=== PATIENT | male | born 1950 | race Caucasian/White ===

== ENCOUNTER 2020-04-08 06:32 | Inpatient (IN) | payer MEDICARE, MEDICAID, SELFPAY ==
[2020-04-08] VITALS (12 sets, daily range): BP systolic 147–176; BP diastolic 81–91; PULSE 66–81; RESP 14–68; TEMP 36.5–37.2; O2SAT 95–99; BMI 30.6
--- NOTE | 2020-04-08 06:35 | CT_ITS ---
EXAMINATION: CT HEAD WITHOUT CONTRAST (STROKE PROTOCOL) CLINICAL INFORMATION: Stroke protocol. Left-sided hemiparesis COMPARISON: None TECHNIQUE: Contiguous axial imaging was performed from the skull base to vertex without intravenous administration of contrast. This CT examination was performed using dose optimization techniques as appropriate, variously including the following: *Automated exposure control *Adjustment of mA and/or kV according to patient size (this includes techniques or standardized protocols for targeted exams where dose is matched to indication/reason for exam; i.e. extremities or head) *Use of iterative reconstruction technique DLP: 631 mGy-cm FINDINGS: There is no evidence of acute intracranial hemorrhage or territorial infarction. No abnormal mass-effect or midline shift is seen. [place]ac[place] to white matter differentiation is well preserved. No extra-axial fluid collections are identified. The ventricles are normal in size. There is moderate periventricular white matter hypoattenuation consistent with chronic small vessel ischemic disease. There is a region of chronic appearing infarct in the left occipital lobe. Small region of chronic infarct is suspected in the right frontal lobe. The osseous structures and soft tissues are normal. The mastoid air cells and visualized portions of the paranasal sinuses are well-aerated. CT/CT head for stroke IMPRESSION: No acute intracranial hemorrhage. Chronic appearing regions of infarct in the left occipital lobe and right frontal lobe, on a background of moderate chronic small vessel ischemic disease. This limits detection for superimposed acute infarct, which would be better assessed with MRI. This critical result was discussed with Dr. Velasquez on 04/08/2020 6:52 AM, and it was ascertained that the content and urgency of the report was understood at the time of direct communication.
--- NOTE | 2020-04-08 06:35 | CT_ITS ---
CT ANGIOGRAM NECK WITH CONTRAST CT ANGIOGRAM BRAIN WITH CONTRAST CLINICAL INFORMATION: Left-sided hemiparesis. COMPARISON: Head CT performed earlier the same day appear TECHNIQUE: Test bolus sequences followed by intravenous administration 70 mL of Omnipaque 350. Helical imaging was performed in the axial plane from the thoracic inlet to the skull vertex. Delayed postcontrast imaging of the head was also performed. The data was processed at the radiological technologist workstation for generation of MIP sequences. Angled MIPs and volume rendered reformatted images were also generated at an offline 3D workstation under concurrent supervision. Stenoses are assessed in accordance with NASCET criteria unless otherwise indicated. This CT examination was performed using dose optimization techniques as appropriate, variously including the following: *Automated exposure control *Adjustment of mA and/or kV according to patient size (this includes techniques or standardized protocols for targeted exams where dose is matched to indication/reason for exam; i.e. extremities or head) *Use of iterative reconstruction technique FINDINGS: BRAIN: There is jeff to white matter differentiation loss within the right precentral gyrus just lateral to the right hand knob suggestive of a small acute right MCA territory infarct. MRI would be helpful in more definitive assessment. Advanced chronic microangiopathy and chronic appearing infarcts within the right frontal and left occipital lobes. There is no intracranial hemorrhage, hydrocephalus, extra-axial surface collection, midline shift, or other herniation pattern. The basilar cisterns are preserved. No significant soft tissue abnormality. No acute osseous abnormality. The paranasal sinuses and the mastoid air cells are well aerated.] CERVICAL SOFT TISSUES AND LUNG APICES: Imaged upper lungs are clear. Multilevel cervical spondylosis. No significant soft tissue findings. NECK CTA: [There is a classic 3 vessel configuration of the aortic arch. Proximal arch vessels are non-stenotic. The vertebral arteries are codominant. No significant ostial stenosis is visualized on either side. Both vertebral arteries are widely patent throughout their extracranial cervical course. Atherosclerotic calcification of the carotid bifurcations bilaterally resulting in less than 50% stenoses of the proximal internal carotid arteries bilaterally. BRAIN CTA: [There is normal opacification of major intracranial arteries. No focal flow-limiting stenosis nor discrete proximal large artery occlusion. There is a 2 mm infundibulum versus aneurysm projecting posterior medially from the communicating segment of the left internal carotid artery on image 365 of series 8. Timing of the contrast bolus allows assessment of the major dural venous sinuses, which all opacify normally] CT/CT angio head neck stroke IMPRESSION: - There is jeff to white matter differentiation loss within the right precentral gyrus just lateral to the right hand knob suggestive of a small acute right MCA territory infarct. MRI would be helpful in more definitive assessment. - Advanced chronic microangiopathy and chronic appearing infarcts within the right frontal and left occipital lobes. - No acute arterial occlusions and no significant arterial stenoses within the head or neck. - There is a 2 mm infundibulum versus aneurysm projecting posterior medially from the communicating segment of the left internal carotid artery on image 365 of series 8. Stroke protocol CTA discussed with Dr. Velasquez at 7:23 AM on April 08, 2020.
--- NOTE | 2020-04-08 06:35 | XR_ITS ---
EXAMINATION: XR CHEST CLINICAL INFORMATION: Stroke COMPARISON: None TECHNIQUE: Frontal view of the chest was obtained. FINDINGS: The cardiac and mediastinal contours are normal. The lungs are clear. There is no pleural effusion. There are degenerative changes of the spine. XR/XR chest 1V IMPRESSION: No evidence for acute disease in the chest.
--- NOTE | 2020-04-08 06:35 | ECG_ITS ---
Test Reason : STROKE Blood Pressure : / mmHG Vent. Rate : 077 BPM Atrial Rate : 077 BPM P-R Int : 148 ms QRS Dur : 088 ms QT Int : 386 ms P-R-T Axes : 072 046 053 degrees QTc Int : 436 ms Sinus rhythm with Premature supraventricular complexes Otherwise normal ECG No previous ECGs available Referred By: Janeth Velasquez Electronically Signed By:Maxi Barboza
--- NOTE | 2020-04-08 06:39 | PC.NURSE ---
at bedside. IV established, labs obtained. Pt to CT on hospital bed.
--- NOTE | 2020-04-08 06:40 | ED.NEUROSD ---
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 takes no medications Onset (ago): hour(s) (3 hours noted symptoms but last normal 1030pm) Location: left face, left arm, left leg and ataxia History of same: No Severity: severe Quality: weak and constant Relieving factors: none Exacerbating factors: none Context: sudden onset On Anticoagulants: No Associated symptoms: denies other symptoms Related Data Home Medications Medication Instructions Recorded Confirmed No Known Home Meds 04/08/20 04/08/20 Allergies Allergy/AdvReac Type Severity Reaction Status Date / Time Penicillins Allergy Unknown Unknown Verified 04/08/20 06:48 Review of Systems Review of Systems: Constitutional : No Weight loss, No Fever, No Chills, No Fatigue, No Malaise ENT/Mouth : No sore throat, No Rhinorrhea Eyes: No Eye Pain, No Swelling, No Redness Cardiovascular : No Chest Pain, No SOB, No Dyspnea on Exertion, No Orthopnea, No Edema, No Palpitations Respiratory : No Cough, No Sputum, No Wheezing Gastrointestinal : No Nausea, No Vomiting, No Diarrhea, No Constipation, No abdominal Pain, No Hematochezia, No Melena Genitourinary : No Dysuria, No Urinary Frequency, No Hematuria, Musculoskeletal : No joint pain, No Myalgias, No Joint Swelling Skin : No Skin Lesions, No rash Neuro : pos Weakness, No Numbness, No Dizziness, No Headache Psych : No Anxiety/Panic, No Depression Heme/Lymph: No Bruising, No Bleeding,No Lymphadenopathy Endocrine : No Polyuria, No Polydipsia All other systems reviewed and are negative [facility] Past Medical History Attestation statement: The following information was validated with the patient. Medical History No known health problems Social History Social History (Updated 04/08/20 @ 06:49 by Janeth Velasquez DO) Smoking Status: Current every day smoker Use of substances other than those prescribed or required for medical reasons: No Advance Directives: No Physical Exam Vital Signs: Vital Signs: Last Vital Signs Temp 98.9 F 04/08/20 07:24 Pulse 81 04/08/20 07:24 Resp 17 04/08/20 07:24 BP 154/86 H 04/08/20 07:24 Pulse Ox 97 04/08/20 07:24 Body Mass Index 30.6 Appearance: Alert. Oriented X3. No acute distress. Eyes: Pupils equal, round and reactive to light. ENT: Pharynx normal. Neck: Normal inspection. Neck supple. CVS: Normal heart rate and rhythm. Pulses normal. Respiratory: No respiratory distress. Breath sounds normal. Abdomen: Soft and nontender. Skin: Skin warm and dry. Normal skin color. Normal skin turgor. Extremities: No lower extremity edema. No calf ttp Neuro: Oriented X 3. dense L sided hemiparesis. No sensory deficit. unable to ambulate, L sided facial weakness Course Course Course Narrative: 652 call from [facility] - no acute hemorrhage, chronic small vessel ischemia change, old infarcts in occipital and frontal lobe patient still has facial droop but now able to move L left leg much better is starting to move L arm patient is at 4 hour shayna now I would not be able to get MRI for wake up within 4.5 hours of his onset. call from [facility] 723 am - small stroke precentral gyrus no large vessel occlusion, no clot noted, vessels are open, stroke visible on CTA PO aspirin ordered admit ordered MDM - Neuro Symptoms/Deficit MDM Narrative Medical decision making narrative: 70 yo male with dense L sided hemiparesis onset when he woke at 330am to urinate (which is normal for him to get up) does not have regular care, no AC therapy, + smoker, he was last normal at 1030pm - given onset he is not a candidate for tPa as last known well was 1030, he presented late due to issues caring for , CTA ordered for possible thrombectomy candidate. Lab Data Result diagrams: 04/08/20 06:40 04/08/20 06:40 Labs: Lab Results 01/04/08/20 04/08/20 Range/Units 06:40 06:40 06:40 WBC 6.6 (4.8-10.8) X10*3/uL RBC 5.19 (4.60-5.80) X10*6/uL Hgb 16.1 (14.0-18.0) g/dl Hct 49.4 (42-52) % MCV 95.2 (80-98) fL MCH 31.0 (27.0-33.0) pg MCHC 32.6 (31.0-36.0) g/dl RDW 12.8 (11.0-16.0) % Plt Count 252 (160-400) X10*3/uL MPV 8.9 L (9.4-12.4) fL Immature Gran % (Auto) 0.2 (0.0-0.4) % Neut % (Auto) 66.4 (45-73) % Lymph % (Auto) 19.8 L (20-40) % [place] % (Auto) 11.4 H (2-11) % Eos % (Auto) 1.7 (0-4) % Baso % (Auto) 0.5 (0-2) % Lymph # (Auto) 1.3 (1.2-4.9) X10*3/uL [place] # (Auto) 0.8 (0.1-1.2) X10*3/uL Eos # (Auto) 0.1 (0.0-0.4) X10*3/uL Baso # (Auto) 0.0 (0.0-0.2) X10*3/uL Abs Immat Gran (auto) 0.01 (0.00-0.03) X10*3/uL Absolute Neuts (auto) 4.4 (2.0-8.3) X10*3/uL Absolute Nucleated RBC 0.000 (0.0-0.012) X10*3/uL Nucleated RBC % (auto) 0.0 (0.0-0.2) /100WBC PT 10.5 L (10.8-13.0) SEC INR 0.9 (0.9-1.1) APTT 33.2 (24.1-38.0) SEC Sodium 143 (135-145) mmol/L Potassium 4.7 (3.3-5.1) mmol/l Chloride 109 H (96-108) mmol/L Carbon Dioxide 26 (22-29) mmol/L Anion Gap 13 (12-20) BUN 16 (9-16) mg/dL Creatinine 0.99 (0.5-1.4) mg/dL Estim Creat Clear Calc 62.0 Estimated GFR > 60 Random Glucose 105 (60-115) mg/dL Calcium 9.1 (8.4-10.2) mg/dL Magnesium 2.3 (1.6-2.6) mg/dL Total Bilirubin 0.7 (0.0-1.0) mg/dL Direct Bilirubin 0.2 (0.0-0.5) mg/dL AST 12 (5-37) U/L ALT 8 (0-40) U/L Alkaline Phosphatase 66 (39-117) U/L Troponin I High Sens (<3.5-35.0) ng/L Total Protein 7.0 (6.5-8.0) g/dL Albumin 4.6 (3.5-5.0) g/dL COVID-19 (MARTHA) (Negative) COVID-19 Clin Com 04/08/20 04/08/20 Range/Units 06:40 06:42 WBC (4.8-10.8) X10*3/uL RBC (4.60-5.80) X10*6/uL Hgb (14.0-18.0) g/dl Hct (42-52) % MCV (80-98) fL MCH (27.0-33.0) pg MCHC (31.0-36.0) g/dl RDW (11.0-16.0) % Plt Count (160-400) X10*3/uL MPV (9.4-12.4) fL Immature Gran % (Auto) (0.0-0.4) % Neut % (Auto) (45-73) % Lymph % (Auto) (20-40) % [place] % (Auto) (2-11) % Eos % (Auto) (0-4) % Baso % (Auto) (0-2) % Lymph # (Auto) (1.2-4.9) X10*3/uL [place] # (Auto) (0.1-1.2) X10*3/uL Eos # (Auto) (0.0-0.4) X10*3/uL Baso # (Auto) (0.0-0.2) X10*3/uL Abs Immat Gran (auto) (0.00-0.03) X10*3/uL Absolute Neuts (auto) (2.0-8.3) X10*3/uL Absolute Nucleated RBC (0.0-0.012) X10*3/uL Nucleated RBC % (auto) (0.0-0.2) /100WBC PT (10.8-13.0) SEC INR (0.9-1.1) APTT (24.1-38.0) SEC Sodium (135-145) mmol/L Potassium (3.3-5.1) mmol/l Chloride (96-108) mmol/L Carbon Dioxide (22-29) mmol/L Anion Gap (12-20) BUN (9-16) mg/dL Creatinine (0.5-1.4) mg/dL Estim Creat Clear Calc Estimated GFR Random Glucose (60-115) mg/dL Calcium (8.4-10.2) mg/dL Magnesium (1.6-2.6) mg/dL Total Bilirubin (0.0-1.0) mg/dL Direct Bilirubin (0.0-0.5) mg/dL AST (5-37) U/L ALT (0-40) U/L Alkaline Phosphatase (39-117) U/L Troponin I High Sens < 3.5 (<3.5-35.0) ng/L Total Protein (6.5-8.0) g/dL Albumin (3.5-5.0) g/dL COVID-19 (MARTHA) Negative (Negative) COVID-19 Clin Com See Note ECG Data Attestation: I personally reviewed and interpreted this ECG as follows: ECG interpretation date: 04/08/20 ECG interpretation time: 07:24 Interpretation: Rate: 77 Rhythm: NSR [place]: normal Normal P waves. Normal AUTUMN. Normal QRS complex. ST T wave : normal qTC: normal prior studies: no acute ischemia The study has been interpreted contemporaneously by me. . NIH Stroke Scale Internal: Initial- Upon Arrival Level of Consciousness: Alert Level of Consciousness Questions: Answers both questions correctly Level of Consciousness Commands: Performs both tasks correctly Best Gaze: Normal Visual: No visual loss Facial Palsy: Complete paralysis Motor Arm (Right): No drift Motor Arm (Left): No movement Motor Leg (Right): No drift Motor Leg (Left): No effort against gravity Limb Ataxia: Present in one limb Sensory: Normal Best Language: No aphasia Dysarthia: Normal Extinction and Inattention: No abnormality Score: 11 Discharge Plan Discharge Clinical Impression: Cerebrovascular accident Patient Disposition: Admitted As Inpatient Prescriptions: No Action No Known Home Meds RF: 0
[2020-04-08 06:48] LABS: MANUAL DIFF FLAG NO
--- NOTE | 2020-04-08 06:48 | PC.NURSE ---
Per pt, no known home medications. Pt states he has not seen a doctor in several years.
[2020-04-08 06:54] LABS: Basophils Percent Auto 0.5 % (0-2); Eosinophils Absolute Auto 0.1 X10*3/uL (0.0-0.4); Eosinophils Percent Auto 1.7 % (0-4); Hematocrit 49.4 % (42-52); Hemoglobin 16.1 g/dl (14.0-18.0); Imm Gran Abs Auto 0.01 X10*3/uL (0.00-0.03); Imm Gran Pct Auto 0.2 % (0.0-0.4); Lymphocytes Absolute Auto 1.3 X10*3/uL (1.2-4.9); Lymphocytes Percent Auto 19.8 % (20-40); Mean Corpuscular HGB Conc 32.6 g/dl (31.0-36.0); Mean Corpuscular Volume 95.2 fL (80-98); Mean Platelet Volume 8.9 fL (9.4-12.4); Monocytes Absolute Auto 0.8 X10*3/uL (0.1-1.2); Monocytes Percent Auto 11.4 % (2-11); Neutrophils Absolute Auto 4.4 X10*3/uL (2.0-8.3); Neutrophils Percent Auto 66.4 % (45-73); Platelet Count 252 X10*3/uL (160-400); Red Blood Count 5.19 X10*6/uL (4.60-5.80); Red Cell Distribution Width 12.8 % (11.0-16.0); White Blood Count 6.6 X10*3/uL (4.8-10.8)
[2020-04-08 07:00] LABS: INTERNATIONAL NORM RATIO 0.9 (0.9-1.1); Prothrombin Time 10.5 SEC (10.8-13.0)
[2020-04-08] MEDS: iohexoL 350 MG/ML 100 ML INFUS..BTL IV (07:00)
[2020-04-08 07:03] LABS: Partial Thromboplastin Time 33.2 SEC (24.1-38.0)
[2020-04-08 07:07] LABS: COVID-19 Test Negative (Negative)
[2020-04-08 07:19] LABS: Alanine Aminotransferase 8 U/L (0-40); Albumin Level 4.6 g/dL (3.5-5.0); Alkaline Phosphatase 66 U/L (39-117); Anion Gap 13 (12-20); Aspartate Amino Transferase 12 U/L (5-37); Bilirubin Direct 0.2 mg/dL (0.0-0.5); Bilirubin Total 0.7 mg/dL (0.0-1.0); Blood Urea Nitrogen 16 mg/dL (9-16); Calcium 9.1 mg/dL (8.4-10.2); Carbon Dioxide 26 mmol/L (22-29); Chloride 109 mmol/L (96-108); Estimated Glomerular Filt Rate > 60; Glucose Random 105 mg/dL (60-115); Magnesium 2.3 mg/dL (1.6-2.6); Potassium 4.7 mmol/l (3.3-5.1); Sodium 143 mmol/L (135-145)
[2020-04-08 07:20] LABS: Troponin-I High Sensitivity < 3.5 ng/L (<3.5-35.0)
[2020-04-08] MEDS: Aspirin Enteric Coated 325 MG TABLET.DR PO (07:33)
[2020-04-08] MEDS: 0.9 % Sodium Chloride 500 ML IV (07:34)
--- NOTE | 2020-04-08 08:45 | PC.NURSE ---
pt has impaired mobility in left arm. able to raise left arm slightly, but not able to squeeze fingers. right arm has full range of motion. pt able to lift both legs and push/pull with both feet bilaterally. facial droop noted on left side. alert and oriented x3. speech is clear.
[2020-04-08 09:06] LABS: Glucose, Whole Blood 96 mg/dL (60-115)
--- NOTE | 2020-04-08 09:59 | MR_ITS ---
EXAMINATION: MR BRAIN WITHOUT CONTRAST CLINICAL INFORMATION: Stroke evaluation. COMPARISON: CT from 04/08/2020 TECHNIQUE: Multiplanar, multisequence imaging of the brain was performed without contrast. FINDINGS: There is restricted diffusion in the precentral gyrus of the posterior right frontal lobe along the mid to high convexity and to a lesser degree affecting a portion of the postcentral gyrus of the right parietal lobe as well. No significant mass effect or hemorrhagic conversion visible. There is encephalomalacia and gliosis with chronic hemosiderin staining in the left occipital lobe due to a presumed chronic infarct. Severe chronic white matter microangiopathy evident with generalized parenchymal volume loss. There is no evidence of hydrocephalus. No extra-axial fluid collections are seen. There are small chronic infarcts in the cerebellum. The brainstem is normal. The major intracranial flow voids at the level of the [place] of [place] are preserved. There is a 2.0 cm retention cyst in the left maxillary antrum with mild mucosal thickening. The mastoid air cells are aerated. The craniovertebral junction, marrow signal, and midline structures are normal. The dural venous sinus flow voids are maintained. There is significant disc space narrowing with a disc-osteophyte complex mildly impressing upon the ventral thecal sac at the C4-C5 level. MR/MR head/brain wo con IMPRESSION: 1. Acute infarct involving the precentral gyrus in the posterior right frontal lobe and a smaller portion of the adjacent postcentral gyrus in the right parietal lobe without hemorrhagic conversion or significant mass effect. 2. Chronic infarct in the left occipital lobe. Severe chronic white matter microangiopathy and generalized parenchymal volume loss. Small chronic infarcts in the cerebellum.
--- NOTE | 2020-04-08 10:01 | PM.IMHP ---
History of Present Illness Date of Service: 04/08/20 Chief Complaint: Weakness 70 year old man presenting with weakness. Three hundred thirty in the morning to urinate and fell to the ground. He noted that his left leg and left arm were paralyzed. he did not seek medical attention immediately. He reported that had right eye cloudiness to his peripheral vision and floaters over the last 3 months. He reported that he has not seen a doctor in more than 40 years and has no medical history as far as he is concerned. 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 He also does not take any medications. He denied chest pain, shortness of breath, nausea, vomiting, diarrhea. In the ER, his blood pressure was noted to be elevated. He does smoke a pack to a pack and half of cigarettes a day. Head and neck CTA showed small acute right MCA territory infarction. Chronic appearing infarcts within the right frontal and left occipital lobe. No acute occlusion or stenosis noted. His labs are within acceptable limits, vital signs are stable and blood pressure is improving. He was given aspirin, atorvastatin and year. Will be admitted for further management and treatment of acute stroke. Review of Systems Review of Systems: Denies any recent fever chills or decrease in appetite respiratory denies any shortness of breath coverage production cardiovascular is adjustment of any PND or edema gastrointestinal denies any dysphagia abdominal pain nausea vomiting or diarrhea genitourinary denies any dysuria frequency or hematuria musculoskeletal denies any joint pain or swelling neuropsych See above all other systems reviewed are negative [facility] Medical History No known health problems Family History (Updated 04/08/20 @ 12:13 by Yvonne Sher NP) Other Stroke Social History (Updated 04/08/20 @ 12:14 by Yvonne Sher NP) Smoking Status: Current every day smoker Packs Per Day: 1 Use of substances other than those prescribed or required for medical reasons: No Advance Directives: No Meds Allergies Allergy/AdvReac Type Severity Reaction Status Date / Time Penicillins Allergy Unknown Unknown Verified 04/08/20 06:48 Home Medications Medication Instructions Recorded Confirmed Type No Known Home Meds 04/08/20 04/08/20 History Physical Exam Vital Signs and Narrative: Vital Signs: Last Vital Signs Temp 98.0 F 04/08/20 08:30 Pulse 75 04/08/20 08:30 Resp 20 04/08/20 08:30 BP 176/91 H 04/08/20 08:30 Pulse Ox 97 04/08/20 08:30 Body Mass Index 30.6 Appearing in no acute distress head is normocephalic atraumatic eyes pupils are PERRLA sclera is anicteric mouth throat mucous membranes are intact and moist neck is supple no lymphadenopathy, no JVD noted lung sounds are clear to auscultation heart regular rate rhythm, clear S1, S2 positive bowel sounds, abdomen is soft, nontender neuro patient is alert x3, Dense but improving hemiplegia to right arm. Results Labs CBC and Chem 7: 04/08/20 06:40 04/08/20 06:40 Labs: Laboratory Results - last 24 hr 04/08/20 04/08/20 04/08/20 06:37 06:37 06:40 MCV 95.2 MCH 31.0 MCHC 32.6 RDW 12.8 Plt Count 252 MPV 8.9 L Immature Gran % (Auto) 0.2 Neut % (Auto) 66.4 Lymph % (Auto) 19.8 L [place] % (Auto) 11.4 H Eos % (Auto) 1.7 Baso % (Auto) 0.5 Lymph # (Auto) 1.3 [place] # (Auto) 0.8 Eos # (Auto) 0.1 Baso # (Auto) 0.0 Abs Immat Gran (auto) 0.01 Absolute Neuts (auto) 4.4 Absolute Nucleated RBC 0.000 Nucleated RBC % (auto) 0.0 PT Whole Blood PT 12.0 INR Whole Blood INR 1.0 APTT Anion Gap Estim Creat Clear Calc Estimated GFR POC Glucose 96 Random Glucose Calcium Magnesium Total Bilirubin Direct Bilirubin AST ALT Alkaline Phosphatase Troponin I High Sens Total Protein Albumin COVID-19 (MARTHA) COVID-19 Clin Com 04/08/20 04/08/20 04/08/20 06:40 06:40 06:40 MCV MCH MCHC RDW Plt Count MPV Immature Gran % (Auto) Neut % (Auto) Lymph % (Auto) [place] % (Auto) Eos % (Auto) Baso % (Auto) Lymph # (Auto) [place] # (Auto) Eos # (Auto) Baso # (Auto) Abs Immat Gran (auto) Absolute Neuts (auto) Absolute Nucleated RBC Nucleated RBC % (auto) PT 10.5 L Whole Blood PT INR 0.9 Whole Blood INR APTT 33.2 Anion Gap 13 Estim Creat Clear Calc 62.0 Estimated GFR > 60 POC Glucose Random Glucose 105 Calcium 9.1 Magnesium 2.3 Total Bilirubin 0.7 Direct Bilirubin 0.2 AST 12 ALT 8 Alkaline Phosphatase 66 Troponin I High Sens < 3.5 Total Protein 7.0 Albumin 4.6 COVID-19 (MARTHA) COVID-19 Clin Com 04/08/20 06:42 MCV MCH MCHC RDW Plt Count MPV Immature Gran % (Auto) Neut % (Auto) Lymph % (Auto) [place] % (Auto) Eos % (Auto) Baso % (Auto) Lymph # (Auto) [place] # (Auto) Eos # (Auto) Baso # (Auto) Abs Immat Gran (auto) Absolute Neuts (auto) Absolute Nucleated RBC Nucleated RBC % (auto) PT Whole Blood PT INR Whole Blood INR APTT Anion Gap Estim Creat Clear Calc Estimated GFR POC Glucose Random Glucose Calcium Magnesium Total Bilirubin Direct Bilirubin AST ALT Alkaline Phosphatase Troponin I High Sens Total Protein Albumin COVID-19 (MARTHA) Negative COVID-19 Clin Com See Note Imaging Radiologist's Impressions: Impressions Chest X-Ray 04/08/20 06:35 IMPRESSION: No evidence for acute disease in the chest. Head CT 04/08/20 06:35 IMPRESSION: No acute intracranial hemorrhage. Chronic appearing regions of infarct in the left occipital lobe and right frontal lobe, on a background of moderate chronic small vessel ischemic disease. This limits detection for superimposed acute infarct, which would be better assessed with MRI. This critical result was discussed with Dr. Velasquez on 04/08/2020 6:52 AM, and it was ascertained that the content and urgency of the report was understood at the time of direct communication. Head/Neck CTA 04/08/20 06:35 IMPRESSION: - There is jeff to white matter differentiation loss within the right precentral gyrus just lateral to the right hand knob suggestive of a small acute right MCA territory infarct. MRI would be helpful in more definitive assessment. - Advanced chronic microangiopathy and chronic appearing infarcts within the right frontal and left occipital lobes. - No acute arterial occlusions and no significant arterial stenoses within the head or neck. - There is a 2 mm infundibulum versus aneurysm projecting posterior medially from the communicating segment of the left internal carotid artery on image 365 of series 8. Stroke protocol CTA discussed with Dr. Velasquez at 7:23 AM on April 08, 2020. Assessment and Plan (1) Cerebrovascular accident: Qualifiers: CVA mechanism: unspecified Qualified Code(s): I63.9 - Cerebral infarction, unspecified Status: Acute 70 year old man admitted with stroke. Stroke. MRI, Echo, aspirn, statin, lipid panel, Neurology to follow. PT/OT. Elevated blood pressure reading. No history of hypertension DVT prophylaxis with Lovenox. Discussed with Dr. Thao Full code.
--- NOTE | 2020-04-08 10:17 | MHC.STROKE ---
Addendum entered by Paris Sandoval RN 04/09/20 14:19: The patient is willing to start on lipitor 20mg because is LDL is 93. He will see how he tolerates this. He does not want a high dose at this time. Addendum entered by Paris Sandoval RN 04/09/20 11:29: I MET WITH THE PATIENT TODAY TO DISCUSS HIS MRI, LIPID PANEL, ETC. I REVIEWED A SCREEN SHOT OF THE MRI WITH HIM AND IDENTIFIED THE LOCATION OF THE STROKES. RIGHT MCA AND LEFT OCCIPITAL. WE AGAIN DISCUSSED THE SYMPTOMS ASSOCIATED WITH THESE AREAS OF THE BRAIN. HIS LDL WAS 93 WHICH IS ONLY SLIGHTLY ELEVATED AND MENTIONED THAT THE GOAL IS 70. WE AGAIN TALKED ABOUT SMOKING CESSATION AND POSSIBLE STARTED ON CHANTIX. HE'S BEEN SMOKING SINCE AGE 15. HE STILL IS EXPERIENCING LEFT ARM DROOP AND HE IS USING HIS RIGHT ARM TO LEFT AND MOVE THAT LEFT ARM. HE IS STILL EXPERIENCING SOME PARTIAL RIGHT HEMIANOPSIA. WE DISCUSSED THE RECOMMENDATIONS FOR ACUTE REHAB, HE MENTIONED HIS DID HAVE PT/OT SERVICES AT HOME AND HE DISCUSSED THAT OPTION. HE IS VERY MUCH WORRIED ABOUT HER BECAUSE HE AND HIS SON ARE THE PRIMARY CAREGIVERS. I DID STRESS THE IMPORTANCE OF ACUTE REHAB AND HOW MANY SKILLS HE CAN LEARN AT THE REHAB FACILITY. HE IS STILL TRYING TO MAKE A DECISION. I GAVE HIM ADDITIONAL STROKE EDUCATION MATERIAL [[employer] HANDOUTS]. I WAS ABLE TO ANSWER ALL OF HIS QUESTIONS. I ROUNDED WITH DR PINZON AND DISCUSSED HIS CASE WITH KERVIN LOGAN IN CASE MANAGEMENT. Original Note: ARRIVED AT 0632 FOR SUSPECTED STROKE, STAT CT HEAD DONE AT 0640 FOLLOWED BY CTA H/N. NO BLEED, PRIOR SILENT STROKES NOTED, NO LVO. LAST KNOWN WELL 04/07/20 AT 2230 WHEN HE WENT TO BED. HE WAS SYMPTOM FREE ALL DAY YESTERDAY. HE WOKE AT 0330 WITH LEFT HEMIPARESIS. NIHSS = 11. HE IS OUT OF THE WINDOW FOR TPA AND NO INDICATION FOR THROMBECTOMY. HE IS RIGHT HANDED, HE PASSED SWALLOW SCREEN PRIOR TO ASPIRIN. I DID MEET WITH HIM AND INITIATE STROKE EDUCATION. I REVIEWED THE PLAN OF CARE AND PROVIDED REASSURANCE. HE CARES FOR HIS WHO IS BEDRIDDEN WITH MS (SHE SEES A NEUROLOGIST IN [facility]). HE HIMSELF HAS NOT SEEN A DOCTOR AND DOES NOT TAKE CARE OF HIMSELF. HE DOES SMOKE AND CANNOT TAKE, GUM, LOZENGE OR PATCH (SEVERE RASH/BLISTERS). HE COULD BENEFIT FROM CHANTIX. HIS MAP IS STAYING AROUND 116-120 WHICH IS IDEAL IN THE ACUTE PHASE. HIS SYMPTOMS ARE SLIGHTLY IMPROVING AFTER ASPIRIN. HE ADMITS TO POSSIBLE BLOOD CLOTS IN HIS LOWER EXTREMITIES IN THE PAST. I DID REVIEW THE CASE WITH DR NICHOLE. THE STROKE ORDER SET HAS BEEN USED. MRI IS BEING DONE WITHIN THE HOUR, ECHO ORDERED. LIPID PANEL, PT/OT. I WILL CONTINUE TO FOLLOW.
--- NOTE | 2020-04-08 10:35 | PM.NEUROCN ---
History of Present Illness Data of Consult Service Date: 04/08/20 Primary Care Provider: None Physician 70 years old man who slept with no significant problem at about 22:00 last night and woke up at 03:30 noticing that his left arm was weak. He did not come to emergency room right away and came at about 06:00. He was evaluated for acute stroke and his imaging revealed a stroke-like lesion with no large vessel disease and he was admitted for further evaluation. He was not having dizziness or headache or any leg weakness. There was no history of trauma or any complain of neck pain. Review of Systems Review of Systems: No recent trauma cold or flu-like illness. [facility] Past Medical History Medical History No known health problems Social History Social History (Updated 04/08/20 @ 06:49 by Janeth Velasquez DO) Smoking Status: Current every day smoker Use of substances other than those prescribed or required for medical reasons: No Advance Directives: No Meds Allergies Allergy/AdvReac Type Severity Reaction Status Date / Time Penicillins Allergy Unknown Unknown Verified 04/08/20 06:48 Home Medications Medication Instructions Recorded Confirmed Type No Known Home Meds 04/08/20 04/08/20 History Physical Exam Vital Signs: Vital Signs: Last Vital Signs Temp 97.7 F 04/08/20 10:31 Pulse 74 04/08/20 10:31 Resp 18 04/08/20 10:31 BP 149/91 H 04/08/20 10:31 Pulse Ox 97 04/08/20 10:31 Body Mass Index 30.6 He was alert and awake with normal spontaneity of speech fluency comprehension and affect. Pupils were equal and reactive to light and extraocular muscles were intact. This seems to be dense right hemianopsia. There is mild left central type facial weakness. He was unable to move his hand but able to left arm at shoulder joint against gravity. He was easily able to lift his leg above against gravity. Deep tendon reflexes were trace with flexor plantars. There was no sensory extinction. Results Labs CBC & Chem 7: 04/08/20 06:40 04/08/20 06:40 Labs: Short CBC 04/08/20 Range/Units 06:40 WBC 6.6 (4.8-10.8) X10*3/uL Hgb 16.1 (14.0-18.0) g/dl Hct 49.4 (42-52) % Plt Count 252 (160-400) X10*3/uL BMP 04/08/20 06:40 Sodium 143 Potassium 4.7 Chloride 109 H Carbon Dioxide 26 BUN 16 Creatinine 0.99 Calcium 9.1 Liver Function 04/08/20 Range/Units 06:40 Total Bilirubin 0.7 (0.0-1.0) mg/dL Direct Bilirubin 0.2 (0.0-0.5) mg/dL AST 12 (5-37) U/L ALT 8 (0-40) U/L Alkaline Phosphatase 66 (39-117) U/L Albumin 4.6 (3.5-5.0) g/dL His CT and CT of brain reviewed. Significant microvascular ischemic disease was noted including a chronic right basal ganglia area at larger lacunar-type infarct and left posterior cerebral artery infarct. A tiny aneurysm was also reported. Assessment and Plan (1) Multiple cerebral infarctions: Status: Acute 70 years old man with multiple multivessel cerebral infarctions. His deficit included left face and arm weakness, which was new, and a right hemianopsia, which probably was few weeks old. He came in with acute onset of left arm weakness but significantly delayed to the point that he could not be treated with intravenous tPA. There was no obvious large vessel disease. At this time I would recommend obtaining a noncontrast MRI of brain to define pathology and also investigate is hard to rule out cardiac source of embolism. In the meantime he should be treated with anti-platelet agent and statin. PT OT consultation is recommended. (2) Cerebral aneurysm: Status: Acute This size of his symptomatic aneurysm does not require any intervention at this time.
--- NOTE | 2020-04-08 10:44 | PC.NURSE ---
pt speech is intact. no distress noted. no changes in neuro assessment. seen by flight operation coordinator. awaiting MRI.
[2020-04-08] MEDS: Enoxaparin Sodium 40 MG/0.4 ML SYRINGE SUBCUT (12:41)
--- NOTE | 2020-04-08 15:50 | P.EN_ITS ---
Event Note Date of Service: 04/09/20 Event Note: Patient seen examined case discussed with APC agree with above lambert atment plan 70-year-old gentleman with no known history of diabetes hypertension or hyperlipidemia has not seen a physician in last several years presented to [facility] due to acute onset of left-sided weakness starting at 03:30 when patient woke up to use the bathroom he fell down but did not seek agitation e-mail attention immediately came to the emergency room at 06:30 a.m. as CTA head and neck revealed a small right MCA territory infarction due to delay in presentation patient was deemed not a candidate for tPA a MRI brain showed multiple old infarction involving left occipital lobe and cerebellum and an acute right frontal and adjuscent right parietal lobe infarction. On examination patient awake alert speech clear Neuro awake alert to time place and person, able to move left upper extremity but weakness of left hand. Plan Check echocardiogram, lipid profile, follow blood pressure closely avoid hypotension Obtain PT OT eval Tele monitor to rule out arrhythmia/AFib
[2020-04-08 15:57] LABS: Glucose, Whole Blood 91 mg/dL (60-115)
[2020-04-09 04:00] VITALS: BP 133/87; PULSE 66; RESP 18; TEMP 36.6; O2SAT 94
[2020-04-09 06:26] LABS: MANUAL DIFF FLAG NO
[2020-04-09 06:50] LABS: Basophils Percent Auto 0.6 % (0-2); Eosinophils Absolute Auto 0.2 X10*3/uL (0.0-0.4); Eosinophils Percent Auto 2.4 % (0-4); Hematocrit 47.9 % (42-52); Hemoglobin 15.7 g/dl (14.0-18.0); Imm Gran Abs Auto 0.02 X10*3/uL (0.00-0.03); Imm Gran Pct Auto 0.3 % (0.0-0.4); Lymphocytes Absolute Auto 1.2 X10*3/uL (1.2-4.9); Lymphocytes Percent Auto 19.7 % (20-40); Mean Corpuscular HGB Conc 32.8 g/dl (31.0-36.0); Mean Corpuscular Hemoglobin 30.7 pg (27.0-33.0); Mean Corpuscular Volume 93.7 fL (80-98); Mean Platelet Volume 9.3 fL (9.4-12.4); Monocytes Absolute Auto 0.7 X10*3/uL (0.1-1.2); Monocytes Percent Auto 11.3 % (2-11); Neutrophils Absolute Auto 4.1 X10*3/uL (2.0-8.3); Neutrophils Percent Auto 65.7 % (45-73); Platelet Count 248 X10*3/uL (160-400); Red Blood Count 5.11 X10*6/uL (4.60-5.80); Red Cell Distribution Width 12.6 % (11.0-16.0); White Blood Count 6.2 X10*3/uL (4.8-10.8)
[2020-04-09 07:05] VITALS: BP 137/83; PULSE 69; RESP 20; TEMP 36.7; O2SAT 96
[2020-04-09 07:10] LABS: Anion Gap 13 (12-20); Blood Urea Nitrogen 13 mg/dL (9-16); Calcium 8.8 mg/dL (8.4-10.2); Carbon Dioxide 24 mmol/L (22-29); Chloride 105 mmol/L (96-108); Cholesterol 160 mg/dL; Creatinine Clr Calc Pharmacy 66.7; Estimated Glomerular Filt Rate > 60; Glucose Random 84 mg/dL (60-115); HDL Cholesterol 54 mg/dL; LDL Cholesterol Calculated 93 mg/dl; Potassium 3.9 mmol/l (3.3-5.1); Sodium 138 mmol/L (135-145); Triglycerides 67 mg/dL
[2020-04-09] MEDS: Atorvastatin Calcium 80 MG TABLET PO (08:41)
[2020-04-09] MEDS: Aspirin Enteric Coated 81 MG TABLET.DR PO (08:41)
--- NOTE | 2020-04-09 08:58 | MHC.CM.PN ---
CM met with Patient at bed side. Patient lives in a house, with his who is bedridden , and with his Son, who is now caring for his . Patient has no PCP; he has not seen a Doctor in over 45 years (this will prevent home services from being an insurance paid option). Patient expressed interest in the area acute rehabs ([facility], [facility], and [facility]) and referrals will be made to those facilities. Patient has no HCP and is not sure if he wants to fill one out at this time. IMM addressed with Patient and the original has been given to him and a copy has been placed on the chart. CM has initiated and will follow for dc planning.
[2020-04-09 11:06] VITALS: BP 124/86; PULSE 77; RESP 20; TEMP 36.6; O2SAT 96
[2020-04-09 11:35] VITALS: BMI 30.6
[2020-04-09 12:01] VITALS: BP 124/86; PULSE 77; O2SAT 96
--- NOTE | 2020-04-09 13:00 | CA_ITS ---
Transthoracic Echocardiogram Patient (Last, First, Middle): Jeremy Winter, Gender: Male Date of : 1950 Age: 70 Procedure Date: 04/09/2020 Procedure Type: Transthoracic Echocardiogram [place] [facility] [place] Height: 157.48 cm Weight: 75.75 kg BSA: 1.77 m2 Heart Rate: bpm BP: 137 / 83 mmHg Approver: HELENA Referring MD: Yvonne Sher NP Symptoms: STROKE Conclusions: - Normal left ventricular size, thickness, systolic function, and wall motion. The visually estimated ejection fraction is between 60-65%. Diastolic function is normal for age. - Normal right ventricular cavity size and systolic function. - Both atria are normal in size. There is no evidence of interatrial shunt by color Doppler. Findings Left Ventricle Normal left ventricular size, thickness, systolic function, and wall motion. The visually estimated ejection fraction is between 60-65%. Diastolic function is normal for age. Right Ventricle Normal right ventricular cavity size and systolic function. Atria Both atria are normal in size. There is no evidence of interatrial shunt by color Doppler. Aortic Valve Normal aortic valve structure and function. There is no aortic valve stenosis. There is no aortic valve regurgitation. Mitral Valve Normal mitral valve structure and function. There is no mitral valve regurgitation. There is no mitral valve stenosis. Pulmonic Valve The pulmonic valve is likely normal. Tricuspid Valve Normal tricuspid valve structure and function. There is trace tricuspid valve regurgitation. Normal right atrial pressure. There is no evidence of pulmonary hypertension. Great Vessels All visible segments of the aorta are normal in size. The visualized portions of the pulmonary artery and branches are normal. Venous The inferior vena cava is normal in size and collapses greater than 50% with inspiration. Pericardium/Pleural There is no evidence of pericardial effusion. Prior Study Comparison No prior study available for comparison. Measurements 2D Linear Measurements IVSd: 0.70 0.6-0.9/0.6-1.0 cm LVIDd: 4.57 3.9-5.3/4.2-5.9 cm LVIDd Index: 2.58 2.4-3.2/2.2-3.1 cm/m2 LVIDs: 2.17 2.0-3.6 cm LVPWd: 0.97 0.7-1.1 cm Ao Root: 2.80 2.1-3.5 cm LA Diam: 3.10 2.7-3.8/3.0-4.0 cm LAIDs Index: 1.75 1.5-2.3 cm/m2 LV Mass: 153.18 67-162/88-224 g LV Mass Index: 86.55 43-95/49-115 g/m2 LVOT Diam: 2.00 3.0+(-)1.3 cm 2D Systolic Function EF 4C: 78.70 >55% Mitral Valve MV Pk E: 0.60 MV PK A: 0.57 MV Decel Time: 206.00 E/A: 1.10 E'Lateral: 14.20 E'Medial: 7.64 E/E' Med: 7.90 E/E' Lat: 4.20 PHT: 60.00 MVA PHT: 3.67 Decel [place]: 2.92 Aortic Valve AoV Pk Willie: 1.59 AoV Pk Grad: 10.00 LVOT LVOT Pk Willie: 1.30 LVOT Mn Willie: 0.93 LVOT VTI: 0.26 LVOT Pk Grad: 7.00 LVOT Mn Grad: 4.00 LVOT Diam: 2.00 LVOT Area: 3.14 Diastolic Function MV Pk E: 0.60 MV Pk A: 0.57 E/A: 1.10 E'Medial: 7.64 E/E' Med: 7.90 E' Laterial: 14.20 E/E' Lat: 4.20 Tricuspid Valve TR Pk Willie: 2.83 TR Pk Grad: 32.00 RA Press: 3.00 RVSP: 35.00 Great Vessels Aorta Ao Root-2D: 2.80 2.0-3.7 cm Ao Asc: 2.90 2.1-3.4 cm Updated in Other Vendor System with Status of Final Maxi Barboza MD electronically signed on 04/09/2020 11:11:42 AM with status of Final
[2020-04-09] MEDS: Enoxaparin Sodium 40 MG/0.4 ML SYRINGE SUBCUT (13:55)
--- NOTE | 2020-04-09 14:02 | MHC.CM.PN ---
Patient has been medically cleared for dc to home today with [facility]. A referral has been made to [facility], who is aware of today's dc. Dr. Tello Minor will see Patient for his initial PCP visit tomorrow at 2:30 PM and then give orders to the [facility] for home OT & PT.IMM addressed with Patient this morning. Patient is aware of and pleased to be able to return home today.
--- NOTE | 2020-04-09 15:35 | P.DS_ITS ---
DS: Providers Provider Date of Service: 04/09/20 Date of admission: 04/08/20 09:59 Primary care physician: None Physician Consults: 04/08/20 09:59 Consult to Neurology Routine Consulting Provider: [facility] Reason for consultation: STROKE Has provider been notified: No DS: Diagnosis Discharge Diagnosis (1) Cerebrovascular accident: Status: Acute DS: Medications Discharge Medications Home Medications: Previous Rx's Medication Instructions Recorded aspirin 81 mg PO DAILY #30 tab 04/09/20 atorvastatin [Lipitor] 20 mg PO BEDTIME #30 tab 04/09/20 clopidogrel [Plavix] 75 mg PO DAILY #30 tab 04/09/20 DS: Summary Hospital Course Hospital Course: History of presenting illness Chief Complaint: Weakness 70 year old man presenting with weakness. Three hundred thirty in the morning to urinate and fell to the ground. He noted that his left leg and left arm were paralyzed. he did not seek medical attention immediately. He reported that had right eye cloudiness to his peripheral vision and floaters over the last 3 months. He reported that he has not seen a doctor in more than 40 years and has no medical history as far as he is concerned. 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 He also does not take any medications. He denied chest pain, shortness of breath, nausea, vomiting, diarrhea. In the ER, his blood pressure was noted to be elevated. He does smoke a pack to a pack and half of cigarettes a day. Head and neck CTA showed small acute right MCA territory infarction. Chronic appearing infarcts within the right frontal and left occipital lobe. No acute occlusion or stenosis noted. His labs are within acceptable limits, vital signs are stable and blood pressure is improving. He was given aspirin, atorvastatin and year. Will be admitted for further management and treatment of acute stroke. Past medical history no known health problems Acute CVA/tobacco use disorder 70-year-old gentleman with no known history of diabetes, hypertension or hyperlipidemia presented with acute onset of left-sided weakness but patient did not seek attention immediately was outside window of tPA CTA head and neck revealed a small right MCA territory infarction, MRI brain showed multiple old infarction involving left occipital lobe and cerebellum and acute right frontal and adjacent right parietal lobe infarction, patient echocardiogram revealed normal EF 60-65%, no interatrial shunt was noted, LDL is 93 with a total cholesterol 160 , blood sugars are stable, the only risk factor for stroke is smoking therefore patient has been strongly advised to abstain from smoking patient gets blisters to nicotine patch, get hiccups from nicotine gums therefore recommended Chantix or hypnosis advised to discuss with primary care physician, due to multiple strokes ,it raise concern for atrial fibrillation therefore advice to follow-up with Cardiology for event recorder, PCP appointment has been made for him with Dr. Tello Minor for tomorrow recommended to get cardiology referral through him patient is being discharged with [facility] and OT services Patient seen by Dr. Rachel he recommend aspirin and Plavix for 1 month and after 1 month stop Plavix and continue aspirin patient has been also started on low- dose Lipitor. Time Spent with Patient Time attestation: Total time spent providing and/or coordinating discharge services: Discharge coordination time: Greater than 30 minutes Quality: Stroke Pt Provided Written Stroke Discharge Instructions: Patient given written information Physical Exam Vital Signs: Vital Signs: Last Vital Signs Temp 97.8 F 04/09/20 11:06 Pulse 77 04/09/20 12:01 Resp 20 04/09/20 11:06 BP 124/86 04/09/20 12:01 Pulse Ox 96 04/09/20 12:01 Body Mass Index 30.6 General patient resting comfortably in no acute distress. Neck is supple no JVD. CVS regular rate rhythm, Respiratory lungs clear to auscultation, no respiratory distress, no wheeze, no rhonchi. Gastrointestinal abdomen soft, nontender, bowel sounds audible, no guarding , no rigidity. Extremities no clubbing cyanosis or edema. Neuro patient awake alert x3, speech is clear, patient has left hand weakness, plantars are flexors, no sensory deficit. Skin no rash DS: Data Data Completed and Pending Labs on day of discharge: Laboratory Tests 04/08/20 04/08/20 04/08/20 06:37 06:37 06:40 WBC 6.6 RBC 5.19 Hgb 16.1 Hct 49.4 MCV 95.2 MCH 31.0 MCHC 32.6 RDW 12.8 Plt Count 252 MPV 8.9 L Immature Gran % (Auto) 0.2 Neut % (Auto) 66.4 Lymph % (Auto) 19.8 L Jennings % (Auto) 11.4 H Eos % (Auto) 1.7 Baso % (Auto) 0.5 Lymph # (Auto) 1.3 Jennings # (Auto) 0.8 Eos # (Auto) 0.1 Baso # (Auto) 0.0 Abs Immat Gran (auto) 0.01 Absolute Neuts (auto) 4.4 Absolute Nucleated RBC 0.000 Nucleated RBC % (auto) 0.0 PT Whole Blood PT 12.0 INR Whole Blood INR 1.0 APTT Sodium Potassium Chloride Carbon Dioxide Anion Gap BUN Creatinine Estim Creat Clear Calc Estimated GFR POC Glucose 96 Random Glucose Calcium Magnesium Total Bilirubin Direct Bilirubin AST ALT Alkaline Phosphatase Troponin I High Sens Total Protein Albumin Triglycerides Cholesterol LDL Cholesterol, Calc HDL Cholesterol COVID-19 ([facility]) COVID-19 Clin Com 04/08/20 04/08/20 04/08/20 06:40 06:40 06:40 WBC RBC Hgb Hct MCV MCH MCHC RDW Plt Count MPV Immature Gran % (Auto) Neut % (Auto) Lymph % (Auto) Jennings % (Auto) Eos % (Auto) Baso % (Auto) Lymph # (Auto) Jennings # (Auto) Eos # (Auto) Baso # (Auto) Abs Immat Gran (auto) Absolute Neuts (auto) Absolute Nucleated RBC Nucleated RBC % (auto) PT 10.5 L Whole Blood PT INR 0.9 Whole Blood INR APTT 33.2 Sodium 143 Potassium 4.7 Chloride 109 H Carbon Dioxide 26 Anion Gap 13 BUN 16 Creatinine 0.99 Estim Creat Clear Calc 62.0 Estimated GFR > 60 POC Glucose Random Glucose 105 Calcium 9.1 Magnesium 2.3 Total Bilirubin 0.7 Direct Bilirubin 0.2 AST 12 ALT 8 Alkaline Phosphatase 66 Troponin I High Sens < 3.5 Total Protein 7.0 Albumin 4.6 Triglycerides Cholesterol LDL Cholesterol, Calc HDL Cholesterol COVID-19 ([facility]) COVID-19 Clin Com 04/08/20 04/08/20 04/09/20 06:42 15:52 05:26 WBC 6.2 RBC 5.11 Hgb 15.7 Hct 47.9 MCV 93.7 MCH 30.7 MCHC 32.8 RDW 12.6 Plt Count 248 MPV 9.3 L Immature Gran % (Auto) 0.3 Neut % (Auto) 65.7 Lymph % (Auto) 19.7 L Jennings % (Auto) 11.3 H Eos % (Auto) 2.4 Baso % (Auto) 0.6 Lymph # (Auto) 1.2 Jennings # (Auto) 0.7 Eos # (Auto) 0.2 Baso # (Auto) 0.0 Abs Immat Gran (auto) 0.02 Absolute Neuts (auto) 4.1 Absolute Nucleated RBC 0.000 Nucleated RBC % (auto) 0.0 PT Whole Blood PT INR Whole Blood INR APTT Sodium Potassium Chloride Carbon Dioxide Anion Gap BUN Creatinine Estim Creat Clear Calc Estimated GFR POC Glucose 91 Random Glucose Calcium Magnesium Total Bilirubin Direct Bilirubin AST ALT Alkaline Phosphatase Troponin I High Sens Total Protein Albumin Triglycerides Cholesterol LDL Cholesterol, Calc HDL Cholesterol COVID-19 ([facility]) Negative COVID-19 Clin Com See Note 04/09/20 05:26 WBC RBC Hgb Hct MCV MCH MCHC RDW Plt Count MPV Immature Gran % (Auto) Neut % (Auto) Lymph % (Auto) Jennings % (Auto) Eos % (Auto) Baso % (Auto) Lymph # (Auto) Jennings # (Auto) Eos # (Auto) Baso # (Auto) Abs Immat Gran (auto) Absolute Neuts (auto) Absolute Nucleated RBC Nucleated RBC % (auto) PT Whole Blood PT INR Whole Blood INR APTT Sodium 138 Potassium 3.9 Chloride 105 Carbon Dioxide 24 Anion Gap 13 BUN 13 Creatinine 0.92 Estim Creat Clear Calc 66.7 Estimated GFR > 60 POC Glucose Random Glucose 84 Calcium 8.8 Magnesium Total Bilirubin Direct Bilirubin AST ALT Alkaline Phosphatase Troponin I High Sens Total Protein Albumin Triglycerides 67 Cholesterol 160 LDL Cholesterol, Calc 93 HDL Cholesterol 54 COVID-19 ([facility]) COVID-19 Clin Com Discharge Plan Discharge Patient Disposition: Home Health Service Referrals: [facility] [Outside] Physician,None [Primary Care Provider] - Discharge Medications: New aspirin 81 mg Tablet,Delayed Release (Dr/Ec) 81 mg PO DAILY Qty: 30 RF: 0 atorvastatin [Lipitor] 20 mg tablet 20 mg PO BEDTIME Qty: 30 RF: 0 clopidogrel [Plavix] 75 mg tablet 75 mg PO DAILY Qty: 30 RF: 0 Discharge Orders: Discharge Order (Routine); Ordered 04/09/20 Ordered By: Pauline Thao Diet: low fat, low cholesterol Activity on Discharge: As tolerated Stand Alone Forms: Patient Portal Discharge page Care Plan Goals: Abstain from smoking, close outpatient follow-up with primary care physician, take aspirin and Plavix for 1 month and then stop Plavix and take aspirin every day Health Concerns: Multiple CVA Plan of Treatment: Outpatient follow-up with primary care physician and outpatient cardiology referral for Holter monitor
== END 2020-04-09 15:51 | disposition home health service (06) | DRG 65 ==
LOC: HO.ED 09:00 → HO.EDOVER 10:29 → HO.IMC 14:52
PROVIDERS: Nurse Practitioner Acute Care; Admitting Provider Hospitalist; Emergency Provider Emergency Medicine; Visit Provider Hospitalist
DX: I63.511 Cerebral infarction due to unspecified occlusion or stenosis of right middle cerebral artery (principal); G81.94 Hemiplegia, unspecified affecting left nondominant side; F17.210 Nicotine dependence, cigarettes, uncomplicated; Z71.6 Tobacco abuse counseling; Z20.822 Contact with and (suspected) exposure to COVID-19; R29.711 NIHSS score 11
CPT/HCPCS: 29125; 36415; 70450; 70496; 70498; 70551; 71045; 80048; 80061; 80076; 82947; 83735; 84484; 85025; 85610; 85730; 87635; 93005; 93306; 96360; 97110; 97116; 97162; 97166; 97760; 99285; J1650; Q9967

== ENCOUNTER 2020-04-23 09:53 | Outpatient (REF) | payer MEDICARE, MEDICAID, SELFPAY ==
--- NOTE | ~2020-04-23 | US_ITS ---
EXAMINATION: US EXTRACRANIAL CAROTID DUPLEX, BILATERAL CLINICAL INFORMATION: Cerebral infarction. COMPARISON: None. TECHNIQUE: Real-time ultrasound and Doppler techniques (integrating B-mode 2-D vascular images, Doppler spectral analysis and color-flow Doppler imaging) were utilized to interrogate the extracranial carotid arteries, the vertebral arteries and proximal subclavian arteries bilaterally. The degree of stenosis is determined by criteria similar to NASCET. FINDINGS: Right Side: 1. There is hard atherosclerotic plaque seen in the bifurcation/proximal ICA region. 2. The common carotid artery PSV proximally is 115 cm/s and distally 101 cm/s. 3. The proximal internal carotid artery velocities are 131 cm/s systolic and 29.2 cm/s diastolic. 4. The proximal external carotid artery PSV is an 38 cm/s. 5. The vertebral artery shows antegrade flow. 6. The subclavian artery waveforms are normal. Left Side: 1. There is hard atherosclerotic plaque seen in the bifurcation/proximal ICA region. 2. The common carotid artery PSV proximally is 129 cm/s and distally 87.4 cm/s. 3. The proximal internal carotid artery velocities are 101 cm/s systolic and 24.4 cm/s diastolic. 4. The proximal external carotid artery PSV is 114 cm/s. 5. The vertebral artery shows antegrade flow. 6. The subclavian artery waveforms are normal. US/US carotid duplex BI IMPRESSION: 1. RIGHT: 50-79% range stenosis right internal carotid artery. 2. LEFT: No hemodynamically significant stenosis in the left carotid artery. 3. Normal antegrade flow seen in both vertebral arteries.
== END 2020-04-23 09:54 | disposition home or self-care (01) ==
LOC: HO.US 09:53
PROVIDERS: PCP Internal Medicine; Visit Provider Internal Medicine
DX: I65.21 Occlusion and stenosis of right carotid artery (principal)
CPT/HCPCS: 93880

== ENCOUNTER 2020-05-21 11:29 | Outpatient (REF) | payer MEDICARE, OTHER, SELFPAY ==
[2020-05-21 12:28] LABS: MANUAL DIFF FLAG NO
[2020-05-21 12:37] LABS: Basophils Percent Auto 0.7 % (0-2); Eosinophils Absolute Auto 0.1 X10*3/uL (0.0-0.4); Eosinophils Percent Auto 2.3 % (0-4); Hematocrit 46.4 % (42-52); Hemoglobin 15.4 g/dl (14.0-18.0); Imm Gran Abs Auto 0.01 X10*3/uL (0.00-0.03); Imm Gran Pct Auto 0.2 % (0.0-0.4); Lymphocytes Absolute Auto 1.1 X10*3/uL (1.2-4.9); Lymphocytes Percent Auto 18.7 % (20-40); Mean Corpuscular HGB Conc 33.2 g/dl (31.0-36.0); Mean Corpuscular Hemoglobin 30.8 pg (27.0-33.0); Mean Corpuscular Volume 92.8 fL (80-98); Mean Platelet Volume 9.1 fL (9.4-12.4); Monocytes Absolute Auto 0.6 X10*3/uL (0.1-1.2); Monocytes Percent Auto 10.2 % (2-11); Neutrophils Absolute Auto 3.9 X10*3/uL (2.0-8.3); Neutrophils Percent Auto 67.9 % (45-73); Platelet Count 244 X10*3/uL (160-400); Red Cell Distribution Width 12.6 % (11.0-16.0); White Blood Count 5.7 X10*3/uL (4.8-10.8)
[2020-05-21 13:05] LABS: Alanine Aminotransferase 11 U/L (0-40); Albumin Level 4.4 g/dL (3.5-5.0); Alkaline Phosphatase 66 U/L (39-117); Anion Gap 12 (12-20); Aspartate Amino Transferase 11 U/L (5-37); Bilirubin Total 0.9 mg/dL (0.0-1.0); Blood Urea Nitrogen 15 mg/dL (9-16); Calcium 9.1 mg/dL (8.4-10.2); Carbon Dioxide 28 mmol/L (22-29); Chloride 105 mmol/L (96-108); Cholesterol 117 mg/dL; Estimated Glomerular Filt Rate > 60; Glucose Fasting 92 mg/dL (60-99); HDL Cholesterol 54 mg/dL; LDL Cholesterol Calculated 56 mg/dl; Potassium 4.4 mmol/L (3.3-5.1); Sodium 141 mmol/L (135-145); Total Protein 6.8 g/dL (6.5-8.0); Triglycerides 38 mg/dL
== END 2020-05-21 11:30 | disposition home or self-care (01) ==
LOC: HO.LAB 11:29
PROVIDERS: PCP Internal Medicine; Visit Provider Internal Medicine
DX: Z00.00 Encounter for general adult medical examination without abnormal findings (principal); E11.9 Type 2 diabetes mellitus without complications
CPT/HCPCS: 36415; 80053; 80061; 85025

== ENCOUNTER 2020-10-13 10:27 | Outpatient (REF) | payer MEDICARE, OTHER, SELFPAY ==
[2020-10-13 12:40] LABS: Cholesterol 114 mg/dL; HDL Cholesterol 31 mg/dL; LDL Cholesterol Calculated 64 mg/dl; Triglycerides 98 mg/dL
== END 2020-10-13 10:28 | disposition home or self-care (01) ==
LOC: HO.LAB 10:27
PROVIDERS: PCP Internal Medicine; Visit Provider Internal Medicine
DX: Z20.822 Contact with and (suspected) exposure to COVID-19 (principal); R09.89 Other specified symptoms and signs involving the circulatory and respiratory systems; E11.9 Type 2 diabetes mellitus without complications
CPT/HCPCS: 80061; U0003; U0005

== ENCOUNTER 2021-11-04 11:04 | Outpatient (REF) | payer MEDICARE, OTHER, SELFPAY ==
[2021-11-04 13:28] LABS: Urine Cytology See Pathology rpt
== END 2021-11-04 11:05 | disposition home or self-care (01) ==
LOC: HO.LAB 11:04
PROVIDERS: PCP Internal Medicine; Visit Provider Internal Medicine
DX: R31.0 Gross hematuria (principal)
CPT/HCPCS: 87086; 88112

== ENCOUNTER 2022-12-03 11:24 | Outpatient (AMB) | payer MEDICARE, MEDICAID, SELFPAY ==
--- NOTE | 2022-12-03 11:27 | MHC.PC.OV ---
Vital Signs 12/03/22 11:28 Height 5 ft 10 in Weight 172 lb BMI 24.7 BP 134/80 Blood Pressure Location Lt brachial Position Sitting Pulse 73 Pulse Source Pulse Oximeter Pulse Oximetry (%) 98 Oxygen Delivery Method Room Air Intake Visit Reasons: F/u See bulletin board Allergies Penicillins Allergy (Unknown, Verified 12/03/22 11:28) Unknown Medication List - Last Reconciled 12/03/22 by Tello Minor MD aspirin 81 mg PO DAILY atorvastatin (Lipitor) 20 mg PO BEDTIME clopidogrel (Plavix) 75 mg PO DAILY Tobacco use date assessed: 12/03/22 Fall risk assessment: No Falls in past year Last assessed Fall Risk: 12/03/22 Dental Screening Dental Screen Date: 12/03/22 Did you have a dental visit in the last 12 months?: Yes Did you have a dental problem in the last 6 months where you did not have access to dental care?: No Was dental information given to patient?: Patient has dentist HPI F/u See bulletin board HPI Details hyperlipidemia; stopped rx a year ago PFSH Medical History Hyperlipidemia CVA (cerebral vascular accident) Cerebral aneurysm No known health problems Surgical History No history of previous surgery Family History Mother No problems noted. Other Stroke Social History Household Members: Family Housing: House Do you presently have visiting nurse or other home services: No Alcohol intake: never Patient Tobacco Use Status: Current everyday Tobacco user Tobacco use type: Cigarette Cigarettes Per Day: 8 Years Smoked: 55 e-Cigarette/Vaping Use: Never Used Second Hand Smoke Exposure: Yes service: No Current occupational status: retired Cognitive needs: No Hearing needs: No Vision needs: Yes Questionnaire PHQ-9 Over the last 2 weeks, how often have you been bothered by any of the following problems? 1. Little interest or pleasure in doing things: not at all 2. Feeling down, depressed, or hopeless: not at all 3. Trouble falling or staying asleep, or sleeping too much: not at all 4. Feeling tired or having little energy: not at all 5. Poor appetite or overeating: not at all 6. Feeling bad about yourself - or that you are a failure or have let yourself or your family down: not at all 7. Trouble concentrating on things, such as reading the newspaper or watching television: not at all 8. Moving or speaking so slowly that other people could have noticed. Or the opposite - being so fidgety or restless that you have been moving around a lot more than usual: not at all 9. Thoughts that you would be better off or of hurting yourself in some way: not at all Total score: 0 Depression Screening Interpretation: Negative 09846 - PHQ-9 Billing: Yes Source: Developed by Drs. Alban Avalos, Arleen Solitario, Kenroy Mosher and colleagues, with an educational sudarshan from [employer]. Thrive Questionnaire Date Thrive assessed: 12/03/22 I am a: Patient What is your living situation today?: I have a steady place to live Within the past 12 months, did the food you bought not last and you didn't have the money to get more?: Never true Within the past 12 months, did you worry whether your food would run out before you got money to buy more?: Never true Do you have trouble paying for medicines?: No Do you have trouble getting transportation to medical appointments?: No Do you have trouble paying your heating and electricity bill?: No Do you have trouble taking care of your child, family member or friend?: No Do you have trouble with day-to-day activities such as bathing, preparing meals, shopping, managing finances, etc.?: No Are you currently unemployed and looking for a job?: No Are you interested in more education?: No Please select the resources that you would like help with: None NAGI-7 AMB Questionnaire NAGI-7 Date NAGI - 7 assessed: 12/03/22 Feeling nervous, anxious, or on edge: 0 = Not at all Not being able to stop or control worryin = Not at all Worrying too much about different things: 0 = Not at all Trouble relaxin = Not at all Being so restless that it is hard to sit still: 0 = Not at all Becoming easily annoyed or irritable: 0 = Not at all Feeling afraid as if something awful might happen: 0 = Not at all Total NAGI-7 score (0-4 normal; 5-9 mild; 10-14 moderate; 15-21 severe): 0 Source: Developed by Drs. Alban Avalos, Arleen Solitario, Kenroy Mosher and colleagues, with an educational sudarshan from [employer]. NAGI-7 Assessment Billing NAGI-7 Assessment Tool: NAGI-7 Assessment 57857 Review of Systems Const Denies chills, Denies headache(s) and Denies weight loss ENT Denies headache(s) Card Denies chest pain, Denies syncope, Denies irregular heart rhythm and Denies dyspnea Resp Denies chest congestion, Denies cough and Denies dyspnea GI Denies abdominal pain, Denies change in stool character, Denies nausea and Denies vomiting Musc Denies deformity and Denies joint swelling Neuro Denies syncope and Denies headache(s) Physical exam (Primary Care) Vital Signs: Last Vital Signs Pulse 73 12/03/22 11:28 BP 134/80 12/03/22 11:28 Pulse Ox 98 12/03/22 11:28 Oxygen Delivery Method Room Air 12/03/22 11:28 BMI result Body Mass Index 24.7 Tobacco/Smoking Status: Tobacco use Status Tobacco use date assessed 12/03/22 12/03/22 11:32 Patient Tobacco Use Status Current everyday Tobacco 12/03/22 11:32 Tobacco use type Cigarette 12/03/22 11:32 e-Cigarette/Vaping Use Never Used 12/03/22 11:32 PHQ-9: PHQ-9 Score PHQ-9: Total score 0 12/03/22 11:32 Depression Screening Interpretation: Negative Thrive Assessment: Date of Thrive Assessment Date Thrive assessed 12/03/22 12/03/22 11:32 Const General: cooperative, comfortable, no acute distress and alert Neck Neck: Yes no lymphadenopathy Thyroid: Thyroid normal Resp Effort & Inspection: normal respiratory effort Auscultation: clear to auscultation bilaterally Percussion: percussion normal Cardio Jugular venous distension: no JVD Palpation: normal PMI Rate: regular rate Rhythm: regular rhythm Heart sounds: S1 normal heart sound present and S2 normal heart sound present GI Inspection: Yes normal to inspection Palpation (GI): No hepatosplenomegaly present Skin General skin exam: no rashes or lesions noted Extrem General: Yes no clubbing, cyanosis or edema Assessment and Plan Assessment & Plan (1) Hyperlipidemia: Code(s): E78.5 - Hyperlipidemia, unspecified Plan: labs Orders: Orders Lipid Panel Today E78.5 - Hyperlipidemia, unspecified Complete Blood Count Auto Diff Today D64.9 - Anemia, unspecified Comprehensive [place]. Panel Fast Today N28.9 - Disorder of kidney and ureter, unspecified Referrals Cologuard Test Z12.11 - Encounter for screening for malignant neoplasm of colon, Z12.12 - Encounter for screening for malignant neoplasm of rectum Cologuard Test Z12.11 - Encounter for screening for malignant neoplasm of colon, Z12.12 - Encounter for screening for malignant neoplasm of rectum Coding Level of Care Code Est Pt Level 3 (77551) Diagnoses Hyperlipidemia E78.5 Additional Codes NAGI-7 Assessment Billing - NAGI-7 Assessment Tool: NAGI-7 Assessment [id number] ([id number])
[2022-12-03 11:28] VITALS: BP 134/80; PULSE 73; O2SAT 98; BMI 24.7
== END 2022-12-03 11:42 | disposition home or self-care (01) ==
PROVIDERS: PCP Internal Medicine; Visit Provider Internal Medicine
DX: E78.5 Hyperlipidemia, unspecified (principal)
CPT/HCPCS: 99213

== ENCOUNTER 2022-12-16 11:04 | Outpatient (REF) | payer MEDICARE, OTHER, SELFPAY ==
[2022-12-16 11:14] LABS: MANUAL DIFF FLAG NO
[2022-12-16 11:23] LABS: Basophils Absolute Auto 0.1 X10*3/uL (0.0-0.2); Basophils Percent Auto 0.9 % (0-2); Eosinophils Absolute Auto 0.3 X10*3/uL (0.0-0.4); Eosinophils Percent Auto 5.2 % (0-4); Hemoglobin 15.7 g/dl (14.0-18.0); Imm Gran Abs Auto 0.01 X10*3/uL (0.00-0.03); Imm Gran Pct Auto 0.2 % (0.0-0.4); Lymphocytes Absolute Auto 1.2 X10*3/uL (1.2-4.9); Mean Corpuscular HGB Conc 33.4 g/dl (31.0-36.0); Mean Corpuscular Hemoglobin 30.5 pg (27.0-33.0); Mean Corpuscular Volume 91.4 fL (80.0-98.0); Mean Platelet Volume 9.2 fL (9.4-12.4); Monocytes Absolute Auto 0.8 X10*3/uL (0.1-1.2); Monocytes Percent Auto 13.9 % (2-11); Neutrophils Absolute Auto 3.3 x10*3/uL (2.0-8.3); Neutrophils Percent Auto 58.8 % (45-73); Platelet Count 200 X10*3/uL (160-400); Red Blood Count 5.14 X10*6/uL (4.60-5.80); Red Cell Distribution Width 13.4 % (11.0-16.0); White Blood Count 5.6 X10*3/uL (4.8-10.8)
[2022-12-16 12:28] LABS: Alanine Aminotransferase 6 U/L (0-40); Albumin Level 4.3 g/dL (3.5-5.0); Alkaline Phosphatase 66 U/L (39-117); Anion Gap 15 (12-20); Aspartate Amino Transferase 11 U/L (5-37); Bilirubin Total 1.3 mg/dL (0.0-1.0); Blood Urea Nitrogen 14 mg/dL (9-16); Calcium 9.2 mg/dL (8.4-10.2); Carbon Dioxide 26 mmol/L (22-29); Chloride 104 mmol/L (96-108); Cholesterol 159 mg/dL (<200); Estimated Glomerular Filt Rate > 60; Glucose Fasting 85 mg/dL (60-99); HDL Cholesterol 53 mg/dL (>40); LDL Cholesterol Calculated 96 mg/dL (<100); Potassium 3.8 mmol/L (3.3-5.1); Sodium 141 mmol/L (135-145); Triglycerides 52 mg/dL (<150)
== END 2022-12-16 11:05 | disposition home or self-care (01) ==
LOC: HO.LAB 11:04
PROVIDERS: PCP Internal Medicine; Visit Provider Internal Medicine
DX: E78.5 Hyperlipidemia, unspecified (principal); N28.9 Disorder of kidney and ureter, unspecified; D64.9 Anemia, unspecified
CPT/HCPCS: 36415; 80053; 80061; 85025

== ENCOUNTER 2023-03-16 08:33 | Outpatient (AMB) | payer MEDICARE, MEDICAID, SELFPAY ==
[2023-03-16 08:36] VITALS: BP 132/66; PULSE 82; O2SAT 98; BMI 25.8
--- NOTE | 2023-03-16 08:36 | MHC.PC.OV ---
Vital Signs 03/16/23 08:36 Height 5 ft 10 in Weight 180 lb BMI 25.8 BP 132/66 Blood Pressure Location Lt brachial Position Sitting Pulse 82 Pulse Source Pulse Oximeter Pulse Oximetry (%) 98 Oxygen Delivery Method Room Air Intake Visit Reasons: 3 Months F/U Allergies Penicillins Allergy (Unknown, Verified 03/16/23 08:39) Unknown Medication List - Last Reconciled 03/16/23 by Tello Minor MD aspirin 81 mg PO DAILY atorvastatin (Lipitor) 20 mg PO BEDTIME clopidogrel (Plavix) 75 mg PO DAILY Tobacco use date assessed: 12/03/22 Fall risk assessment: No Falls in past year Last assessed Fall Risk: 03/16/23 Dental Screening Dental Screen Date: 03/16/23 Did you have a dental visit in the last 12 months?: No Did you have a dental problem in the last 6 months where you did not have access to dental care?: No Was dental information given to patient?: Patient has dentist HPI 3 Months F/U HPI Details hyperlipidemia on no rx; chol has increased to 159 PFSH Medical History Hyperlipidemia CVA (cerebral vascular accident) Cerebral aneurysm No known health problems Surgical History No history of previous surgery Family History Mother No problems noted. Other Stroke Social History Household Members: Family Housing: House Do you presently have visiting nurse or other home services: No Alcohol intake: never Patient Tobacco Use Status: Current everyday Tobacco user Tobacco use type: Cigarette Cigarettes Per Day: 8 Years Smoked: 55 e-Cigarette/Vaping Use: Never Used Second Hand Smoke Exposure: Yes service: No Current occupational status: retired Cognitive needs: No Hearing needs: No Vision needs: Yes Questionnaire PHQ-9 Over the last 2 weeks, how often have you been bothered by any of the following problems? 1. Little interest or pleasure in doing things: not at all 2. Feeling down, depressed, or hopeless: not at all 3. Trouble falling or staying asleep, or sleeping too much: not at all 4. Feeling tired or having little energy: not at all 5. Poor appetite or overeating: not at all 6. Feeling bad about yourself - or that you are a failure or have let yourself or your family down: not at all 7. Trouble concentrating on things, such as reading the newspaper or watching television: not at all 8. Moving or speaking so slowly that other people could have noticed. Or the opposite - being so fidgety or restless that you have been moving around a lot more than usual: not at all 9. Thoughts that you would be better off or of hurting yourself in some way: not at all Total score: 0 Depression Screening Interpretation: Negative Depression Screening Done: Yes 25877 - PHQ-9 Billing: Yes Source: Developed by Drs. Alban Avalos, Arleen Solitario, Kenroy Mosher and colleagues, with an educational sudarshan from [employer]. Thrive Questionnaire Date Thrive assessed: 03/16/23 I am a: Patient What is your living situation today?: I have a steady place to live Within the past 12 months, did the food you bought not last and you didn't have the money to get more?: Never true Within the past 12 months, did you worry whether your food would run out before you got money to buy more?: Never true Do you have trouble paying for medicines?: No Do you have trouble getting transportation to medical appointments?: No Do you have trouble paying your heating and electricity bill?: No Do you have trouble taking care of your child, family member or friend?: No Do you have trouble with day-to-day activities such as bathing, preparing meals, shopping, managing finances, etc.?: No Are you currently unemployed and looking for a job?: No Are you interested in more education?: No NAGI-7 AMB Questionnaire NAGI-7 Date NAGI - 7 assessed: 03/16/23 Feeling nervous, anxious, or on edge: 0 = Not at all Not being able to stop or control worryin = Not at all Worrying too much about different things: 0 = Not at all Trouble relaxin = Not at all Being so restless that it is hard to sit still: 0 = Not at all Becoming easily annoyed or irritable: 0 = Not at all Feeling afraid as if something awful might happen: 0 = Not at all Total NAGI-7 score (0-4 normal; 5-9 mild; 10-14 moderate; 15-21 severe): 0 Source: Developed by Drs. Alban Avalos, Arleen Solitario, Kenroy Mosher and colleagues, with an educational sudarshan from [employer]. Review of Systems Const Denies chills, Denies headache(s) and Denies weight loss ENT Denies headache(s) Card Denies chest pain, Denies syncope, Denies irregular heart rhythm and Denies dyspnea Resp Denies chest congestion, Denies cough and Denies dyspnea GI Denies abdominal pain, Denies change in stool character, Denies nausea and Denies vomiting Musc Denies deformity and Denies joint swelling Neuro Denies syncope and Denies headache(s) Physical exam (Primary Care) Vital Signs: Last Vital Signs Pulse 82 03/16/23 08:36 BP 132/66 03/16/23 08:36 Pulse Ox 98 03/16/23 08:36 Oxygen Delivery Method Room Air 03/16/23 08:36 BMI result Body Mass Index 25.8 Tobacco/Smoking Status: Tobacco use Status Tobacco use date assessed 12/03/22 03/16/23 08:42 Patient Tobacco Use Status Current everyday Tobacco 03/16/23 08:42 Tobacco use type Cigarette 03/16/23 08:42 e-Cigarette/Vaping Use Never Used 03/16/23 08:42 PHQ-9: PHQ-9 Score PHQ-9: Total score 0 03/16/23 08:42 Depression Screening Interpretation: Negative Thrive Assessment: Date of Thrive Assessment Date Thrive assessed 03/16/23 03/16/23 08:42 Const General: cooperative, comfortable, no acute distress and alert Neck Neck: Yes no lymphadenopathy Thyroid: Thyroid normal Resp Effort & Inspection: normal respiratory effort Auscultation: clear to auscultation bilaterally Percussion: percussion normal Cardio Jugular venous distension: no JVD Palpation: normal PMI Rate: regular rate Rhythm: regular rhythm Heart sounds: S1 normal heart sound present and S2 normal heart sound present GI Inspection: Yes normal to inspection Palpation (GI): No hepatosplenomegaly present Skin General skin exam: no rashes or lesions noted Extrem General: Yes no clubbing, cyanosis or edema Assessment and Plan Assessment & Plan (1) Hyperlipidemia: Code(s): E78.5 - Hyperlipidemia, unspecified Plan: stable; f/u 3-4 months Orders: Orders Lipid Panel Today E78.5 - Hyperlipidemia, unspecified Coding Level of Care Code Est Pt Level 3 (79452) Diagnoses Hyperlipidemia E78.5
== END 2023-03-16 08:49 | disposition home or self-care (01) ==
PROVIDERS: PCP Internal Medicine; Visit Provider Internal Medicine
DX: E78.5 Hyperlipidemia, unspecified (principal)
CPT/HCPCS: 99213

== ENCOUNTER 2023-05-27 11:08 | Outpatient (REF) | payer MEDICARE, OTHER, SELFPAY ==
[2023-05-27 13:00] LABS: Cholesterol 149 mg/dL (<200); HDL Cholesterol 49 mg/dL (>40); LDL Cholesterol Calculated 89 mg/dL (<100); Triglycerides 55 mg/dL (<150)
== END 2023-05-27 11:09 | disposition home or self-care (01) ==
LOC: HO.LAB 11:08
PROVIDERS: PCP Internal Medicine; Visit Provider Internal Medicine
DX: E78.5 Hyperlipidemia, unspecified (principal)
CPT/HCPCS: 36415; 80061

== ENCOUNTER 2023-06-15 09:39 | Outpatient (AMB) | payer MEDICARE, MEDICAID, SELFPAY ==
--- NOTE | 2023-06-15 09:40 | MHC.PC.OV ---
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 Other Stroke Social History Household Members: Family Housing: House Do you presently have visiting nurse or other home services: No Alcohol intake: never Patient Tobacco Use Status: Current everyday Tobacco user Tobacco use type: Cigarette Cigarettes Per Day: 8 Years Smoked: 55 e-Cigarette/Vaping Use: Never Used Second Hand Smoke Exposure: Yes service: No Current occupational status: retired Cognitive needs: No Hearing needs: No Vision needs: Yes (glasses) Questionnaire Thrive Questionnaire Date Thrive assessed: 03/16/23 AUDIT C Alcohol Use Questionnaire (AUDIT-C) 1. How often do you have a drink containing alcohol?: Never 3. How often do you have six or more drinks on one occasion?: Never Total Score: 0 Score Reviewed/Action Taken: Yes NAGI-7 AMB Questionnaire NAGI-7 Date NAGI - 7 assessed: 03/16/23 Source: Developed by Drs. Alban Avalos, Arleen Solitario, Kenroy Mosher and colleagues, with an educational sudarshan from [employer]. Review of Systems Const Denies chills, Denies headache(s) and Denies weight loss ENT Denies headache(s) Card Denies chest pain, Denies syncope, Denies irregular heart rhythm and Denies dyspnea Resp Denies chest congestion, Denies cough and Denies dyspnea GI Denies abdominal pain, Denies change in stool character, Denies nausea and Denies vomiting Musc Denies deformity and Denies joint swelling Neuro Denies syncope and Denies headache(s) Physical exam (Primary Care) Vital Signs: Last Vital Signs Pulse 70 06/15/23 09:41 BP 134/74 06/15/23 09:41 Pulse Ox 94 06/15/23 09:41 Oxygen Delivery Method Room Air 06/15/23 09:41 BMI result Body Mass Index 25.7 Tobacco/Smoking Status: Tobacco use Status Tobacco use date assessed 06/15/23 06/15/23 09:42 Patient Tobacco Use Status Current everyday Tobacco 06/15/23 09:42 Tobacco use type Cigarette 06/15/23 09:42 e-Cigarette/Vaping Use Never Used 06/15/23 09:42 Thrive Assessment: Date of Thrive Assessment Date Thrive assessed 03/16/23 06/15/23 09:42 Const General: cooperative, comfortable, no acute distress and alert Neck Neck: Yes no lymphadenopathy Thyroid: Thyroid normal Resp Effort & Inspection: normal respiratory effort Auscultation: clear to auscultation bilaterally Percussion: percussion normal Cardio Jugular venous distension: no JVD Palpation: normal PMI Rate: regular rate Rhythm: regular rhythm Heart sounds: S1 normal heart sound present and S2 normal heart sound present GI Inspection: Yes normal to inspection Palpation (GI): No hepatosplenomegaly present Skin General skin exam: no rashes or lesions noted Extrem General: Yes no clubbing, cyanosis or edema Assessment and Plan Assessment & Plan (1) Cerebrovascular accident: Code(s): I63.9 - Cerebral infarction, unspecified Qualifiers: CVA mechanism: unspecified Qualified Code(s): I63.9 - Cerebral infarction, unspecified Plan: stable; to see gi re positive cologard test Coding Level of Care Code Est Pt Level 3 (80953) Diagnoses Cerebrovascular accident I63.9 CVA mechanism: unspecified
[2023-06-15 09:41] VITALS: BP 134/74; PULSE 70; O2SAT 94; BMI 25.7
== END 2023-06-15 10:07 | disposition home or self-care (01) ==
PROVIDERS: PCP Internal Medicine; Visit Provider Internal Medicine
DX: I69.952 Hemiplegia and hemiparesis following unspecified cerebrovascular disease affecting left dominant side (principal)
CPT/HCPCS: 99213

== ENCOUNTER 2023-08-22 11:33 | Day surgery (SDC) | payer MEDICARE, OTHER, SELFPAY ==
--- NOTE | 2023-08-18 13:56 | HO.ANESPROP2 ---
Documented by User: Krupa Hall NP 08/18/23 13:59 HPI - Anesthesia Eval Consult details Narrative: 73yo M for Colonoscopy Hx CVA 2020 with LUE weakness [facility] Active Problems Active Problems: All Active Problems Positive colorectal cancer screening using Cologuard test (Acute) Gross hematuria (Acute) Cellulitis (Acute) Hyperlipidemia (Acute) CVA (cerebral vascular accident) (Acute) Multiple cerebral infarctions (Acute) Cerebrovascular accident (Acute) Past Medical History Medical History Hyperlipidemia CVA (cerebral vascular accident) Cerebral aneurysm Family History Family History Mother No problems noted. Other Stroke Surgical History Surgical History No history of previous surgery Social History Social History Household Members: Family Housing: House Do you presently have visiting nurse or other home services: No Alcohol intake: never Patient Tobacco Use Status: Current everyday Tobacco user Tobacco use type: Cigarette Cigarettes Per Day: 10 Years Smoked: 55 e-Cigarette/Vaping Use: Never Used Second Hand Smoke Exposure: Yes Use of substances other than those prescribed or required for medical reasons: No Are you DNR?: No Advance Directives: No Advance Directives Information Provided: Yes service: No Current occupational status: retired Cognitive needs: No Hearing needs: No Vision needs: Yes (glasses) Meds Allergies Allergy/AdvReac Type Severity Reaction Status Date / Time Penicillins Allergy Unknown Unknown Verified 03/16/23 08:39 Assessment and Plan Assessment Anesthesia Assessment: Chart Reviewed Documented by User: Vignesh Sandoval MD 08/22/23 14:08 PMFSH Past Medical History Medical History Hyperlipidemia CVA (cerebral vascular accident) Cerebral aneurysm Family History Family History Mother No problems noted. Other Stroke Family history of problems with anesthesia: No Surgical History Surgical History No history of previous surgery History of Problems with Anesthesia: No Social History Social History Household Members: Family Housing: House Do you presently have visiting nurse or other home services: No Alcohol intake: never Patient Tobacco Use Status: Current everyday Tobacco user Tobacco use type: Cigarette Cigarettes Per Day: 10 Years Smoked: 55 e-Cigarette/Vaping Use: Never Used Second Hand Smoke Exposure: Yes Use of substances other than those prescribed or required for medical reasons: No Are you DNR?: No Advance Directives: No Advance Directives Information Provided: Yes service: No Current occupational status: retired Cognitive needs: No Hearing needs: No Vision needs: Yes (glasses) Meds Allergies Allergy/AdvReac Type Severity Reaction Status Date / Time Penicillins Allergy Unknown Unknown Verified 03/16/23 08:39 Exam Airway Mallampati Class: II TM Dist: >3cm Neck ROM: Full Partial: Upper Loose/Missing/Broken Teeth: No Heart: rrr Lungs: cta Assessment and Plan Assessment Anesthesia Assessment: Anesthesia Plan Discussed and Smoking Cess. Discussed Final Anesthetic Review Family History of Problems with Anesthesia: No History of Problems with Anesthesia: No NPO: Yes ASA Class: III Final Preanesthetic Review: No Changes in Pt Med Stat, Meds/Allgs Chart Reviewed, Consent Obtained/Reviewed and Anes Risks/Benef Reviewed Patient Risk: Intermediate Procedure Risk: Intermediate Anesthetic Plan Anesthetic Plan: TIVA Disposition: Standard PACU
[2023-08-18 14:53] VITALS: BMI 25.7
--- OUTSIDE RECORDS SUMMARY | 2023-08-22 11:35 | XMS_ITS | Patient Health Record ---
Author Organization [facility] Address [address] [place] [address] Care Team Providers Care Senior Director Insight Name Role Phone Tello Minor MD Primary Care Provider Alban Harper [phone] ALLERGIES Allergen (clinical drug ingredient) Drug/Non Drug Allergy documented on EMR Reaction Allergy Type Onset Date Status Penicillin Unknown Drug Allergy Active REASON FOR REFERRAL No Information IMMUNIZATIONS Vaccine Route Administration Date Status Comme nts Influenza Unknown 08/10/2023 Refused SOCIAL HISTORY Tobacco Use: Social History Observation Description Date Details (start date - stop date) Current Smoker NA - NA Sex Assigned At : Social History Observation Description Sex Assigned At Unknown Tobacco Use/Smoking Question Answer Notes Patient is a current smoker Alcohol Screen Question Answer Notes Did you have a drink containing alcohol in the p ast year? No Points 0 Interpretation Negative PROBLEMS Problem Type ICD Code Onset Dates Problem Status W/U Status Risk SNOMED Code Notes Problem Positive colorectal cancer screening using Cologuard test (R19.5) Active confirmed Abnormal feces (681386081) VITAL SIGNS Temperature 98.6 degrees Fahrenheit 08/10/2023 Blood pressure diastolic 00 mm Hg 08/10/2023 Height 5 ft 10 in in 08/10/2023 Blood pressure systolic 000 mm Hg 08/10/2023 Weight 177 lb 6 oz lbs 08/10/2023 BMI 25.45 kg/m2 08/10/2023 Encounters Encounter Location Date Provider Diagnosis [facility] [address] [place], [place] [phone] 08/22/2023 [facility] [address] [place] [phone] 08/10/2023 Alban Gray Positive colorectal cancer screening using Cologuard test R19.5 [facility] [address] [place] [address] 04/06/2023 Alban Gray [facility] [address] [place] [address] 08/18/2023 Alban Gray ASSESSMENTS Encounter Date Diagnosis Assessment Notes Treatment Notes Treatment Clinical Notes 08/10/2023 Positive colorectal cancer screening using Cologuard test (ICD-10 - R19.5) PLAN OF TREATMENT Future Test Test Name Order Date COLONOSCOPY 08/10/2023 Next Appt Details Provider Name:Alban Gray , 08/22/2023 12:50:00 PM, [address] [place] [address] , [place], [place], [phone], Insurance Providers Payer Name Payer Address Payer Phone Subscriber Number Group Number Insured Name Patient Relationship to Insured Coverage Start Date Coverage End Date MEDICARE OF [place] [address] [place] [address] [phone] [id number] ANDREW JOHNSON Self - patient is the insured MEDICAID OF [facility] [address] [place] [address] [id number] ANDREW JOHNSON Self - patient is the insured MEDICAL (GENERAL) HISTORY Medical History History ICD Code 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
[2023-08-22 11:38] VITALS: BMI 24.4
[2023-08-22 11:59] VITALS: BP 139/104; PULSE 85; RESP 16; TEMP 36.2; O2SAT 96
[2023-08-22] MEDS: Lactated Ringers 1,000 ML 100 ML IVCONT (12:00)
[2023-08-22 15:41] VITALS: BP 167/93; PULSE 73; RESP 18; TEMP 36.2; O2SAT 97
[2023-08-22 15:58] VITALS: BP 167/95; PULSE 70; RESP 18; TEMP 36.2; O2SAT 94
--- NOTE | 2023-08-22 16:06 | PM.OP ---
Brief Operative Note Date of Service: 08/22/23 Pre-op diagnosis: + Cologuard test Post-op diagnosis: other (Colon polyps) Procedure: Colonoscopy to the cecum with cold snare polypectomy of TC polyp, hot snare polypectomies of TC polyp, polyp at 40cm, polyp at 20cm, and polyp at 15cm. 2 resolution clips applied to the TC hot snare polypectomy site and 1 Resolution clip applied to the polypectomy site at 20cm. Surgeon: Alban Gray MD Anesthesia: MAC Was an Supervisor Telephone Answering Service used for this Procedure?: No Estimated blood loss (mL): 2.0 Pathology: other (A. Transverse colon polyps B. Polyp at 40cm C. Polyp at 20cm D. Polyp at 15cm) Condition: stable Disposition: PACU
--- NOTE | 2023-08-23 02:12 | OP_ITS ---
DATE OF SERVICE: 08/22/2023 SURGEON: Alban Gray MD INDICATIONS: The patient presents for evaluation of a positive Cologuard test. Full consent has been obtained from him for this, including risks of bleeding and perforation. PREOPERATIVE DIAGNOSIS: Positive Cologuard test. POSTOPERATIVE DIAGNOSIS: PROCEDURE PERFORMED: Colonoscopy to the cecum with multiple hot snare polypectomies, one cold snare polypectomy, and placement of Resolution clips. ESTIMATED BLOOD LOSS: COMPLICATIONS: ANESTHESIA: Monitored anesthesia care. ASSISTANTS: SPECIMENS: POSTOPERATIVE DIAGNOSES: Positive Cologuard test, colon polyps, diverticulosis, internal and external hemorrhoids. DESCRIPTION OF PROCEDURE: The patient was placed in the left lateral decubitus position. The digital rectal exam revealed some external hemorrhoidal tissue, as well as some irritation of the perianal skin, but no sign of any fistula nor abscess. The Olympus video pediatric colonoscope was entered into the rectum and advanced easily to the cecum. Once in the cecum I did identify a normal-appearing cecal pouch with appendiceal orifice after a lot of irrigation and suctioning. Ultimately, I did obtain a good visualization of the cecum, which appeared normal. There was transillumination of light deep in the right lower quadrant. The scope was then slowly withdrawn, assessing all mucosal surfaces carefully. Preparation became very good throughout the colon after a lot of irrigation and suctioning. In the transverse colon, was an approximately 5 or 6 mm polyp, which was removed by cold snare polypectomy and recovered by suction. The polypectomy site appeared clean, without any sign of residual polyp nor bleeding. Just distal to this, was an approximately 10 to 12 mm polyp on a short stalk, which was removed by hot snare polypectomy and then recovered by suction. There was some oozing at the polypectomy site from residual polyp tissue, which was initially treated with further removal by snare polypectomy and then cauterization with the tip of the snare. Ultimately, there was good hemostasis obtained. I did place 2 Resolution clips onto the polypectomy site with good deployment and good hemostasis. At 40 cm, was an approximately 15 mm polyp on a short stalk, which was removed by hot snare polypectomy and recovered by withdrawing it on the tip of the scope. The scope was advanced back to the polypectomy site which appeared clean, without any sign of residual polyp nor bleeding. At 20 cm, was an approximately 15 mm polyp on a short stalk, which was removed by hot snare polypectomy and recovered by withdrawing it on the tip of the scope. The scope was advanced back to the polypectomy site. There was some oozing at this site, which was again treated with the tip of the snare with good hemostasis obtained. A single Resolution clip was applied to the polypectomy site with good deployment and good hemostasis. At 15 cm, was an approximately 12 mm polyp, which was removed by hot snare polypectomy and recovered by suction. The polypectomy site appeared clean, without any sign of residual polyp nor bleeding. There was a mild amount of sigmoid diverticulosis. In the rectum, the scope was retroflexed visualizing internal hemorrhoids, but no other pathology. The rectal mucosa appeared normal. The scope was straightened and withdrawn from the patient. He tolerated the procedure well and was returned to the recovery area in stable condition. IMPRESSION: 1. Colon polyps. 2. Diverticulosis. 3. Internal hemorrhoids. 4. External hemorrhoids. PLAN: The results of the pathology will be checked. If all these are just tubular adenomas, but without any worrisome changes, then I would recommend a repeat colonoscopy within 2 to 3 years for further followup. He was advised not to use any aspirin and NSAIDs for 2 weeks. If things are stable, he will see me on a p.r.n. basis. This has been discussed with the patient and his son. MD LENIN Thrasher/RICHI / [id number] MTDD
== END 2023-08-22 16:40 | disposition home or self-care (01) ==
PROVIDERS: PCP Internal Medicine; Visit Provider Internal Medicine
PROC: 0DJD8ZZ Inspection of Lower Intestinal Tract, Via Natural or Artificial Opening Endoscopic (ICD-10-PCS; CPT 45378; principal; 2023-08-22 13:30)
DX: R19.5 Other fecal abnormalities (principal); D12.3 Benign neoplasm of transverse colon; D12.6 Benign neoplasm of colon, unspecified; K63.5 Polyp of colon; K57.30 Diverticulosis of large intestine without perforation or abscess without bleeding; K64.8 Other hemorrhoids; K64.4 Residual hemorrhoidal skin tags
CPT/HCPCS: 45385; 88305; J2704

== ENCOUNTER 2023-12-21 09:43 | Outpatient (AMB) | payer MEDICARE, MEDICAID, SELFPAY ==
--- NOTE | 2023-12-21 09:43 | MHC.PC.OV ---
Vital Signs 12/21/23 09:44 Height 5 ft 10 in Weight 180 lb BMI 25.8 BP 138/82 Blood Pressure Location Lt brachial Position Sitting Pulse 74 Pulse Source Pulse Oximeter Pulse Oximetry (%) 96 Oxygen Delivery Method Room Air Intake Visit Reasons: 6mth f/u Assurance Senior Manager Insurance Required: No Accompanied by: Self / Same As Patient Allergies Penicillins Allergy (Unknown, Verified 12/21/23 09:49) Unknown Medication List - Last Reconciled 12/21/23 by Tello Minor MD No Known Home Meds Tobacco use date assessed: 12/21/23 Fall risk assessment: No Falls in past year Last assessed Fall Risk: 12/21/23 Dental Screening Dental Screen Date: 03/16/23 HPI 6mth f/u HPI Details hyperlipidemia diet controlled; due for labs; feels well [facility] Medical History Hyperlipidemia CVA (cerebral vascular accident) Cerebral aneurysm Surgical History No history of previous surgery Family History Mother No problems noted. Other Stroke Social History Household Members: Family Housing: House Do you presently have visiting nurse or other home services: No Alcohol intake: never Patient Tobacco Use Status: Current everyday Tobacco user Tobacco use type: Cigarette Cigarettes Per Day: 10 Years Smoked: 55 e-Cigarette/Vaping Use: Never Used Second Hand Smoke Exposure: Yes service: No Current occupational status: retired Cognitive needs: No Hearing needs: No Vision needs: Yes (glasses) Questionnaire PHQ-9 Over the last 2 weeks, how often have you been bothered by any of the following problems? 1. Little interest or pleasure in doing things: not at all 2. Feeling down, depressed, or hopeless: not at all 3. Trouble falling or staying asleep, or sleeping too much: not at all 4. Feeling tired or having little energy: not at all 5. Poor appetite or overeating: not at all 6. Feeling bad about yourself - or that you are a failure or have let yourself or your family down: not at all 7. Trouble concentrating on things, such as reading the newspaper or watching television: not at all 8. Moving or speaking so slowly that other people could have noticed. Or the opposite - being so fidgety or restless that you have been moving around a lot more than usual: not at all 9. Thoughts that you would be better off or of hurting yourself in some way: not at all Total score: 0 Depression Screening Interpretation: Negative Depression Screening Done: Yes 37318 - PHQ-9 Billing: Yes Source: Developed by Drs. Alban Avalos, Arleen Solitario, Kenroy Mosher and colleagues, with an educational sudarshan from [employer]. Thrive Questionnaire Date Thrive assessed: 03/16/23 Are you currently unemployed and looking for a job?: No AUDIT C Alcohol Use Questionnaire (AUDIT-C) 1. How often do you have a drink containing alcohol?: Never 3. How often do you have six or more drinks on one occasion?: Never Total Score: 0 Score Reviewed/Action Taken: Yes NAGI-7 AMB Questionnaire NAGI-7 Date NAGI - 7 assessed: 03/16/23 Source: Developed by Drs. Alban Avalos, Arleen Solitario, Kenroy Mosher and colleagues, with an educational sudarshan from [employer]. Review of Systems Const Denies chills, Denies headache(s) and Denies weight loss ENT Denies headache(s) Card Denies chest pain, Denies syncope, Denies irregular heart rhythm and Denies dyspnea Resp Denies chest congestion, Denies cough and Denies dyspnea GI Denies abdominal pain, Denies change in stool character, Denies nausea and Denies vomiting Musc Denies deformity and Denies joint swelling Neuro Denies syncope and Denies headache(s) Physical exam (Primary Care) Vital Signs: Last Vital Signs Pulse 74 12/21/23 09:44 BP 138/82 12/21/23 09:44 Pulse Ox 96 12/21/23 09:44 Oxygen Delivery Method Room Air 12/21/23 09:44 BMI result Body Mass Index 25.8 Tobacco/Smoking Status: Tobacco use Status Tobacco use date assessed 12/21/23 12/21/23 09:50 Patient Tobacco Use Status Current everyday Tobacco 12/21/23 09:50 Tobacco use type Cigarette 12/21/23 09:50 e-Cigarette/Vaping Use Never Used 12/21/23 09:50 PHQ-9: PHQ-9 Score PHQ-9: Total score 0 12/21/23 09:50 Depression Screening Interpretation: Negative Thrive Assessment: Date of Thrive Assessment Date Thrive assessed 03/16/23 12/21/23 09:50 Const General: cooperative, comfortable, no acute distress and alert Neck Neck: Yes no lymphadenopathy Thyroid: Thyroid normal Resp Effort & Inspection: normal respiratory effort Auscultation: clear to auscultation bilaterally Percussion: percussion normal Cardio Jugular venous distension: no JVD Palpation: normal PMI Rate: regular rate Rhythm: regular rhythm Heart sounds: S1 normal heart sound present and S2 normal heart sound present GI Inspection: Yes normal to inspection Palpation (GI): No hepatosplenomegaly present Skin General skin exam: no rashes or lesions noted Extrem General: Yes no clubbing, cyanosis or edema Coding Level of Care Code Est Pt Level 3 (51474) Diagnoses Hyperlipidemia E78.5 Assessment & Plan Assessment & Plan (1) Hyperlipidemia: Code(s): E78.5 - Hyperlipidemia, unspecified Category: Medical Plan: stable; same rx Orders: Orders Lipid Panel Today Z13.220 - Encounter for screening for lipoid disorders Thyroid Stimulating Hormone Today Z13.29 - Encounter for screening for other suspected endocrine disorder Complete Blood Count Auto Diff Today Z13.0 - Encounter for screening for diseases of the blood and blood-forming organs and certain disorders involving the immune mechanism Comprehensive [place]. Panel Fast Today Z13.9 - Encounter for screening, unspecified
[2023-12-21 09:44] VITALS: BP 138/82; PULSE 74; O2SAT 96; BMI 25.8
== END 2023-12-21 10:00 | disposition home or self-care (01) ==
PROVIDERS: PCP Internal Medicine; Visit Provider Internal Medicine
DX: E78.5 Hyperlipidemia, unspecified (principal)

== ENCOUNTER → 2023-12-21 09:43 | Outpatient (BNVA) | payer MEDICARE, OTHER, SELFPAY | PROVIDERS: PCP Internal Medicine; Visit Provider Internal Medicine | DX: E78.5 Hyperlipidemia, unspecified (principal) | CPT/HCPCS: 99212 ==

== ENCOUNTER 2024-05-04 10:25 | Outpatient (REF) | payer MEDICARE, MEDICAID, SELFPAY ==
[2024-05-04 10:34] LABS: MANUAL DIFF FLAG NO
--- OUTSIDE RECORDS SUMMARY | 2024-05-04 11:20 | XMS_ITS | Patient Health Record ---
Author Organization [facility] Address [address] [place] [address] Care Team Providers Care Arts And Crafts Instructor Name Role Phone Tello Minor MD Primary Care Provider Alban Harper [phone] ALLERGIES Allergen (clinical drug ingredient) Drug/Non Drug Allergy documented on EMR Reaction Allergy Type Onset Date Status Penicillin Unknown Drug Allergy Active RESULTS Component Value Reference Range Notes Pathology Reviewed date:09/13/2023 08:24:21 AM Interpretation: Performing Lab:[facility], [address] [place] [phone] Notes/Report: REASON FOR REFERRAL No Information IMMUNIZATIONS Vaccine [...] Cologuard test (R19.5) Active confirmed Abnormal feces (291031071) Problem Diverticulosis of large intestine without perforation or abscess without bleeding (K57.30) Active confirmed Diverticul ar disease of colon (827269804) VITAL SIGNS Temperature 98.6 degrees Fahrenheit 08/10/2023 Blood pressure diastolic 00 mm Hg 08/10/2023 Height 5 ft 10 in in 08/10/2023 Blood pressure systolic 000 mm Hg 08/10/2023 Weight 177 lb 6 oz lbs 08/10/2023 BMI 25.45 kg/m2 08/10/2023 Encounters Encounter Location Date Provider Diagnosis [facility] [address] [place], [place] [phone] 08/22/2023 Alban Gray Encounter for screen ing colonoscopy Z12.11 ; Colon polyps K63.5 ; Heme + stool R19.5 ; Diverticulosis of large intestine without perforation or abscess without bleeding K57.30 and Internal hemorrhoids K64.8 [facility] [address] [place] [phone] 08/10/2023 Alban Gray Positive colorectal cancer screening using Cologuard test R19.5 [facility] [address] [place] [phone] 08/18/2023 Alban Gray ASSESSMENTS Encounter Date Diagnosis Assessment Notes Treatment Notes Treatment Clinical Notes 08/22/2023 Encounter for screening colonoscopy (ICD-10 - Z12.11) 08/22/2023 Colon polyps (ICD-10 - K63.5) 08/10/2023 Positive colorectal cancer screening using Cologuard test (ICD-10 - R19.5) 08/22/2023 Heme + stool (ICD-10 - R19.5) 08/22/2023 Diverticulosis of large intestine without perforation or abscess without bleeding (ICD-10 - K57.30) 08/22/2023 Internal hemorrhoids (ICD-10 - K64.8) PLAN OF TREATMENT Future Test Test Name Order Date COLONOSCOPY 08/10/2023 Insurance Providers Payer Name Payer Address Payer Phone Subscriber Number Group Number Insured Name Patient Relationship to Insured Coverage Start Date Coverage End Date MEDICARE OF [place] [address] [place] [address] [id number] ANDREW JOHNSON Self - patient is the insured MEDICAID OF [facility] [address] [place] [address] [phone] [id number] ANDREW JOHNSON Self - patient is the insured MEDICAL (GENERAL) HISTORY Medical History History ICD Code 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
--- OUTSIDE RECORDS SUMMARY | 2024-05-04 11:20 | XMS_ITS ---
Author Organization [facility] Address [address] [place] [phone] Care Team Providers Care Inspector Of Weights And Measures Name Role Phone Tello Minor MD Primary Care Provider Alban Harper Unavailable [phone] ALLERGIES Allergen (clinical drug ingredient) Drug/Non Drug Allergy documented on EMR Reaction Allergy Type Onset Date Status Penicillin Unknown Drug Allergy Active REASON FOR VISIT Patient presents today for a POSITIVE COLOGUARD IMMUNIZATIONS Vaccine Route Administration Date Status Comme [...] Cologuard test (R19.5) Active confirmed Abnormal feces (962801253) VITAL SIGNS BMI 25.45 kg/m2 08/10/2023 Blood pressure systolic 000 mm Hg 08/10/19 24 Blood pressure diastolic 00 mm Hg 024 Height 5 ft 10 in in 08/10/2023 Temperature 98.6 degrees Fahrenheit 08/10/19 24 Weight 177 lb 6 oz lbs 08/10/2023 Encounters Encounter Location Date Provider Diagnosis [facility] [address] [place] [phone] 08/10/2023 Alban Gray Positive colorectal cancer screening using Cologuard test R19.5 ASSESSMENTS Encounter Date Diagnosis Assessment Notes Treatment Notes Treatment Clinical Notes 08/10/2023 Positive colorectal cancer screening using Cologuard test (ICD-10 - R19.5) PLAN OF TREATMENT Future Test Test Name Order Date COLONOSCOPY 08/10/2023 Next Appt Details Follow Up: prn, Reason: Progress Notes * Examination Category Sub-Category Detail Notes General Examination GENERAL APPEARANCE: pleasant , well nourished, well developed, in no acute distress EYES: sclera non-icteric NECK/THYROID: no cervical lymphade nopathy, neck supple HEART: S1, S2 normal LUNGS: clear to auscultatio n bilaterally ABDOMEN: normal bowel sounds, no guarding or rigidity, no guarding or rigidity, no masses palpable, soft, nontender, nondistended Soft, reducible, NT periumbilical hernia NEUROLOGIC: alert and oriented SKIN: nonjaundiced, no spi srinivasa angiomata EXTREMITIES: Pretibial edema ORAL CAVITY: mucosa moist
--- OUTSIDE RECORDS SUMMARY | 2024-05-04 11:20 | XMS_ITS ---
Author Organization [facility] Address [address] [place] [address] Care Team Providers Care Resolution Specialist Name Role Phone Tello Minor MD Primary Care Provider Unavaila Alban Painter Unavailable [phone] REASON FOR VISIT positive colon cancer screening using cologuard, PROBLEMS Problem Type ICD Code Onset Dates Problem Status W/U Status Risk SNOMED Code Notes Problem Diverticulosis of large intestine without perforation or abscess without bleeding (K57.30) Active confirmed Diverticul ar disease of colon (849643424) Encounters Encounter Location Date Provider Diagnosis [facility] Out[place] [address] [place], [place] [phone] 08/22/2023 Alban Gray Encounter for scre ening colonoscopy Z12.11 ; Colon polyps K63.5 ; Heme + stool R19.5 ; Diverticulosis of large intestine without perforation or abscess without bleeding K57.30 and Internal hemorrhoids K64.8 ASSESSMENTS Encounter Date Diagnosis Assessment Notes Treatment Notes Treatment Clinical Notes 08/22/2023 Encounter for screening colonoscopy (ICD-10 - Z12.11) 08/22/2023 Colon polyps (ICD-10 - K63.5) 08/22/2023 Heme + stool (ICD-10 - R19.5) 08/22/2023 Diverticulosis of large intestine without perforation or abscess without bleeding (ICD-10 - K57.30) 08/22/2023 Internal hemorrhoids (ICD-10 - K64.8) PLAN OF TREATMENT No Information
--- OUTSIDE RECORDS SUMMARY | 2024-05-04 11:20 | XMS_ITS ---
Author Organization [facility] Address [address] [place] [phone] Care Team Providers Care Assistant Chief Of Police Name Role Phone Tello Minor MD Primary Care Provider Unavaila Alban Painter Unavailable [phone] REASON FOR VISIT lock h & P Encounters Encounter Location Date Provider Diagnosis [facility] [address] [place] [phone] 08/18/2023 Alban Gray PLAN OF TREATMENT No Information
[2024-05-04 11:40] LABS: Basophils Percent Auto 0.4 % (0-2); Eosinophils Absolute Auto 0.2 X10*3/uL (0.0-0.4); Eosinophils Percent Auto 2.4 % (0-4); Hematocrit 44.6 % (42.0-52.0); Hemoglobin 14.3 g/dl (14.0-18.0); Imm Gran Abs Auto 0.03 X10*3/uL (0.00-0.03); Imm Gran Pct Auto 0.4 % (0.0-0.4); Lymphocytes Absolute Auto 1.2 X10*3/uL (1.2-4.9); Lymphocytes Percent Auto 15.2 % (20-40); Mean Corpuscular HGB Conc 32.1 g/dl (31.0-36.0); Mean Corpuscular Volume 96.7 fL (80.0-98.0); Mean Platelet Volume 10.2 fL (9.4-12.4); Monocytes Absolute Auto 1.1 X10*3/uL (0.1-1.2); Monocytes Percent Auto 14.7 % (2-11); Neutrophils Absolute Auto 5.2 x10*3/uL (2.0-8.3); Neutrophils Percent Auto 66.9 % (45-73); Platelet Count 246 X10*3/uL (160-400); Red Blood Count 4.61 X10*6/uL (4.60-5.80); Red Cell Distribution Width 14.6 % (11.0-16.0); White Blood Count 7.8 X10*3/uL (4.8-10.8)
[2024-05-04 12:32] LABS: Alanine Aminotransferase 11 U/L (0-40); Albumin Level 3.6 g/dL (3.5-5.0); Alkaline Phosphatase 67 U/L (39-117); Anion Gap 13 (12-20); Aspartate Amino Transferase 20 U/L (5-37); Bilirubin Total 0.4 mg/dL (0.0-1.0); Blood Urea Nitrogen 18 mg/dL (9-16); Calcium 9.2 mg/dL (8.4-10.2); Carbon Dioxide 24 mmol/L (22-29); Chloride 108 mmol/L (96-108); Cholesterol 117 mg/dL (<200); Estimated Glomerular Filt Rate > 60; Glucose Fasting 85 mg/dL (60-99); HDL Cholesterol 38 mg/dL (>40); LDL Cholesterol Calculated 64 mg/dL (<100); Potassium 4.8 mmol/L (3.3-5.1); Sodium 140 mmol/L (135-145); Thyroid Stimulating Hormone 0.42 uIU/mL (0.32-4.0); Total Protein 7.3 g/dL (6.5-8.0); Triglycerides 79 mg/dL (<150)
== END 2024-05-04 10:26 | disposition home or self-care (01) ==
LOC: HO.LAB 10:25
PROVIDERS: PCP Internal Medicine; Visit Provider Internal Medicine
DX: Z13.29 Encounter for screening for other suspected endocrine disorder (principal); Z13.220 Encounter for screening for lipoid disorders; Z13.0 Encounter for screening for diseases of the blood and blood-forming organs and certain disorders involving the immune mechanism; Z13.6 Encounter for screening for cardiovascular disorders
CPT/HCPCS: 36415; 80053; 80061; 84443; 85025

== ENCOUNTER 2024-05-18 09:33 | Outpatient (AMB) | payer MEDICARE, SELFPAY ==
--- NOTE | 2024-05-18 09:39 | A.OFFPC_ITS ---
Vital Signs 05/18/24 09:40 Height 5 ft 10 in Weight 180 lb BMI 25.8 BP 110/62 Blood Pressure Location Lt brachial Position Sitting Temp 97.1 F Temp Source Temporal Artery Scan Intake Visit Reasons: 6 month f/u Intake Note: Patient is here to follow up on HLD. 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 Accompanied by: Son Allergies Penicillins Allergy (Unknown, Verified 05/18/24 09:40) Unknown Medication List - Last Reconciled 05/21/24 by Tello Minor MD azithromycin take 500 mg today (day 1), then 250 mg for 4 days (days 2-5) PO furosemide (Lasix) 20 mg PO DAILY permethrin 5% 1 appl topical Q14D 2 doses Tobacco use date assessed: 05/18/24 Fall risk assessment: No Falls in past year Last assessed Fall Risk: 05/18/24 Dental Screening Dental Screen Date: 05/18/24 Did you have a dental visit in the last 12 months?: No Did you have a dental problem in the last 6 months where you did not have access to dental care?: No Was dental information given to patient?: No HPI 6 month f/u HPI Details has cellulitis both lower legs PFSH Medical History (Updated 05/21/24 @ 09:10 by Tello Minor MD) Hyperlipidemia CVA (cerebral vascular accident) Cerebral aneurysm Surgical History No history of previous surgery Family History Mother No problems noted. Other Stroke Social History Household Members: Family Housing: House Do you presently have visiting nurse or other home services: No Alcohol intake: never Patient Tobacco Use Status: Current everyday Tobacco user Tobacco use type: Cigarette Cigarette Packs Per Day: 0.5 Cigarettes Per Day: 10 Years Smoked: 55 e-Cigarette/Vaping Use: Never Used Second Hand Smoke Exposure: Yes service: No Current occupational status: retired Cognitive needs: No Hearing needs: No Vision needs: Yes (glasses) Questionnaire PHQ-9 Over the last 2 weeks, how often have you been bothered by any of the following problems? 1. Little interest or pleasure in doing things: not at all 2. Feeling down, depressed, or hopeless: not at all 3. Trouble falling or staying asleep, or sleeping too much: not at all 4. Feeling tired or having little energy: not at all 5. Poor appetite or overeating: not at all 6. Feeling bad about yourself - or that you are a failure or have let yourself or your family down: not at all 7. Trouble concentrating on things, such as reading the newspaper or watching television: not at all 8. Moving or speaking so slowly that other people could have noticed. Or the opposite - being so fidgety or restless that you have been moving around a lot more than usual: not at all 9. Thoughts that you would be better off or of hurting yourself in some way: not at all Total score: 0 Depression Screening Interpretation: Negative Depression Screening Done: Yes Source: Developed by Drs. Alban Avalos, Arleen Solitario, Kenroy Mosher and colleagues, with an educational sudarshan from [employer]. Thrive Questionnaire Date Thrive assessed: 05/18/24 I am a: Patient What is your living situation today?: I have a steady place to live Within the past 12 months, did the food you bought not last and you didn't have the money to get more?: Never true Within the past 12 months, did you worry whether your food would run out before you got money to buy more?: Never true Do you have trouble paying for medicines?: No Do you have trouble getting transportation to medical appointments?: No Do you have trouble paying your heating and electricity bill?: No Do you have trouble taking care of your child, family member or friend?: No Do you have trouble with day-to-day activities such as bathing, preparing meals, shopping, managing finances, etc.?: No Are you currently unemployed and looking for a job?: No Are you interested in more education?: No Please select the resources that you would like help with: None Currently or been in a relationship where the following occur: No concerns reported THRIVE Score: 0 AUDIT C Alcohol Use Questionnaire (AUDIT-C) 1. How often do you have a drink containing alcohol?: Never 3. How often do you have six or more drinks on one occasion?: Never Total Score: 0 NAGI-7 AMB Questionnaire NAGI-7 Date NAGI - 7 assessed: 05/18/24 Feeling nervous, anxious, or on edge: 0 = Not at all Not being able to stop or control worryin = Not at all Worrying too much about different things: 0 = Not at all Trouble relaxin = Not at all Being so restless that it is hard to sit still: 0 = Not at all Becoming easily annoyed or irritable: 0 = Not at all Feeling afraid as if something awful might happen: 0 = Not at all Total NAGI-7 score (0-4 normal; 5-9 mild; 10-14 moderate; 15-21 severe): 0 Source: Developed by Drs. Alban Avalos, Arleen Solitario, Kenroy Mosher and colleagues, with an educational sudarshan from [employer]. Review of Systems Const Denies chills, Denies headache(s) and Denies weight loss ENT Denies headache(s) Card Denies chest pain, Denies syncope, Denies irregular heart rhythm and Denies dyspnea Resp Denies chest congestion, Denies cough and Denies dyspnea GI Denies abdominal pain, Denies change in stool character, Denies nausea and Denies vomiting Musc Denies deformity and Denies joint swelling Neuro Denies syncope and Denies headache(s) Physical exam (Primary Care) Vital Signs: Last Vital Signs Temp 97.1 F 05/18/24 09:40 BP 110/62 05/18/24 09:40 BMI result Body Mass Index 25.8 Tobacco/Smoking Status: Tobacco use Status Tobacco use date assessed 05/18/24 05/18/24 09:45 Patient Tobacco Use Status Current everyday Tobacco 05/18/24 09:45 Tobacco use type Cigarette 05/18/24 09:45 e-Cigarette/Vaping Use Never Used 05/18/24 09:45 PHQ-9: PHQ-9 Score PHQ-9: Total score 0 05/18/24 09:45 Depression Screening Interpretation: Negative Thrive Assessment: Date of Thrive Assessment Date Thrive assessed 05/18/24 05/18/24 09:45 Currently or been in a relationship where the following occur: No concerns reported Const General: cooperative, comfortable, no acute distress and alert Neck Neck: Yes no lymphadenopathy Thyroid: Thyroid normal Resp Effort & Inspection: normal respiratory effort Auscultation: clear to auscultation bilaterally Percussion: percussion normal Cardio Jugular venous distension: no JVD Palpation: normal PMI Rate: regular rate Rhythm: regular rhythm Heart sounds: S1 normal heart sound present and S2 normal heart sound present GI Inspection: Yes normal to inspection Palpation (GI): No hepatosplenomegaly present Skin Other: cellulitis both lower extremities Extrem General: Yes no clubbing, cyanosis or edema Coding Level of Care Code Est Pt Level 3 (76263) Diagnoses Cellulitis L03.90 Assessment & Plan Assessment & Plan (1) Cellulitis: Code(s): L03.90 - Cellulitis, unspecified Category: Medical Plan: rx sent Medications: New permethrin 5% apply second treatment 14 days after first treatment if live lice remain 1 appl topical Q14D 60 grams 0RF 2 doses azithromycin take 500 mg today (day 1), then 250 mg for 4 days (days 2-5) PO 6 tabs 1RF furosemide (Lasix) 20 mg PO DAILY 20 tabs 0RF
[2024-05-18 09:40] VITALS: BP 110/62; TEMP 36.2; BMI 25.8
--- OUTSIDE RECORDS SUMMARY | 2024-05-18 10:21 | XMS_ITS | Patient Health Record ---
Author Organization [facility] Address [address] [place] [address] Care Team Providers Care Classifying Machine Operator Name Role Phone Iván CAZARES, Tello Primary Care Provider Jonesa Alban Painter Unavailable [phone] Allergies Allergen (clinical drug ingredient) Drug/Non Drug Allergy documented on EMR Reaction Allergy Type Onset Date Status Penicillin Unknown Drug Allergy Active Results Component Value Reference Range Notes Pathology Reviewed date:09/13/2023 08:24:21 AM Interpretation: Performing Lab:[facility], [address] [place] [phone] Notes/Report: Name: Ruben Winter Age/Sex: 73/M : 1950 Unit#: [id number] Attend Dr: Alban Gray Re08/22/23 Status : [facility] Location: [facility] Disch: SPEC : [id number] RECD : 08/23/23 STATUS: GABBIE COOPER NUM: [id number] COOPER: 08/22/23-1446 [facility] DR: Alban Gray ENTERED: 08/23/23- 14 SP TYPE: Surgical OTHR DR: Tello Minor MD ORDERED: HE Stain/12 , Gross Micro L4/4 Diagnosis A. Colon, transverse , polypectomies: - Fragments of tubul ar adenoma; negative for high-grade dysplasia or carcinoma. - Fragments of sessi le serrated lesion/polyp; negative for cytologic dysplasia. B. Colon, 40 cm, lola ypectomy: Tubular adenoma; negative for high-grade dysplasia or carcinoma. C. Colon, 20 cm, lola ypectomy: Tubular adenoma; negative for high-grade dysplasia or carcinoma. D. Colon, 15 cm, lola ypectomy: Hyperplastic mucosal polyp. Clinical History Pre-Op Dx: Positive Cologuard Post-Op Dx: Polyps, diverticulosis, hemorrhoids Microscopic Description A-D. Microscopic sec tions reviewed. Material Received A. Transverse colon polyps B. Polyp at 40 cm C. Polyp at 20 cm D. Polyp at 15 cm Gross Description Received in four parts. Part A: Received in formalin labeled ?transverse colon polyps? are 4 semitranslucent, pale, white-hernandez and hernandez-br own papular and lobular-polypoid tissue fragments ranging from 0.4-0.5 cm, submitted in tot o in a cassette labeled A. Part B: Received in formalin labeled ?polyp at 40 cm? is a 0.8 x 0.6 x 0.5 cm pedunculated hernandez-brown polyp with an attached 0.5 cm in diameter and 0.4 cm in length hernandez stalk. The resected base is ink ed and the polyp is bisected and entirely submitted in a cassette labeled B. Part C: Received in formalin labeled ?polyp at 20 cm? is a 0.6 x 0.5 x 0.4 cm hernandez-brown CONTINUED ON NEXT PAGE Name: MoyCasRuben d Age/Sex: 73/M : 1950 Unit#: [id number] Attend Dr: Alban Gray Re08/22/23 Status : [facility] Location: [facility] Disch: SPEC : [id number] RECD : 08/23/23 STATUS: [facility] NUM: [id number] COOPER: 08/22/23-1445 [facility] DR: Alban Gray ENTERED: 08/23/23-11 25 SP TYPE: Surgical OTHR DR: Tello Minor MD ORDERED: HE Stain/12 , Gross Micro L4/4 Gross Description (Continued) polypoid portion of tissue. The resected base is inked and the specimen is sectioned and entirely submitted a long with a 0.4 cm in greatest dimension fragment of hernandez tissue, submitted in toto in a cassette labeled C. Part D: Received in formalin labeled ?polyp at 15 cm? is a 0.8 cm hernandez-brown papular tissue fragment. The resect ed base is inked and the specimen is sectioned and entirely submitted in a cassette labeled D. CEDS Copies To: Tello Minor MD [address] [place] [address] Alban Gray [address] [place] [address] [id number] [place] [id number] Signed (si gnature on file) Renan Willson MD 08/24/23 1610 END OF REPORT Reason For Referral No Information Immunizations Vaccine Route Administration Date Status Comme nts Influenza Unknown 08/10/2023 Refused Social History Tobacco Use: Social History Observation Description Date Details (start date - stop date) Current Smoker NA - NA Tobacco Use/Smoking Question Answer Notes Patient is a current smoker Alcohol Screen Question Answer Notes Did you have a drink containing alcohol in the p ast year? No Points 0 Interpretation Negative Section Notes: Smoker; no alcohol Problems Problem Type SNOMED Code ICD Code Onset Dates Problem Status W/U Status Risk Notes Problem Diverticular disease of colon (360588537) Diverticulosis of large intestine without perforation or abscess without bleeding (K57.30) Active confirmed Problem Abnormal feces (112376147) Positive colorectal cancer screening using Cologuard test (R19.5) Active confirmed Vital Signs Temperature 98.6 degrees Fahrenheit 08/10/2023 Blood pressure diastolic 00 mm Hg 08/10/2023 Height 5 ft 10 in in 08/10/2023 Blood pressure systolic 000 mm Hg 08/10/2023 Weight 177 lb 6 oz lbs 08/10/2023 BMI 25.45 kg/m2 08/10/2023 Encounters Encounter Location Date Provider Diagnosis [facility] Out[facility] [address], [place] [phone] 08/22/2023 Alban Gray Encounter for screen ing colonoscopy Z12.11 ; Colon polyps K63.5 ; Heme + stool R19.5 ; Diverticulosis of large intestine without perforation or abscess without bleeding K57.30 and Internal hemorrhoids K64.8 [facility] [address] [place] [address] 08/10/2023 Alban Gray Positive colorectal cancer screening using Cologuard test R19.5 [facility] [address] [place] [address] 08/18/2023 Alban Gray Assessments Encounter Date Diagnosis (ICD Code) Assessment Notes Treatment Notes Treatment Clinical Notes Section Notes 08/22/2023 Encounter for screening colonoscopy (ICD-10 - Z12.11) 08/22/2023 Colon polyps (ICD-10 - K63.5) 08/10/2023 Positive colorectal cancer screening using Cologuard test (ICD-10 - R19.5) Overall, Jeremy appears well from a GI standpoint. He is not having any new nor worrisome GI complaints. His recent laboratories did not reveal any sign of anemia. However, given the fact that he has never had a colonoscopy and had a positive Cologuard test earlier this year, I did recommend that he undergo a colonoscopy for further evaluation in the near future. We did review the rationale for that in regard to colorectal cancer prevention and/or early detection. Full consent is obtained for this, including risks of bleeding and perforation. The procedure will be done with monitored anesthesia care. We also reviewed his history of the periumbilical abdominal wall hernia. At the present time it appears to be asymptomatic and not in need of any surgical intervention. However, we did review that if he ever develops any acute enlargement and/or tenderness of the hernia he should seek urgent surgical attention through the ER. Jeremy was comfortable with this plan. Thank you again for allowing me to participate in Jeremy's care. I shall continue to keep you advised of his progress. 08/22/2023 Heme + stool (ICD-10 - R19.5) 08/22/2023 Diverticulosis of large intestine without perforation or abscess without bleeding (ICD-10 - K57.30) 08/22/2023 Internal hemorrhoids (ICD-10 - K64.8) Plan Of Treatment Future Test Test Name Order Date COLONOSCOPY 08/10/2023 Insurance Providers Payer Name Payer Address Payer Phone Subscriber Number Group Number Insured Name Patient Relationship to Insured Coverage Start Date Coverage End Date [place] [address] [place] [address] [id number] [id number] Self - patient is the insured MEDICAID OF [facility] [address] [place] [phone] [id number] JEREMY WINTER Self - patient is the insured Medical (General) History Medical History History ICD Code 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
--- OUTSIDE RECORDS SUMMARY | 2024-05-18 10:22 | XMS_ITS ---
Author Organization [facility] Address [address] [place] [phone] Care Team Providers Care Fashion Illustrator Name Role Phone Tello Minor MD Primary Care Provider Jonesa Alban Painter Unavailable [phone] REASON FOR VISIT positive colon cancer screening using cologuard, Problems Problem Type SNOMED Code ICD Code Onset Dates Problem Status W/U Status Risk Notes Problem Diverticular disease of colon (307256753) Diverticulosis of large intestine without perforation or abscess without bleeding (K57.30) Active confirmed Encounters Encounter Location Date Provider Diagnosis [facility] [address] [place] [phone] 08/22/2023 Alban Gray Encounter for scre ening [...] * ANDREW JOHNSON JrDOB: (74 yo M)Acc No.[id number]:08/22/2023 COLON WITH MAC Patient:?ANDREW JOHNSON Jr Provider:?Alban Gray MD :1950???Age:73 Y???Sex:Male Jace e:08/22/2023 Address:[address] [place], [place] [phone] Pcp:Tello Minor MD Subjective: * Chief Complaints: * ???1. Positive colon cancer screening using cologuard,. * Medical History:? Objective: * Vitals:? Assessment: * Assessment: 1.?Encounter for screening c olonoscopy - Z12.11 (Primary)???2.?Colon polyps - K63.5???3.?Heme + stool - R19.5???4.?Diverticulosis of large intestine without perforation or abscess without bleeding - K57.30???5.?Internal hemorrhoids - K64.8??? Plan: * Treatment: * Procedure Codes:?53958 LESIO N REMOVAL COLONOSCOPY, Modifiers: PT , 0529F INTRVL 3+YRS PTS CLNSCP DOCD, 0528F RCMND FLW-UP 10 YRS DOCD, Modifiers: 1P * * The named appointment provid er may or may not be the originator of this progress note, and it is not deemed complete until electronically signed by the appointment provider. Sign off status: Pending * Provider:?Alban Gray MD Date:? 024 Generated for Angelina gama/Juan/Sharasmitting on:?05/18/2024 10:22 AM EST
--- OUTSIDE RECORDS SUMMARY | 2024-05-18 10:22 | XMS_ITS ---
Author Organization [facility] Address [address] [place] [phone] Care Team Providers Care Early Childhood Associate Name Role Phone Tello Minor MD Primary Care Provider Unavaila Alban Painter [phone] REASON FOR VISIT lock h & P Encounters Encounter Location Date Provider Diagnosis [facility] [address] [place] [phone] 08/18/2023 Alban Gray Plan Of Treatment No Information Progress Notes * ANDREW JOHNSON JrDOB: (73 yo M)Acc No.[id number]:08/18/2023 Patient:?ANDREW JOHNSON :1950???Age:73 Y???Sex:Male Address:[address] [place] [address], [address] * true * Date:? Generated for Angelina gama/Juan/eTransmitting on:?05/18/2024 10:21 AM EST
--- OUTSIDE RECORDS SUMMARY | 2024-05-18 10:22 | XMS_ITS ---
Author Organization [facility] Address [address] [place] [phone] Care Team Providers Care Rubber Heel And Sole Press Tender Name Role Phone Tello Minor MD Primary Care Provider Alban Harper Unavailable [phone] Allergies Allergen (clinical drug ingredient) Drug/Non Drug Allergy documented on EMR Reaction Allergy Type Onset Date Status Penicillin Unknown Drug Allergy Active REASON FOR VISIT Patient presents today for a POSITIVE COLOGUARD Immunizations Vaccine Route Administration Date Status Comme [...] Problem Status W/U Status Risk Notes Problem Abnormal feces (281419443) Positive colorectal cancer screening using Cologuard test (R19.5) Active confirmed Vital Signs Temperature 98.6 degrees Fahrenheit 08/10/19 24 Blood pressure systolic 000 mm Hg 08/10/19 24 Blood pressure diastolic 00 mm Hg 024 Height 5 ft 10 in in 08/10/2023 Weight 177 lb 6 oz lbs 08/10/2023 BMI 25.45 kg/m2 08/10/2023 Encounters Encounter Location Date Provider Diagnosis [facility] [address] [place] [phone] 08/10/2023 Alban Gray Positive colorectal cancer screening using Cologuard test R19.5 Assessments Encounter Date Diagnosis (ICD Code) Assessment Notes Treatment Notes Treatment Clinical Notes Section Notes 08/10/2023 Positive colorectal cancer screening using Cologuard test (ICD-10 - R19.5) Overall, Andrew appears well from a GI standpoint. He [...] seek urgent surgical attention through the ER. Andrew was comfortable with this plan. Thank you again for allowing me to participate in Andrew's care. I shall continue to keep you advised of his progress. Plan Of Treatment Future Test Test Name Order Date COLONOSCOPY 08/10/2023 Next Appt Details Follow Up: prn, Reason: Progress Notes * ANDREW JOHNSON JrDOB: (73 yo M)Acc No.[id number]:08/10/2023 Progress Notes Patient:?ANDREW JOHNSON Provider:?Alban Gray MD :1950???Age:73 Y???Sex:Male Jace e:08/10/2023 Address:[address] [place], [place] [id number] Pcp:Tello Minor MD Subjective: * Chief Complaints: * ???Patient presents today fo r a POSITIVE COLOGUARD * HPI: ???incontinence:? I saw Andrew in consultation today regarding further evaluation of a positive Cologuard test. ?As you know, Andrew is a 73-year-old male who turned in a Cologuard test in early March that returned as positive. He reports that he has never had a colonoscopy nor any prior Cologuard testing. He presently feels well from a GI standpoint. He enjoys a good appetite, without any significant heartburn or dysphagia. His bowel movements have been regular and without any signs of bleeding. He denies any abdominal pain, jaundice, nor weight loss. He has had a history of a periumbilical abdominal wall hernia but has not need to see a surgeon for that as it has not enlarged and is not causing any pain or tenderness. He denies any known family history of colorectal cancer. ?Laboratories in December of 2022 revealed a normal CBC, chemistries and renal function, and LFTs. * ROS:?General/Constitutional:?Change in appetite?denies.?Chills?denies.?Fatigue?denies.?Ophthalmologic:?Comments?all negative.?ENT:?Comments?all negative.?Respiratory:?hemoptysis?denies.?Cough?denies.?Cardiovascular:?Chest pain?denies.?Orthopnea?denies.?Gastrointestinal:?Comments?See HPI for details.?Genitourinary:?Hematuria?denies.?Dysuria?denies.?Musculoskeletal:?Painful joints?denies.?Weakness?denies.?Skin:?Itching?denies.?Rash?denies.?Neurologic:?Headache?denies.?Seizures?denies.?Psychiatric:?Comments?all negative.? * Medical History:? * Surgical History:?Tonsils * Hospitalization/Major Diagno stic Procedure:?No Hospitalization History. * Family History:?Father: dece ased.?Mother: .? No family history of colon cancer or liver cancer. Father of pancreatic cancer. * Social History:?Tobacco Use:?Tobacco Use/Smoking?Patient is a?current smoker.?Drugs/Alcohol:?Alcohol Screen?Did you have a drink containing alcohol in the past year??No,?Points?0,?Interpretation?Negative.?Miscellaneous:?Marital status: . Occupation: retired. ???Smoker; no alcohol. * Medications:?None * Allergies:?Penicillinyes[All ergies Verified] Objective: * Vitals:?Wt: 177 lb 6 oz, Ht: 5 ft 10 in, BMI:25.45 Index, BP: 000/00 mm Hg, Temp: 98.6. * Examination: ???General Examination: ?GENERAL APPEARANCE:?pleasant, well nourished, well developed, in no acute distress.?EYES:?sclera non-icteric.?ORAL CAVITY:?mucosa moist.?NECK/THYROID:?no cervical lymphadenopathy, neck supple.?SKIN:?nonjaundiced, no spider angiomata.?HEART:?S1, S2 normal.?LUNGS:?clear to auscultation bilaterally.?ABDOMEN:?normal bowel sounds, no guarding or rigidity, no guarding or rigidity, no masses palpable, soft, nontender, nondistended ?Soft, reducible, NT?periumbilical hernia.?EXTREMITIES:?Pretibial edema.?NEUROLOGIC:?alert and oriented.? Assessment: * Assessment: 1.?Positive colorectal cance r screening using Cologuard test - R19.5 (Primary)? Overall, Andrew appears wel l from a GI standpoint. He is not [...] seek urgent surgical attention through the ER. Andrew was comfortable with this plan. Thank you again for allowing me to participate in Andrew's care. I shall continue to keep you advised of his progress. Plan: * Treatment: * Immunizations:? Influenza (Not administered - Refused: Patient decision) * Procedure Codes:?3017F COLOR ECTAL CA SCREEN DOC [id number] BP SCR NOT PRFRM REC REASON [id number] Pt scrn tbco and id as user * Preventive Medicine:? ??Counseling:?Care goal follow-up plan:?Above Normal BMI Follow-up?Giving encouragement to exercise,?BMI management provided?Yes.?Smoking?Patient counseled on the dangers of tobacco use and urged to quit.?08/10/2023,?Relapse prevention:?Discussed the possibility of negative mood or depression after quitting..? * Follow Up:?prn * * Sign off status: Completed true * Provider:?Alban Gray MD Date:? 024 Generated for Angelina gama/Juan/eTransmitting on:?05/18/2024 10:22 AM EST History and Physical Notes * HPI (History of Present Illness) Category Sub-Category Detail Notes Category Not es incontinence I saw Andrew in consultation today regarding further evaluation of a positive Cologuard test. As you know, Andrew is a 73-year-old male who turned in a Cologuard test in early March that returned as positive. He reports that he has never had a colonoscopy nor any prior Cologuard testing. He presently feels well from a GI standpoint. He enjoys a good appetite, without any significant heartburn or dysphagia. His bowel movements have been regular and without any signs of bleeding. He denies any abdominal pain, jaundice, nor weight loss. He has had a history of a periumbilical abdominal wall hernia but has not need to see a surgeon for that as it has not enlarged and is not causing any pain or tenderness. He denies any known family history of colorectal cancer. Laboratories in December of 2022 revealed a normal CBC, chemistries and renal function, and LFTs. Examination Category Sub-Category Detail Notes Category Not es General Examination GENERAL APPEARANCE: pleasant , well [...]
== END 2024-05-18 10:05 | disposition home or self-care (01) ==
PROVIDERS: PCP Internal Medicine; Visit Provider Internal Medicine
DX: L03.90 Cellulitis, unspecified (principal)

== ENCOUNTER → 2024-05-18 09:33 | Outpatient (BNVA) | payer MEDICARE, OTHER, SELFPAY | PROVIDERS: PCP Internal Medicine; Visit Provider Internal Medicine | DX: L03.90 Cellulitis, unspecified (principal) | CPT/HCPCS: 99212 ==

== ENCOUNTER 2024-08-20 09:56 | Outpatient (AMB) | payer MEDICARE, MEDICAID, SELFPAY ==
--- NOTE | 2024-08-20 10:16 | A.OFFPC_ITS ---
Vital Signs 08/20/24 10:17 Height 5 ft 10 in Weight 171 lb BMI 24.5 BP 120/64 Blood Pressure Location Lt brachial Position Sitting Pulse 73 Pulse Source Pulse Oximeter Temp 97.1 F Temp Source Temporal Artery Scan Pulse Oximetry (%) 96 Oxygen Delivery Method Room Air Intake Visit Reasons: Transfer Care from Dr. Minor 3mth f/u Intake Note: Patient is here today for JAEL from Dr Minor Senior Linux Systems Administrator Required: No Electrician Constructor Supervisor: Not Required per policy Accompanied by: Self / Same As Patient Allergies Penicillins Allergy (Unknown, Verified 08/20/24 10:26) Unknown Medication List - Last Reconciled 08/20/24 by Juliette Rao PA-C No Known Home Meds Tobacco use date assessed: 08/20/24 Fall risk assessment: No Falls in past year Last assessed Fall Risk: 08/20/24 Dental Screening Dental Screen Date: 05/18/24 HPI Transfer Care from Dr. Minor 3mth f/u HPI Details 74-year-old male with past medical histo ry of CVA, hyperlipidemia last seen 05/[address] Minor coming in for transfer of care. Presenting with management of leg skin issues and evaluation of shortness of breath. The patient reports a chronic issue with stasis dermatitis on the legs, which has occasionally progressed to cellulitis. The condition is aggravated by scratching due to severe itching, especially when removing socks at night. Recommend switching to a thick cream instead of hydrocortisone to prevent skin thinning and discoloration. The patient had a stroke and continues to experience residual effects such as impaired balance and reduced walking ability. Shortness of breath is noted during substantial physical activity, like walking long hallways, and could associate with chronic smoking, raising concerns of possible COPD. [facility] Medical History Hyperlipidemia Cerebral aneurysm Surgical History No history of previous surgery Family History Mother No problems noted. Other Stroke Social History Household Members: Family Housing: House Do you presently have visiting nurse or other home services: No Alcohol intake: never Patient Tobacco Use Status: Current everyday Tobacco user Tobacco use type: Cigarette Cigarette Packs Per Day: 0.5 Cigarettes Per Day: 10 Years Smoked: 55 e-Cigarette/Vaping Use: Never Used Second Hand Smoke Exposure: Yes service: No Current occupational status: retired Cognitive needs: No Hearing needs: No Vision needs: Yes (glasses) Questionnaire PHQ-9 Over the last 2 weeks, how often have you been bothered by any of the following problems? 1. Little interest or pleasure in doing things: not at all 2. Feeling down, depressed, or hopeless: not at all 3. Trouble falling or staying asleep, or sleeping too much: not at all 4. Feeling tired or having little energy: not at all 5. Poor appetite or overeating: not at all 6. Feeling bad about yourself - or that you are a failure or have let yourself or your family down: not at all 7. Trouble concentrating on things, such as reading the newspaper or watching television: not at all 8. Moving or speaking so slowly that other people could have noticed. Or the opposite - being so fidgety or restless that you have been moving around a lot more than usual: not at all 9. Thoughts that you would be better off or of hurting yourself in some way: not at all Total score: 0 Depression Screening Interpretation: Negative Depression Screening Done: Yes Source: Developed by Drs. Alban Avalos, Arleen Solitario, Kenroy Mosher and colleagues, with an educational sudarshan from [employer]. Thrive Questionnaire Date Thrive assessed: 08/15/24 I am a: Patient What is your living situation today?: I have a steady place to live Within the past 12 months, did the food you bought not last and you didn't have the money to get more?: Sometimes True Within the past 12 months, did you worry whether your food would run out before you got money to buy more?: Sometimes True Do you have trouble paying for medicines?: No Do you have trouble getting transportation to medical appointments?: No Do you have trouble paying your heating and electricity bill?: No Do you have trouble taking care of your child, family member or friend?: No Do you have trouble with day-to-day activities such as bathing, preparing meals, shopping, managing finances, etc.?: No Are you currently unemployed and looking for a job?: No Are you interested in more education?: No Please select the resources that you would like help with: None Currently or been in a relationship where the following occur: No concerns reported THRIVE Score: 2 AUDIT C Alcohol Use Questionnaire (AUDIT-C) 1. How often do you have a drink containing alcohol?: Never Total Score: 0 NAGI-7 AMB Questionnaire NAGI-7 Date NAGI - 7 assessed: 08/20/24 Feeling nervous, anxious, or on edge: 0 = Not at all Not being able to stop or control worryin = Not at all Worrying too much about different things: 0 = Not at all Trouble relaxin = Not at all Being so restless that it is hard to sit still: 0 = Not at all Becoming easily annoyed or irritable: 0 = Not at all Feeling afraid as if something awful might happen: 0 = Not at all Total NAGI-7 score (0-4 normal; 5-9 mild; 10-14 moderate; 15-21 severe): 0 Source: Developed by Drs. Alban Avalos, Arleen Solitario, Kenroy Mosher and colleagues, with an educational sudarshan from [employer]. NAGI-7 Assessment Billing NAGI-7 Assessment Tool: NAGI-7 Assessment 04694 Review of Systems Const Denies body aches, Denies chills, Denies fever(s), Denies headache(s) and Denies poor appetite Eyes Reports no additional complaints ENT Denies dysphagia, Denies dizziness, Denies headache(s) and Denies odynophagia Card Denies chest pain, Denies syncope, Denies edema, Denies irregular heart rhythm, Denies lightheadedness, Denies dyspnea and Reports dyspnea on exertion Resp Denies cough, Denies dyspnea and Reports dyspnea on exertion GI Denies abdominal pain, Denies constipation, Denies dysphagia, Denies diarrhea, Denies nausea, Denies odynophagia and Denies vomiting Reports no additional complaints Musc Reports no additional complaints and Denies abnormal gait Skin/Breast Reports system reviewed and no additional complaints, except as documented Neuro Denies abnormal gait, Denies dizziness, Denies syncope and Denies headache(s) Psych Reports no additional complaints Physical exam (Primary Care) Vital Signs: Last Vital Signs Temp 97.1 F 08/20/24 10:17 Pulse 73 08/20/24 10:17 BP 120/64 08/20/24 10:17 Pulse Ox 96 08/20/24 10:17 Oxygen Delivery Method Room Air 08/20/24 10:17 BMI result Body Mass Index 24.5 Tobacco/Smoking Status: Tobacco use Status Tobacco use date assessed 08/20/24 08/20/24 10:19 Patient Tobacco Use Status Current everyday Tobacco 08/20/24 10:19 Tobacco use type Cigarette 08/20/24 10:19 e-Cigarette/Vaping Use Never Used 08/20/24 10:19 Are you ready to quit: No Tobacco cessation counseling provided: Yes Items discussed: Nicotine replacement Relapse Prevention: discussed extending NRT and discussed dietary, exercise and/or lifestyle changes Number of minutes spent counselin CPT code: 07239 - 4-10 Minutes PHQ-9: PHQ-9 Score PHQ-9: Total score 0 08/20/24 14:41 Depression Screening Interpretation: Negative Thrive Assessment: Date of Thrive Assessment Date Thrive assessed 08/15/24 08/20/24 10:19 Currently or been in a relationship where the following occur: No concerns reported Const General: cooperative, healthy appearing, comfortable and no acute distress Orientation/consciousness: patient oriented x3 HENMT Head: Yes normocephalic Ears: hearing grossly normal bilaterally General nose exam: Normal external nose present Eyes General: appearance normal, both eyes and all related structures Conjunctivae: conjunctivae normal Neck Neck: Yes full ROM and Yes no lymphadenopathy Resp Effort & Inspection: normal respiratory effort Auscultation: clear to auscultation bilaterally, no crackles, no rales, no rhonchi and no wheezes Cardio Rate: regular rate Rhythm: regular rhythm Skin General skin exam: no rashes or lesions noted Neuro General: patient oriented x3 Gait exam (Neuro): Normal gait present Extrem Other: venous stasis dermatitis of rabia LE and 1+ pitting edema - no areas of open skin or ulceration General: Yes normal to inspection, Yes full ROM and No edema Psych Affect: normal affect Attitude: cooperative Insight: Good insight present (Psych) Judgement: Good judgement present (Psych) Coding Level of Care Code Est Pt Level 4 (29479) Diagnoses Hyperlipidemia E78.5 Cerebrovascular accident I63.9 CVA mechanism: unspecified Venous stasis I87.8 Tobacco use disorder F17.200 Shortness of breath R06.02 Additional Codes NAGI-7 Assessment Billing - NAGI-7 Assessment Tool: NAGI-7 Assessment 86036 ([id number]) Vital Signs *Quality* - CPT code: 92439 - 4-10 Minutes ([id number]) Assessment & Plan Assessment & Plan (1) Hyperlipidemia: Code(s): E78.5 - Hyperlipidemia, unspecified Category: Medical Plan: Avoid foods that are high in cholesterol such as red meat, fried foods, eggs and baked goods. Triglyceride goal of less than 150 and LDL goal of less than 70. Not currently on medical management and last LDL was within goal. (2) Cerebrovascular accident: Code(s): I63.9 - Cerebral infarction, unspecified Category: Medical Qualifiers: CVA mechanism: unspecified Qualified Code(s): I63.9 - Cerebral in farction, unspecified Plan: Patient has a history of CVA advised patient to stop smoking. Advised good control of cholesterol, blood sugars and blood pressure. Plan to ordered for repeat blood work patient is no longer following with Neurology. (3) Venous stasis: Code(s): I87.8 - Other specified disorders of veins Category: Medical Plan: Patient has venous stasis dermatitis of bilateral lower extremities. He has been using hydrocortisone cream advised against the use of this cream as it can thin the skin and cause discoloration. Recommended use of Amlactin. I also discussed with the patient the importance of keeping his extremities dry throughout the day recommended use of baby powder to prevent sweating and moisture buildup. He has skin changes in cracking skin of bilateral lower extremities with 1+ pitting edema. No calf pain, tenderness to palpation, redness or warmth bilaterally. Referral was placed to vascular surgery for further evaluation as well. (4) Tobacco use disorder: Code(s): F17.200 - Nicotine dependence, unspecified, uncomplicated Category: Medical Plan: Smoking cigarettes and the use of tobacco can be harmful. We discussed the importance of stopping and options to aid in smoking cessation. Declining nicotine replacement therapy and medication management at this time. Declined lung cancer screening program (5) Shortness of breath: Code(s): R06.02 - Shortness of breath Category: Medical Plan: Patient having dyspnea on exertion plan to obtain chest x-ray, BNP and pulmonary function testing for further evaluation. Consider echocardiogram pending lab work. Plan Appropriate management of the patient's dermatological condition includes substitution of hydrocortisone with a thick hydrating cream to mitigate risks associated with prolonged corticosteroid use. We will promote skin health fu rther by reducing exposure to irritants and moisture in footwear, essential given the patient's history of cellulitis. To address respiratory concerns, a pulmonary test will evaluate the likelihood of COPD, and a vascular consultation will investigate any circulatory insufficiency affecting the lower extremities. A priority is the acquisition of a chest X-ray today to delineate potential pulmonary complications such as fluid in the lungs. My recommendation extends to lifestyle adjustments, particularly emphasizing the benefits of smoking cessation on respiratory and overall health, with assessments to determine success at subsequent appointments. In conclusion, a thorough follow-up plan, integrating diagnostic and preventive strategies, will guide ongoing assessments, enabling tailored medical care. This note was constructed using voice recognition software. While every effort has been made to ensure accuracy and landscape crew member, still areas may have been included sometimes these areas may affect the content or meeting of the given symptoms. Total time spent caring for the patient today was 30 minutes. This includes time spent before the visit reviewing the chart, time spent during the visit, and time spent after the visit and documentation. Patient was informed and verbally consented to the use of an ambient scribe for clinic note documentation during this visit. Orders: Orders PFT pulmonary function test Today F17.200 - Nicotine dependence, unspecified, uncomplicated, R06.02 - Shortness of breath XR chest 2V Today R06.02 - Shortness of breath B Type Natriuretic Peptide Today I87.8 - Other specified disorders of veins, R06.02 - Shortness of breath Referrals Vascular Surgery Referral I87.8 - Other specified disorders of veins Medications: New ammonium lactate 12% (AmLactin) 1 appl topical DAILY 225 grams 1RF
[2024-08-20 10:17] VITALS: BP 120/64; PULSE 73; TEMP 36.2; O2SAT 96; BMI 24.5
--- OUTSIDE RECORDS SUMMARY | 2024-08-20 10:49 | XMS_ITS | Patient Health Record ---
Author Organization [facility] Address [address] [place] [phone] Care Team Providers Care Insulation Board Back Tender Name Role Phone Iván CAZARES, Tello Primary Care Provider Jonesa Alban Painter Unavailable [phone] Allergies Allergen (clinical drug ingredient) Drug/Non Drug Allergy documented on EMR Reaction Allergy Type Onset Date Status Penicillin Unknown Drug Allergy Active Results Component Value Reference Range Notes Pathology Reviewed date:09/13/2023 08:24:21 AM Interpretation: Performing Lab:[facility], [address] [place] [phone] Notes/Report: Name: Ruben Winter Age/Sex: 73/M : 1950 Unit#: [id number] Attend Dr: Alban Gray Re08/22/23 Status : [facility] Location: [facility] Disch: SPEC : [id number] RECD : 08/23/23 STATUS: GABBIE COOPER NUM: [id number] COOPER: 08/22/23-[address] [facility] DR: Alban Gray ENTERED: 08/23/23- [...] MoyCasRuben d Age/Sex: 73/M : 1950 Unit#: [id number] Attend Dr: Alban Gray Re08/22/23 Status : [facility] Location: [facility] Disch: SPEC : [id number] RECD : 08/23/23 STATUS: [facility] NUM: [id number] COOPER: 08/22/23-[address] [facility] DR: Alban Gray ENTERED: 08/23/23-11 [...] [address] [place] [address] Alban Gray [address] [place] [address] [id number] [place] [id number] Signed (si gnature on file) Renan Willson [...] Risk Notes Problem Diverticular disease of colon (689640735) Diverticulosis of large intestine without perforation or abscess without bleeding (K57.30) Active confirmed Problem Abnormal feces (001361098) Positive colorectal cancer screening using Cologuard test (R19.5) Active confirmed Encounters Encounter Location Date Provider Diagnosis [facility] Outpatient [address] [place] [phone] 08/22/2023 Alban Gray Encounter for scre ening [...] [place] [address] [place] [address] [id number] ANDREW WINTER Self - patient is the insured MEDICAID OF [facility] [address] [place] [phone] [id number] ANDREW WINTER Self - patient is the insured Medical (General) History Medical History History ICD Code CVA in 2020--residual left hand weakness Denies WA,DM,Lung disease,renal disease + Cologuard in 03/2023 Lower extremity edema Periumbilical abdominal wall hernia Surgical History Surgery Date(Month/Year) Tonsils Hospitalization History Reason Date(Month/Year)
== END 2024-08-20 10:56 | disposition home or self-care (01) ==
DX: E78.5 Hyperlipidemia, unspecified (principal); I63.9 Cerebral infarction, unspecified; I87.8 Other specified disorders of veins; F17.200 Nicotine dependence, unspecified, uncomplicated; R06.02 Shortness of breath

== ENCOUNTER 2024-08-20 09:56 | Outpatient (REF) | payer MEDICARE, MEDICAID, SELFPAY ==
--- NOTE | ~2024-08-20 | XR_ITS ---
EXAMINATION: XR CHEST CLINICAL INFORMATION: R06.02 - Shortness of breath COMPARISON: April 08, 2020 TECHNIQUE: 2 views of the chest were obtained. FINDINGS: Heart size is within normal limits. Density projecting over the lower lungs bilaterally is related to overlying soft tissue. There is minimal linear density in the left lung base. Osseous structures are otherwise unremarkable. XR/XR chest 2V IMPRESSION: Minimal left basilar atelectasis. Electronically signed by: Gilmer Fonseca MD 08/20/2024 11:45 AM EDT
[2024-08-20 11:58] LABS: B Type Natriuretic Peptide 59 pg/mL (<100)
== END 2024-08-20 09:57 | disposition home or self-care (01) ==
LOC: HO.XRAY 09:56
DX: R06.02 Shortness of breath (principal); I87.8 Other specified disorders of veins; E78.5 Hyperlipidemia, unspecified; F17.210 Nicotine dependence, cigarettes, uncomplicated; Z86.73 Personal history of transient ischemic attack (TIA), and cerebral infarction without residual deficits
CPT/HCPCS: 36415; 71046; 83880; 96127; 99212

== ENCOUNTER → 2024-08-20 11:16 | Outpatient (BNV) | payer MEDICARE, MEDICAID, SELFPAY | PROVIDERS: Visit Provider Radiology Diagnostic Radiology | DX: R06.02 Shortness of breath (principal) | CPT/HCPCS: 71046 ==

== ENCOUNTER 2024-08-28 10:49 | Outpatient (AMB) | payer MEDICARE, MEDICAID, SELFPAY ==
--- NOTE | 2024-08-28 10:55 | A.OFFVIS_ITS ---
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 Patient states he has minor swelling. Gets cellulitis on his feet , states it is due to itching ? 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 Complaints include pain/discomfort, swelling of lower extremities, itchiness, and heaviness of the lower extremities. It has been affecting their daily activities including walking, standing, and physical activity; it is also noted that he has been getting periods of increased shortness of breath upon exertion, which has been affecting his ability to walk/perform any physical activity. It is noted more so in the left leg. He is not a diabetic. He is an everyday 1/2ppd smoker and has smoked for almost 60y. There is hx of BC and no family hx of clotting disorders. 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 He states he sometimes gets weeping in his lower extremities. His previous PCP diagnosed him with varicose eczema. He has been using hydrocortisone cream daily, which has since been discontinued. Patient denies any previous venous surgery or injections. Patient denies any history of DVT/ PE. Patient denies any history of phlebitis. Trial of compression includes - elevation and compression socks help a little They now present for vascular evaluation regarding their varicose veins. [facility] Medical History Hyperlipidemia Cerebral aneurysm Surgical History No history of previous surgery Family History Mother No problems noted. Other Stroke Social History Household Members: Family Housing: House Do you presently have visiting nurse or other home services: No Alcohol intake: never Patient Tobacco Use Status: Current everyday Tobacco user Tobacco use type: Cigarette Cigarette Packs Per Day: 0.5 Cigarettes Per Day: 10 Years Smoked: 55 e-Cigarette/Vaping Use: Never Used Second Hand Smoke Exposure: Yes service: No Current occupational status: retired Cognitive needs: No Hearing needs: No Vision needs: Yes (glasses) Review of Systems Const Reports as per HPI and Denies weakness ENT Reports Normal hearing present and Denies dizziness Card Reports as per HPI, Denies chest pain, Denies chest pain at rest, Denies chest pain with activity, Denies dyspnea and Denies dyspnea on exertion Resp Reports as per HPI, Denies cough, Denies dyspnea and Denies dyspnea on exertion GI Reports as per HPI, Denies abdominal pain, Denies nausea and Denies vomiting Musc Denies numbness Skin/Breast Reports as per HPI, Denies erythema and Denies wounds Neuro Reports Normal hearing present, Denies dizziness, Denies numbness, Denies Sensory deficit (Neuro) and Denies weakness Psych Reports no additional complaints Endo Reports no additional complaints Physical Exam Const General: healthy appearing and no acute distress Orientation/consciousness: patient oriented x3 HEENT Head: Yes normal to inspection Ears: hearing grossly normal bilaterally Mouth: Normal oral and palatal mucosa present Resp Effort & Inspection: normal respiratory effort and able to speak in complete sentences Auscultation: clear to auscultation bilaterally Cardio Jugular venous distension: no JVD Rate: regular rate Rhythm: regular rhythm Heart sounds: S1 normal heart sound present and S2 normal heart sound present Bruits: no abdominal aortic bruits, no carotid bruits, no femoral bruits and no renal bruits Peripheral pulses: Peripheral pulses 2+ throughout GI Inspection: Yes normal to inspection Palpation (GI): No Abdominal aortic bruit present Skin General skin exam: no rashes or lesions noted Wounds: no wounds Hair: normal Neuro General: patient oriented x3 Cranial nerves: Yes Normal hearing present Cognition (Neuro): normal cognition Gait exam (Neuro): Normal gait present Motor exam (neuro): 5/5 motor strength present throughout Sensory Exam: No Sensory deficit (Neuro) Extrem Other: Bilateral lower extremities: Deep erythematous discoloration noted from the pretibial area to the toes. +2 pitting edema noted. No varicosities or tortuosities noted. No wounds or lymphorrhea noted today. No cellulitis noted today. Palpable DP pulse. CEAP: C - 4 E - primary A - superficial P - reflux General: Yes normal to inspection, Yes full ROM, Yes capillary refill normal and Yes normal gait Assessment & Plan Assessment & Plan (1) Varicose veins of both lower extremities with inflammation: Code(s): I83.11 - Varicose veins of right lower extremity with inflammation; I83.12 - Varicose veins of left lower extremity with inflammation Category: Medical Plan: Jeremy is presenting today on a referral from his PCP for concerns of bilateral lower extremity swelling, discomfort, and weeping. He likely has some lymphedema as well; we will rule him out for venous insufficiency first and then discuss possible treatments for lymphedema after. In short, the patient has evidence of venous insufficiency. I have discussed the pathophysiology with the patient. In addition I have provided informational material regarding venous disease to the patient. We have discussed conservative measures including compression, elevation, and exercise. I have also provided a handout regarding appropriate use of compression stockings and where to purchase good compression stockings as well; he has worn them in the past but I advised him to get newer ones. I have taken the liberty of ordering venous insufficiency testing with the patient. They will follow up with me after testing. The patient had an opportunity to ask questions regarding the treatment plan. All questions were answered. Imaging studies, laboratory studies and physical exam results were discussed and reviewed in detail. No major barriers to understanding were identified. The patient expressed understanding and agreement with the above treatment plan. The patient is aware they should contact our office by phone for worsening of the current condition or the appearance of new symptoms. Thank you for allowing me to participate in the vascular care of this patient. If you have any questions or concerns regarding the treatment for the above condition please do not hesitate to contact me. The office telephone contact is [phone]. This note is constructed using voice recognition software. While every effort has been made to ensure accuracy, statistician errors may have been included. Thank you for allowing me to participate in the care of your patient. Yours sincerely, AIMEE Win Orders: Orders US venous duplex LE BI 1 Week I83.11 - Varicose veins of right lower extremity with inflammation, I83.12 - Varicose veins of left lower extremity with inflammation Coding Level of Care Code New Pt Level 4 (56612) Diagnoses Varicose veins of both lower extremities with inflammation I83.11; I83.12
--- OUTSIDE RECORDS SUMMARY | 2024-08-28 12:18 | XMS_ITS | Patient Health Record ---
Author Organization [facility] Address [address] [place] [address] Care Team Providers Care Livestock Handler Name Role Phone Tello Minor MD Primary Care Provider Alban Harper [phone] Allergies Allergen (clinical drug ingredient) Drug/Non Drug Allergy documented on EMR Reaction Allergy Type Onset Date Status Penicillin Unknown Drug Allergy Active Reason For Referral No Information Immunizations Vaccine [...] Risk Notes Problem Diverticular disease of colon (222128956) Diverticulosis of large intestine without perforation or abscess without bleeding (K57.30) Active confirmed Problem Abnormal feces (546267249) Positive colorectal cancer screening using Cologuard test (R19.5) Active confirmed Plan Of Treatment Future Test Test Name Order Date COLONOSCOPY 08/10/2023 Insurance Providers Payer Name Payer Address Payer Phone Subscriber Number Group Number Insured Name Patient Relationship to Insured Coverage Start Date Coverage End Date MEDICARE OF [place] [address] [place] [address] [id number] ANDREW JOHNSON Self - patient is the insured MEDICAID OF [facility] [address] [place] [address] [id number] ANDREW JOHNSON Self - patient is the insured Medical (General) History Medical History History ICD Code 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
== END 2024-08-28 11:25 | disposition home or self-care (01) ==
LOC: HO.HVS 10:50
PROVIDERS: Visit Provider Physician Assistant Surgical
DX: I83.11 Varicose veins of right lower extremity with inflammation (principal); I83.12 Varicose veins of left lower extremity with inflammation
CPT/HCPCS: 99204

== ENCOUNTER → 2024-08-28 10:49 | Outpatient (BNVA) | payer MEDICARE, MEDICAID, SELFPAY | PROVIDERS: Visit Provider Physician Assistant Surgical | DX: I83.11 Varicose veins of right lower extremity with inflammation (principal); I83.12 Varicose veins of left lower extremity with inflammation | CPT/HCPCS: 99202 ==

== ENCOUNTER 2024-09-27 10:27 | Outpatient (REF) | payer MEDICARE, MEDICAID, SELFPAY ==
--- NOTE | ~2024-09-27 | US_ITS ---
EXAMINATION: US TRIPLEX LOWER EXTREMITY, BILATERAL CLINICAL INFORMATION: I83.11 - Varicose veins of right lower extremity with inflammation COMPARISON: None. TECHNIQUE: Color flow triplex imaging and compression Doppler was performed to evaluate both the deep and the superficial systems bilaterally. To evaluate the superficial system, the examination was performed in the upright position. Color-flow Doppler ultrasound and compression ultrasound were utilized. In addition, maneuvers were utilized to demonstrate reflux. FINDINGS: 1. DEEP VENOUS ULTRASOUND OF THE RIGHT LOWER EXTREMITY: Common Femoral Vein: Compressible, normal respiratory variation and augmented flow. Femoral Vein: Compressible, normal color flow and augmentation. Popliteal Vein: Compressible, normal augmentation. Deep Reflux: Common femoral vein = 2000 ms Mid femoral vein greater than 2000 ms Popliteal vein greater than 2200 ms 2. SUPERFICIAL ULTRASOUND WITH DOPPLER OF RIGHT LOWER EXTREMITY: GREAT SAPHENOUS VEIN: Saphenofemoral Junction: 1.2 cm; Reflux: 2652 ms Proximal Thigh: #4 cm; Reflux: 1772 ms Mid Thigh: 0.9 cm; Reflux: 2632 ms Distal Thigh: 0.8 cm; Reflux: 2372 ms At Knee: 0.8 cm; Reflux: 2200 ms Below Knee/Proximal Calf: 0.6 cm; Reflux: 2600 ms Mid Calf: 0.5 cm; Reflux: 2400 ms Ankle/Distal Calf: 0.5 cm; Reflux: 0 ms Lateral accessory GREAT SAPHENOUS VEIN: Saphenofemoral Junction: 0.3 cm; Reflux: 0 ms DUPLICATED MEDIAL GREAT SAPHENOUS VEIN: Diameter: None imaged Reflux: NA DUPLICATED LATERAL GREAT SAPHENOUS VEIN: Diameter: None imaged Reflux: NA SMALL SAPHENOUS VEIN: Drainage: Thigh Saphenopopliteal Junction: 0.2 cm; Reflux: 0 ms Mid calf: 0.2 cm; Reflux: 0 ms Distal: 0.3 cm; Reflux: 0 ms VEIN OF GIACOMINI: Size: NA cm Reflux: NA ms PERFORATORS: Location: Small saphenous vein, distal calf Size: 0.3 cm Reflux: 0 ms Location: 35 cm cephalad to calcaneus Size: 0.3 cm Reflux: 1300 ms VARICOSITIES > 3mm: Location: Mid thigh Size: 0.5 cm Reflux: 832 ms Location: Mid thigh Size: 0.6 cm Reflux: 1300 ms Location: Proximal calf Size: 0.6 cm Reflux: 0 ms Location: Proximal calf Size: 0.4 cm Reflux: 0 ms Location: Mid calf Size: 0.8 cm Reflux: 844 ms 3. DEEP VENOUS ULTRASOUND OF THE LEFT LOWER EXTREMITY: Common Femoral Vein: Compressible, normal respiratory variation and augmented flow. Femoral Vein: Compressible, normal color flow and augmentation. Popliteal Vein: Compressible, normal augmentation. Deep Reflux: Femoral vein = 1900 ms Popliteal vein: > 2500 ms 4. SUPERFICIAL ULTRASOUND WITH DOPPLER OF LEFT LOWER EXTREMITY: GREAT SAPHENOUS VEIN: Saphenofemoral Junction: 0.8 cm; Reflux: 0 ms Proximal Thigh: 0.3 cm; Reflux: 2300 ms Mid Thigh: 0.3 cm; Reflux: 1200 ms Distal Thigh: 0.2 cm; Reflux: >2900 ms At Knee: 0.2 cm; Reflux: 0 ms Below Knee/Proximl calf: 0.2 cm; Reflux: 0 ms Mid Calf: 0.2 cm; Reflux: 0 ms Distal Calf/Ankle: 0.3 cm; Reflux: 0 ms Medial accessory GREAT SAPHENOUS VEIN: Saphenofemoral Junction: 3 cm; Reflux: 0 ms DUPLICATED MEDIAL GREAT SAPHENOUS VEIN: Diameter: None imaged cm Reflux: NA ms DUPLICATED LATERAL GREAT SAPHENOUS VEIN: Diameter: None imaged. cm Reflux: NA ms SMALL SAPHENOUS VEIN: Drainage: Popliteal vein Saphenopopliteal Junction: 29 cm; Reflux: 0 ms Proximal: 0.5 cm; Reflux: 2000 ms Distal: 0.4 cm; Reflux: 0 ms VEIN OF GIACOMINI: Size: NA Reflux: NA PERFORATORS: Location: Proximal thigh Size: 0.2 cm Reflux: 0 ms Location: Proximal thigh Size: 0.2 cm Reflux: 0 ms Location: At knee Size: 0.5 cm Reflux: 0 ms Location: Proximal calf Size: 0.3 cm Reflux: 0 ms VARICOSITIES > 3mm: None US/US venous duplex LE BI IMPRESSION: Right: Venous incompetence, both deep and superficial, and varicosities as detailed above. Left: Venous incompetence, both deep and superficial, as detailed above. Electronically signed by: Gilmer Fonseca MD 09/27/2024 11:58 AM EDT
--- OUTSIDE RECORDS SUMMARY | 2024-09-27 10:58 | XMS_ITS | Patient Health Record ---
Author Organization [facility] Address [address] [place] [address] Care Team Providers Care Steam Plant Operator Name Role Phone Tello Minor MD Primary Care Provider Alban Harper [phone] Allergies Allergen (clinical drug ingredient) Drug/Non Drug [...] Risk Notes Problem Diverticular disease of colon (454224481) Diverticulosis of large intestine without perforation or abscess without bleeding (K57.30) Active confirmed Problem Abnormal feces (773237914) Positive colorectal cancer screening using Cologuard test (R19.5) Active confirmed Plan Of Treatment Future Test Test Name Order Date COLONOSCOPY 08/10/2023 Insurance Providers Payer Name Payer Address Payer Phone Subscriber Number Group Number Insured Name Patient Relationship to Insured Coverage Start Date Coverage End Date MEDICARE OF [place] [address] [place] [address] [id number] ANDREW JOHNSON Self - patient is the insured MEDICAID OF [facility] [address] [place] [phone] [id number] ANDREW JOHNSON Self - patient is the insured Medical (General) History Medical History History ICD Code CVA in 2020--residual left hand weakness Denies IN,DM,Lung disease,renal disease + Cologuard in 03/2023 Lower extremity edema Periumbilical abdominal wall hernia Surgical History Surgery Date(Month/Year) Tonsils Hospitalization History Reason Date(Month/Year)
== END 2024-09-27 10:28 | disposition home or self-care (01) ==
LOC: HO.US 10:27
PROVIDERS: Visit Provider Physician Assistant Surgical
DX: I83.11 Varicose veins of right lower extremity with inflammation (principal); I83.12 Varicose veins of left lower extremity with inflammation
CPT/HCPCS: 93970

== ENCOUNTER → 2024-09-27 10:29 | Outpatient (BNV) | payer MEDICARE, MEDICAID, SELFPAY | PROVIDERS: Visit Provider Radiology Diagnostic Radiology | DX: I83.11 Varicose veins of right lower extremity with inflammation (principal); I83.12 Varicose veins of left lower extremity with inflammation | CPT/HCPCS: 93970 ==

== ENCOUNTER 2024-10-22 11:17 | Outpatient (AMB) | payer MEDICARE, MEDICAID, SELFPAY ==
--- NOTE | 2024-10-22 11:22 | MHC.PC.OV ---
Vital Signs 10/22/24 11:24 Height 5 ft 10 in Weight 168 lb 8 oz BMI 24.2 BP 130/64 Blood Pressure Location Lt brachial Position Sitting Pulse 71 Pulse Source Pulse Oximeter Pulse Oximetry (%) 96 Oxygen Delivery Method Room Air Intake Visit Reasons: f/u chronic conditions Program Support Assistant Required: No Accompanied by: Self / Same As Patient Allergies Penicillins Allergy (Unknown, Verified 10/22/24 11:48) Unknown Medication List - Last Reconciled 10/22/24 by Juliette Rao PA-C ammonium lactate 12% (AmLactin) 1 appl topical DAILY Tobacco use date assessed: 10/22/24 Fall risk assessment: No Falls in past year Last assessed Fall Risk: 10/22/24 Dental Screening Dental Screen Date: 10/22/24 Did you have a dental visit in the last 12 months?: Yes Did you have a dental problem in the last 6 months where you did not have access to dental care?: No Was dental information given to patient?: Patient has dentist HPI f/u chronic conditions HPI Details 74-year-old male with past medical history of CVA, hyperlipidemia last seen 08/2024 coming in for follow up. In review of the notes, patient was seen by vascular surgery for venous insufficiency who recommended compression stockings, elevation and exercise and venous insufficiency testing was ordered. Venous duplex revealed rabia venous incompetence. Presenting with management of varicose eczema, lymphedema, and venous incompetence, along with evaluation of shortness of breath. The patient was referred to vascular surgery, where imaging revealed complete venous incompetence in both legs, contributing to significant leg swelling. The patient has been advised to use compression stockings and elevate the legs to manage swelling, but reports using the same socks for 20 years. His leg swelling has gone down since last visit and is now back to a normal size of shoes. Shortness of breath has been persistent, with a pulmonary function test scheduled to assess for potential COPD. The patient has a history of smoking since age 15, currently smoking half a pack per day, and has attempted cessation in the past without success. [facility] Medical History Hyperlipidemia Cerebral aneurysm Surgical History No history of previous surgery Family History Mother No problems noted. Other Stroke Social History Household Members: Family Housing: House Do you presently have visiting nurse or other home services: No Alcohol intake: never Patient Tobacco Use Status: Current everyday Tobacco user Tobacco use type: Cigarette Cigarette Packs Per Day: 0.5 Cigarettes Per Day: 10 Years Smoked: 55 e-Cigarette/Vaping Use: Never Used Second Hand Smoke Exposure: Yes service: No Current occupational status: retired Cognitive needs: No Hearing needs: No Vision needs: Yes (glasses) Questionnaire Thrive Questionnaire Date Thrive assessed: 10/22/24 I am a: Patient What is your living situation today?: I have a steady place to live Within the past 12 months, did the food you bought not last and you didn't have the money to get more?: Sometimes True Within the past 12 months, did you worry whether your food would run out before you got money to buy more?: Sometimes True Do you have trouble paying for medicines?: No Do you have trouble getting transportation to medical appointments?: No Do you have trouble paying your heating and electricity bill?: No Do you have trouble taking care of your child, family member or friend?: No Do you have trouble with day-to-day activities such as bathing, preparing meals, shopping, managing finances, etc.?: No Are you currently unemployed and looking for a job?: No Are you interested in more education?: No Please select the resources that you would like help with: None Currently or been in a relationship where the following occur: No concerns reported THRIVE Score: 2 NAGI-7 AMB Questionnaire NAGI-7 Date NAGI - 7 assessed: 08/20/24 Source: Developed by Drs. Alban Avalos, Arleen Solitario, Kenroy Mosher and colleagues, with an educational sudarshan from [employer]. Review of Systems Const Denies body aches, Denies chills, Denies fever(s), Denies headache(s) and Denies poor appetite Eyes Reports no additional complaints ENT Denies dizziness and Denies headache(s) Card Denies chest pain, Denies edema, Denies lightheadedness and Denies dyspnea Resp Denies cough and Denies dyspnea GI Denies nausea and Denies vomiting Reports no additional complaints Musc Reports no additional complaints and Denies abnormal gait Skin/Breast Reports system reviewed and no additional complaints, except as documented Neuro Denies abnormal gait, Denies dizziness and Denies headache(s) Psych Reports no additional complaints Physical exam (Primary Care) Vital Signs: Last Vital Signs Pulse 71 10/22/24 11:24 BP 130/64 10/22/24 11:24 Pulse Ox 96 10/22/24 11:24 Oxygen Delivery Method Room Air 10/22/24 11:24 BMI result Body Mass Index 24.2 Tobacco/Smoking Status: Tobacco use Status Tobacco use date assessed 10/22/24 10/22/24 11:30 Patient Tobacco Use Status Current everyday Tobacco 10/22/24 11:30 Tobacco use type Cigarette 10/22/24 11:30 e-Cigarette/Vaping Use Never Used 10/22/24 11:30 Thrive Assessment: Date of Thrive Assessment Date Thrive assessed 10/22/24 10/22/24 11:30 Currently or been in a relationship where the following occur: No concerns reported Const General: cooperative, healthy appearing, comfortable and no acute distress Orientation/consciousness: patient oriented x3 HENMT Head: Yes normocephalic Ears: hearing grossly normal bilaterally General nose exam: Normal external nose present Eyes General: appearance normal, both eyes and all related structures Conjunctivae: conjunctivae normal Neck Neck: Yes full ROM and Yes no lymphadenopathy Resp Effort & Inspection: normal respiratory effort Auscultation: clear to auscultation bilaterally, no crackles, no rales, no rhonchi and no wheezes Cardio Rate: regular rate Rhythm: regular rhythm Skin General skin exam: no rashes or lesions noted Neuro General: patient oriented x3 Gait exam (Neuro): Normal gait present Extrem General: Yes normal to inspection, Yes full ROM and No edema Psych Affect: normal affect Attitude: cooperative Insight: Good insight present (Psych) Judgement: Good judgement present (Psych) Coding Level of Care Code Est Pt Level 4 (59185) Diagnoses Hyperlipidemia E78.5 Cerebrovascular accident I63.9 CVA mechanism: unspecified Venous stasis I87.8 Tobacco use disorder F17.200 Shortness of breath R06.02 Assessment & Plan Assessment & Plan (1) Hyperlipidemia: Code(s): E78.5 - Hyperlipidemia, unspecified Category: Medical Plan: Avoid foods that are high in cholesterol such as red meat, fried foods, eggs and baked goods. Triglyceride goal of less than 150 and LDL goal of less than 70. Not currently on medical management and last LDL was within goal. (2) Cerebrovascular accident: Code(s): I63.9 - Cerebral infarction, unspecified Category: Medical Qualifiers: CVA mechanism: unspecified Qualified Code(s): I63.9 - Cerebral infarction, unspecified Plan: Patient has a history of CVA advised patient to stop smoking. Advised good control of cholesterol, blood sugars and blood pressure. Plan to ordered for repeat blood work patient is no longer following with Neurology. (3) Venous stasis: Code(s): I87.8 - Other specified disorders of veins Category: Medical Plan: Patient continues to follow with vascular surgery most recent imaging showing incompetency of veins in bilateral legs. Appointment 11/13/2024 with vascular surgery to discuss treatment options. Continue with compression stockings, leg elevation and exercise as tolerated. Continue with Amlactin (4) Tobacco use disorder: Code(s): F17.200 - Nicotine dependence, unspecified, uncomplicated Category: Medical Plan: Smoking cigarettes and the use of tobacco can be harmful. We discussed the importance of stopping and options to aid in smoking cessation. Declining nicotine replacement therapy and medication management at this time. Declined lung cancer screening program (5) Shortness of breath: Code(s): R06.02 - Shortness of breath Category: Medical Plan: Chest x-ray, BNP reviewed with patient today. Plan for pulmonary function testing. Plan Appropriate management of the patient's dermatological condition includes substitution of hydrocortisone with a thick hydrating cream to mitigate risks associated with prolonged corticosteroid use. We will promote skin health further by reducing exposure to irritants and moisture in footwear, essential given the patient's history of cellulitis. To address respiratory concerns, a pulmonary test will evaluate the likelihood of COPD, and a vascular consultation will investigate any circulatory insufficiency affecting the lower extremities. A priority is the acquisition of a chest X-ray today to delineate potential pulmonary complications such as fluid in the lungs. My recommendation extends to lifestyle adjustments, particularly emphasizing the benefits of smoking cessation on respiratory and overall health, with assessments to determine success at subsequent appointments. In conclusion, a thorough follow-up plan, integrating diagnostic and preventive strategies, will guide ongoing assessments, enabling tailored medical care. This note was constructed using voice recognition software. While every effort has been made to ensure accuracy and numerical control router operator, still areas may have been included sometimes these areas may affect the content or meeting of the given symptoms. Total time spent caring for the patient today was 30 minutes. This includes time spent before the visit reviewing the chart, time spent during the visit, and time spent after the visit and documentation. Patient was informed and verbally consented to the use of an ambient scribe for clinic note documentation during this visit. Medications: Refilled ammonium lactate 12% (AmLactin) 1 appl topical DAILY 225 grams 1RF
[2024-10-22 11:24] VITALS: BP 130/64; PULSE 71; O2SAT 96; BMI 24.2
== END 2024-10-22 12:11 | disposition home or self-care (01) ==
LOC: HO.HMCH 11:18
DX: E78.5 Hyperlipidemia, unspecified (principal); I63.9 Cerebral infarction, unspecified; I87.8 Other specified disorders of veins; F17.200 Nicotine dependence, unspecified, uncomplicated; R06.02 Shortness of breath

== ENCOUNTER → 2024-10-22 11:17 | Outpatient (BNVA) | payer MEDICARE, MEDICAID, SELFPAY | DX: E78.5 Hyperlipidemia, unspecified (principal); I63.9 Cerebral infarction, unspecified; I87.8 Other specified disorders of veins; R06.02 Shortness of breath; F17.200 Nicotine dependence, unspecified, uncomplicated; Z71.6 Tobacco abuse counseling | CPT/HCPCS: 99212 ==

== ENCOUNTER 2024-11-09 10:48 | Outpatient (REF) | payer MEDICARE, MEDICAID, SELFPAY ==
--- OUTSIDE RECORDS SUMMARY | 2023-08-22 08:50 | XMS_ITS ---
Author Organization [facility] Address [address] [place] [phone] Care Team Providers Care Crm Specialist Name Role Phone Tello Minor MD Primary Care Provider Jonesa Alabn Painter Unavailable [phone] REASON FOR VISIT positive colon cancer screening using cologuard, Problems Problem Type SNOMED Code ICD Code Onset Dates Problem Status W/U Status Risk Notes Problem Diverticular disease of colon (054524827) Diverticulosis of large intestine without perforation or abscess without bleeding (K57.30) Active confirmed Encounters Encounter Location Date Provider Diagnosis [facility] Outpatient [address] [place] [phone] 08/22/2023 Alban Gray Encounter for scre ening [...] Information Progress Notes * ANDREW JOHNSON JrDOB: (74 yo M)Acc No.[id number]:08/22/2023 COLON WITH MAC Patient: ANDREW LEVINE Jr Provider: Jesse Gray MD :1950 A ge:73 Y S ex:Male Date:08/22/2023 Address:[address] [place], [place] [phone] Pcp:Tello Minor MD Subjective: * Chief Complaints: [...] MD Date: 0 08/22/2023 Generated for Angelina gama/Juan/Jmitting on: 0 11/09/2024 11:27 AM EDT
--- NOTE | 2024-11-09 10:59 | PFT_ITS ---
Flows: FEV1: 53 % of predicted at 1.62 L FVC: 81 % of predicted at 3.31 L FEV1/FVC: 49 % Bronchodilator response: Absent Volumes: Total lung capacity: 78 % of predicted at 5.57 L Residual volume: 85 % of predicted at 2.27 L Slow vital capacity: 77 % of predicted at 3.31 L Expiratory reserve volume: 58 % of predicted at 0.72 L Diffusion capacity: Moderately decreased, adjusts to being mildly decreased after correction for alveolar ventilation. Impression: Combined moderate obstructive and restrictive ventilatory defects with no bronchodilator response. Decreased expiratory reserve volume suggests extrathoracic restriction likely secondary to abdominal obesity. Combination of decreased diffusion capacity with restrictive ventilatory defect suggests underlying pulmonary parenchymal disease. Clinical correlation is advised. MTDD
--- OUTSIDE RECORDS SUMMARY | 2024-11-09 11:28 | XMS_ITS | Patient Health Record ---
Author Organization [facility] Address [address] [place] [address] Care Team Providers Care Building Contractor Name Role Phone Tello Minor MD Primary Care Provider Alban Harper [phone] Allergies Allergen (clinical drug ingredient) Drug/Non Drug [...] Risk Notes Problem Diverticular disease of colon (026968334) Diverticulosis of large intestine without perforation or abscess without bleeding (K57.30) Active confirmed Problem Abnormal feces (532050513) Positive colorectal cancer screening using Cologuard test (R19.5) Active confirmed Plan Of Treatment Future Test Test Name Order Date COLONOSCOPY 08/10/2023 Insurance Providers Payer Name Payer Address Payer Phone Subscriber Number Group Number Insured Name Patient Relationship to Insured Coverage Start Date Coverage End Date MEDICARE OF [place] [address] ABBY MALIK [address] [phone] [id number] ANDRWE JOHNSON Self - patient is the insured MEDICAID OF [facility] [address] [place] [address] [id number] ANDREW JOHNSON Self - patient is the insured Medical (General) History Medical History History ICD Code 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
[2024-11-09 11:36] VITALS: PULSE 72; O2SAT 97
== END 2024-11-09 10:49 | disposition home or self-care (01) ==
LOC: HO.RESP 10:48
DX: R06.02 Shortness of breath (principal); F17.200 Nicotine dependence, unspecified, uncomplicated
CPT/HCPCS: 94010; 94640; 94727; 94729

== ENCOUNTER → 2024-11-09 10:59 | Outpatient (BNV) | payer MEDICARE, MEDICAID, SELFPAY | PROVIDERS: Visit Provider Internal Medicine Pulmonary Disease | DX: J98.4 Other disorders of lung (principal) | CPT/HCPCS: 94060; 94727; 94729 ==

== ENCOUNTER 2024-11-13 10:52 | Outpatient (AMB) | payer MEDICARE, MEDICAID, SELFPAY ==
--- NOTE | 2024-11-13 10:59 | A.OFFVIS_ITS ---
Intake Visit Reasons: follow up s/p US Intake Note: Patient presents for follow up US. He has bilateral swelling. Accompanied by: Self / Same As Patient Allergies Penicillins Allergy (Unknown, Verified 11/13/24 11:00) Unknown [facility] follow up s/p US : Details: Pleasant 74-year-old gentleman presents for follow-up regarding venous in sufficiency. He has significantly swollen lower extremities right more so than left. There has been serous drainage. He has significant skin discoloration and excoriated areas. He has actually been treated for bouts of cellulitis as well. He now presents for follow-up with venous insufficiency testing. [facility] Medical History Hyperlipidemia Cerebral aneurysm Surgical History No history of previous surgery Family History Mother No problems noted. Other Stroke Social History Household Members: Family Housing: House Do you presently have visiting nurse or other home services: No Alcohol intake: never Patient Tobacco Use Status: Current everyday Tobacco user Tobacco use type: Cigarette Cigarette Packs Per Day: 0.5 Cigarettes Per Day: 10 Years Smoked: 55 e-Cigarette/Vaping Use: Never Used Second Hand Smoke Exposure: Yes service: No Current occupational status: retired Cognitive needs: No Hearing needs: No Vision needs: Yes (glasses) Review of Systems Const Reports as per HPI ENT Reports no additional complaints Card Denies chest pain, Denies chest pain at rest and Denies chest pain with activity Resp Denies chest congestion and Denies cough GI Reports no additional complaints Musc Details: pain over varicosities, aching of lower extremities, swelling, cramping, heaviness and tiredness, itching Denies abnormal gait Skin/Breast Reports pruritus and Denies wounds Neuro Reports no additional complaints and Denies abnormal gait Psych Denies no additional complaints Physical Exam Const General: cooperative, healthy appearing and comfortable Orientation/consciousness: oriented to person, oriented to place and oriented to time Neck Carotids: no bruits Chest Chest palpation & inspection: normal inspection of the chest and normal palpation of entire chest wall Resp Effort & Inspection: normal respiratory effort and able to speak in complete sentences Cardio Rate: regular rate Heart sounds: S1 normal heart sound present and S2 normal heart sound present Peripheral pulses: Peripheral pulses 2+ throughout GI Inspection: Yes normal to inspection Skin Other: +2 edema, large rope-like varicosities greater than 4 mm CEAP Classification C4 - skin color changes Ep - Etiology Primary As - superficial veins P - reflux General skin exam: dry skin Neuro General: oriented to person, oriented to place and oriented to time Extrem Right lower extremity: full ROM, normal capillary refill and edema Left lower extremity: full ROM, normal capillary refill and edema Psych Mental Status: mental status grossly normal Results Reviewed Results Reviewed: Brief summary of venous insufficiency testing is as follows: right great saphenous vein: Positive right small saphenous vein: negative right accessory vein: none present left great saphenous vein: Positive left small saphenous vein: Positive left accessory vein: none present Please note there is no evidence of any venous aneurysms or significant tortuosity Assessment & Plan Assessment & Plan (1) Varicose veins of right lower extremity with inflammation: Code(s): I83.11 - Varicose veins of right lower extremity with inflammation Category: Medical Plan: This patient has varicose veins with inflammation. They continue to be a source of discomfort for the patient. The patient has tried conservative treatment with compression, leg elevation and exercise program for over 3 months time. They have been compliant with all treatment. This has provided minimal relief for the patient. I do not anticipate this course of treatment will alter the underlying etiology. The patient has been scheduled for lower extremity venous treatment inclusive of --- right great saphenous vein radiofrequency ablation.. Risks, benefits, and complications of this procedure has been discussed in detail with the patient including but not limited to bleeding, infection, and the development of a DVT. The patient has demonstrated a clear understanding and has consented. The patient did want to think about the procedure and will reach out back out to us as soon as he wants to schedule. I did discuss that this would be significantly beneficial for him due to the overall status of his legs. Thank you for allowing us to assist in his care. If there are any questions or concerns please do not hesitate to contact us. Coding Level of Care Code Est Pt Level 4 (99487) Diagnoses Varicose veins of right lower extremity with inflammation I83.11
== END 2024-11-13 12:00 | disposition home or self-care (01) ==
LOC: HO.HVS 10:55
PROVIDERS: Visit Provider Surgery Vascular Surgery
DX: I83.11 Varicose veins of right lower extremity with inflammation (principal)
CPT/HCPCS: 99214

== ENCOUNTER → 2024-11-13 10:52 | Outpatient (BNVA) | payer MEDICARE, MEDICAID, SELFPAY | PROVIDERS: Visit Provider Surgery Vascular Surgery | DX: I83.11 Varicose veins of right lower extremity with inflammation (principal) | CPT/HCPCS: 99212 ==

== ENCOUNTER 2024-11-30 10:03 | Outpatient (AMB) | payer MEDICARE, MEDICAID, SELFPAY ==
[2024-11-30 10:04] VITALS: BMI 24.1
--- NOTE | 2024-11-30 10:04 | MHC.OFFVIS ---
Vital Signs 11/30/24 10:04 Height 5 ft 10 in Weight 168 lb BMI 24.1 Intake Visit Reasons: Right GSV RFA Anaesthetic Technician Required: No Accompanied by: Self / Same As Patient Allergies Penicillins Allergy (Unknown, Verified 11/30/24 10:04) Unknown [facility] Medical History Hyperlipidemia Cerebral aneurysm Surgical History No history of previous surgery Family History Mother No problems noted. Other Stroke Social History Household Members: Family Housing: House Do you presently have visiting nurse or other home services: No Alcohol intake: never Patient Tobacco Use Status: Current everyday Tobacco user Tobacco use type: Cigarette Cigarette Packs Per Day: 0.5 Cigarettes Per Day: 10 Years Smoked: 55 e-Cigarette/Vaping Use: Never Used Second Hand Smoke Exposure: Yes service: No Current occupational status: retired Cognitive needs: No Hearing needs: No Vision needs: Yes (glasses) Physical Exam Vital Signs: BMI result Body Mass Index 24.1 Office Procedures Vascular Office Procedure Details Details: Diagnosis: Varicose veins with inflammation of right leg Procedure: Endovenous radiofrequency ablation of the right great saphenous vein(s) of the lower extremity. Anesthesia: Local infiltration 5 cc, Tumescent 400 cc. Estimated Blood Loss: minimal Specimen: Varicose veins The patient was transferred to the procedure suite and the insufficient saphenous vein was mapped by ultrasound and diagrammed on the overlying skin. The depth and diameter of the vein(s) to be treated was documented. The varicose tributary veins and suitable access sites were identified and mapped as well. The patient was then positioned supine on the procedure table. The affected limb was prepped and draped in the usual sterile fashion. The RF catheter was placed on the sterile field, flushed and wiped down, prepared, and connected by a sterile cable. The patient was placed in supine position and local anesthesia was instilled in the skin overlying the access site. A skin incision was made overlying the identified and mapped great saphenous vein entry site. The vein was accessed using ultrasound guidance and the Seldinger technique, a guide wire was introduced through the needle, which was then exchanged over the guide wire for a 6F sheath, which was secured in place. The guide wire was removed and the sheath was flushed. The RF catheter was placed into the vein through the sheath and preferentially, imaging was used to place the catheter tip just inferior to the superficial epigastric vein to preserve normal physiological flow in that vein. Additionally, it was confirmed by ultrasound guidance that the catheter tip was also placed a minimum of 1.5cm distal to the saphenofemoral junction. After the RF catheter position was verified by ultrasound, tumescent anesthesia was infiltrated, under ultrasound guidance, precisely into the perivenous compartment along the entire length of vein from the entry site to the saphenofemoral junction until a halo of fluid was noted around the vein. The patient was then placed in supine position to further exsanguinate the superficial venous system. After RF catheter position was again confirmed with ultrasound imaging, and under direct external compression along the length of the heating element, RF energy was applied. The vein was segmentally ablated by heating a 8 cm segment and then indexing the catheter forward by 7.5 cm until the treatment length is completed. Device temperature was maintained at 120 plus or minus 5 degrees C with an initial power level of 40W dropping to below 20W for each treatment. Total vein length treated 40 cm Total cycles of RF 6. Repeat ultrasound of the saphenous vein was performed, confirming successful treatment. The catheter and sheath were withdrawn and hemostasis established with direct pressure. After assuring hemostasis, the skin incision over the saphenous vein was closed with a bandage and a compression wrap, and/ or graduated compression stocking was applied from the level of the foot to the most proximal level of the thigh. 92612 - Endoven Ther Chem Adhes 1st All charges added?: Procedure code (CPT) selection complete Assessment & Plan Assessment & Plan (1) Varicose veins of right lower extremity with inflammation: Comment: 11/30/2024 - right great saphenous vein radiofrequency ablation Code(s): I83.11 - Varicose veins of right lower extremity with inflammation Category: Medical Plan: See op note Coding Level of Care Code Procedure Only Diagnoses Varicose veins of right lower extremity with inflammation I83.11 CPT Codes Details - Vascular 3: 66517 - Endoven Ther Chem Adhes 1st ([id number])
== END 2024-11-30 10:56 | disposition home or self-care (01) ==
LOC: HO.HVS 10:04
PROVIDERS: Visit Provider Surgery Vascular Surgery
DX: I83.11 Varicose veins of right lower extremity with inflammation (principal)
CPT/HCPCS: 36482

== ENCOUNTER → 2024-11-30 10:03 | Outpatient (BNVA) | payer MEDICARE, MEDICAID, SELFPAY | PROVIDERS: Visit Provider Surgery Vascular Surgery | DX: I83.11 Varicose veins of right lower extremity with inflammation (principal) | CPT/HCPCS: 36475; 36482; J2003; J2004 ==

== ENCOUNTER 2024-12-20 13:43 | Outpatient (AMB) | payer MEDICARE, MEDICAID, SELFPAY ==
--- NOTE | 2024-12-20 13:44 | MHC.OFFVIS ---
Intake Visit Reasons: 2 wk follow up Right GSV RFA 12/07/24 Intake Note: 2 week follow up Right GSV RFA 11/30/24, pt states no changes that hes noticed since the procedure License And Permit Specialist Required: No Accompanied by: Self / Same As Patient Allergies Penicillins Allergy (Unknown, Verified 12/20/24 13:51) Unknown HPI HPI 2 wk follow up Right GSV RFA 12/07/24: Details: The patient is a 74-year-old male presenting with a follow-up visit after right great saphenous vein radiofrequency ablation. The procedure was performed on 12/07/2024 to address venous insufficiency, aiming to improve venous return and reduce swelling in the right leg. Post-procedure, the patient reports a slight reduction in swelling of the right leg, although he notes that the eczema has not improved. The patient has been using iyuc-ile-xihzmca hydrocortisone, which was discontinued due to skin thinning, and is now on a prescription lotion that takes time to absorb. The patient also reports a history of significant lymphedema, which previously caused severe swelling and fluid leakage from the legs. He mentions that his feet were so swollen that he required larger shoes, but the leakage has improved significantly. [facility] Medical History Hyperlipidemia Cerebral aneurysm Surgical History No history of previous surgery Family History Mother No problems noted. Other Stroke Social History Household Members: Family Housing: House Do you presently have visiting nurse or other home services: No Alcohol intake: never Patient Tobacco Use Status: Current everyday Tobacco user Tobacco use type: Cigarette Cigarette Packs Per Day: 0.5 Cigarettes Per Day: 10 Years Smoked: 55 e-Cigarette/Vaping Use: Never Used Second Hand Smoke Exposure: Yes service: No Current occupational status: retired Cognitive needs: No Hearing needs: No Vision needs: Yes (glasses) Review of Systems Const Reports as per HPI ENT Reports no additional complaints Card Denies chest pain, Denies chest pain at rest and Denies chest pain with activity Resp Denies chest congestion and Denies cough GI Reports no additional complaints Musc Details: pain over varicosities, aching of lower extremities, swelling, cramping, heaviness and tiredness, itching Denies abnormal gait Skin/Breast Reports pruritus and Denies wounds Neuro Reports no additional complaints and Denies abnormal gait Psych Denies no additional complaints Physical Exam Const General: cooperative, healthy appearing and comfortable Orientation/consciousness: oriented to person, oriented to place and oriented to time Neck Carotids: no bruits Chest Chest palpation & inspection: normal inspection of the chest and normal palpation of entire chest wall Resp Effort & Inspection: normal respiratory effort and able to speak in complete sentences Cardio Rate: regular rate Heart sounds: S1 normal heart sound present and S2 normal heart sound present Peripheral pulses: Peripheral pulses 2+ throughout GI Inspection: Yes normal to inspection Skin Other: +2 edema, large rope-like varicosities greater than 4 mm CEAP Classification C4 - skin color changes Ep - Etiology Primary As - superficial veins P - reflux General skin exam: dry skin Neuro General: oriented to person, oriented to place and oriented to time Extrem Other: Right in cm: Thigh 44.5 Knee 41 Calf 36 Ankle 31 Left in cm: Thigh 45 Knee 41 Calf 36.5 Ankle 31 Right lower extremity: full ROM, normal capillary refill and edema Left lower extremity: full ROM, normal capillary refill and edema Psych Mental Status: mental status grossly normal Assessment & Plan Assessment & Plan (1) Varicose veins of right lower extremity with inflammation: Comment: 11/30/2024 - right great saphenous vein radiofrequency ablation Code(s): I83.11 - Varicose veins of right lower extremity with inflammation Category: Medical Plan: Appears to be doing well after ablation. We will treat for lymphedema (2) Lymphedema: Code(s): I89.0 - Lymphedema, not elsewhere classified Category: Medical Plan: In short the patient has late on sent lymphedema. The patient has been on conservative treatment for at least 3 months with minimal relief. Patient has tried 30 mm of mercury compression garments, elevation, exercise healthy diet and doing manual says self MLD to the best of their ability for over 4 weeks but with no significant relief. She has been compliant with the program but has provided minimal relief. In addition on physical we are noticing hyperpigmentation, lymphorrhea, and hyperplasia. It appears that she has stage 2 lymphedema. Patient has completed multiple forms of conservative therapy yet significant symptoms remain. Patient requires the use of a pneumatic compression device which we will assist in trying to have the patient obtain them. A pneumatic compression device will help reduce swelling and other lymphedema comorbidities. Thank you for allowing us to assist in this patient's care. Coding Level of Care Code Est Pt Level 4 (69453) Diagnoses Varicose veins of right lower extremity with inflammation I83.11 Lymphedema I89.0
== END 2024-12-20 14:22 | disposition home or self-care (01) ==
LOC: HO.HVS 13:44
PROVIDERS: Visit Provider Surgery Vascular Surgery
DX: I83.11 Varicose veins of right lower extremity with inflammation (principal); I89.0 Lymphedema, not elsewhere classified
CPT/HCPCS: 99214

== ENCOUNTER → 2024-12-20 13:43 | Outpatient (BNVA) | payer MEDICARE, MEDICAID, SELFPAY | PROVIDERS: Visit Provider Surgery Vascular Surgery | DX: I83.11 Varicose veins of right lower extremity with inflammation (principal); I89.0 Lymphedema, not elsewhere classified; E78.5 Hyperlipidemia, unspecified; Z72.0 Tobacco use | CPT/HCPCS: 99212 ==

== ENCOUNTER 2025-01-22 11:27 | Outpatient (AMB) | payer MEDICARE, MEDICAID, SELFPAY ==
--- OUTSIDE RECORDS SUMMARY | 2023-08-22 07:50 | XMS_ITS ---
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 Name Role Phone Tello Minor MD Primary Care Provider Jonesa Alban Paitner Unavailable [phone] REASON FOR VISIT positive colon cancer screening using cologuard, Problems Problem Type SNOMED Code ICD Code Onset Dates Problem Status W/U Status Risk Notes Problem Diverticular disease of colon ([id number]) Diverticulosis of large intestine without perforation or abscess without bleeding (K57.30) Active confirmed Encounters Encounter Location Date Provider Diagnosis [facility] [place] Outpatient [address] [place] [id number] 08/22/2023 Alban Gray Encounter for scre ening colonoscopy Z12.11 ; Colon polyps K63.5 ; Heme + stool R19.5 ; Diverticulosis of large intestine without perforation or abscess without bleeding K57.30 and Internal hemorrhoids K64.8 Assessments Encounter Date Diagnosis (ICD Code) Assessment Notes Treatment Notes Treatment Clinical Notes Section Notes 08/22/2023 Encounter for screening colonoscopy (ICD-10 - Z12.11) 08/22/2023 Colon polyps (ICD-10 - K63.5) 08/22/2023 Heme + stool (ICD-10 - R19.5) 08/22/2023 Diverticulosis of large intestine without perforation or abscess without bleeding (ICD-10 - K57.30) 08/22/2023 Internal hemorrhoids (ICD-10 - K64.8) Plan Of Treatment No Information Progress Notes * ANDREW JOHNSON JrDOB: (75 yo M)Acc No.[id number]:08/22/2023 COLON WITH MAC Patient: ANDREW LEVINE Jr Provider: Jesse Gray MD :1950 A ge:73 Y S ex:Male Date:08/22/2023 Address:[address] [place], [place] [id number] Pcp:Tello Minor MD Subjective: * Chief Complaints: * 1 . Positive colon cancer screening using cologuard,. * Medical History: Objective: * Vitals: Assessment: * Assessment: 1. E ncounter for screening colonoscopy - Z12.11 (Primary) 2 . C olon polyps - K63.5 3 . H siva + stool - R19.5 4 . D iverticulosis of large intestine without perforation or abscess without bleeding - K57.30 5 . I nternal hemorrhoids - K64.8 Plan: * Treatment: * Procedure Codes: 4 5385 LESION REMOVAL COLONOSCOPY, Modifiers: PT , 0529F INTRVL 3+YRS PTS CLNSCP DOCD, 0528F RCMND FLW-UP 10 YRS DOCD, Modifiers: 1P * * The named appointment provid er may or may not be the originator of this progress note, and it is not deemed complete until electronically signed by the appointment provider. Sign off status: Pending * Provider: Jesse Gray MD Date: 0 08/22/2023 Generated for Angelina gama/Juan/Sharasmitting on: 1 03/24/2024 01:34 PM EST
[2025-01-22 11:35] VITALS: BP 126/78; PULSE 72; TEMP 36.3; O2SAT 99; BMI 23.8
--- NOTE | 2025-01-22 11:35 | A.OFFPC_ITS ---
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 Accompanied by: Self / Same As Patient Allergies Penicillins Allergy (Unknown, Verified 01/22/25 11:58) Unknown Medication List - Last Reconciled 01/22/25 by Juliette Rao PA-C albuterol sulfate 90 mcg/actuation (Ventolin HFA) 1 inh inhalation QID PRN ammonium lactate 12% (AmLactin) 1 appl topical DAILY Tobacco use date assessed: 10/22/24 Fall risk assessment: No Falls in past year Last assessed Fall Risk: 10/22/24 Dental Screening Dental Screen Date: 01/22/25 Did you have a dental visit in the last 12 months?: No Did you have a dental problem in the last 6 months where you did not have access to dental care?: No Was dental information given to patient?: No HPI f/u chronic conditions 15 min HPI Details 74-year-old male with past medical histo ry of CVA, hyperlipidemia last seen 10/2024 coming in for follow up. In review of the notes, patient was seen by vascular surgery 12/2024 s/p right great saphenous vein radiofrequency ablation 12/07/2024. Recommended pneumatic compression device for lymphedema, doing well after ablation. Patient also had PFT which was suggestive of COPD. Presenting for follow-up of lower extremity edema and COPD, and evaluation of dysphagia. The patient reports that his lower extremity swelling is under control following visits with a vascular surgeon. He has received compression devices and training on how to use them, but has not yet started using them. A recent pulmonary function test was suggestive of COPD. He continues to smoke cigarettes and states he has no interest in quitting. He reports he does not experience shortness of breath daily and has not used his prescribed inhaler. The patient reports a problem with swallowing, which he believes started after a stroke four years ago and has been worsening recently. Symptoms include a post- stroke lip drop and coughing spells with aspiration, particularly when drinking liquids. He has been using a straw to drink since the stroke, as drinking without one makes the issue worse. [facility] Medical History Hyperlipidemia Cerebral aneurysm Surgical History No history of previous surgery Family History Mother No problems noted. Other Stroke Social History Household Members: Family Housing: House Do you presently have visiting nurse or other home services: No Alcohol intake: never Patient Tobacco Use Status: Current everyday Tobacco user Tobacco use type: Cigarette Cigarette Packs Per Day: 0.5 Cigarettes Per Day: 10 Years Smoked: 55 e-Cigarette/Vaping Use: Never Used Second Hand Smoke Exposure: Yes service: No Current occupational status: retired Cognitive needs: No Hearing needs: No Vision needs: Yes (glasses) Questionnaire PHQ-9 Over the last 2 weeks, how often have you been bothered by any of the following problems? 1. Little interest or pleasure in doing things: not at all 2. Feeling down, depressed, or hopeless: not at all 3. Trouble falling or staying asleep, or sleeping too much: not at all 4. Feeling tired or having little energy: not at all 5. Poor appetite or overeating: not at all 6. Feeling bad about yourself - or that you are a failure or have let yourself or your family down: not at all 7. Trouble concentrating on things, such as reading the newspaper or watching television: not at all 8. Moving or speaking so slowly that other people could have noticed. Or the opposite - being so fidgety or restless that you have been moving around a lot more than usual: not at all 9. Thoughts that you would be better off or of hurting yourself in some way: not at all Total score: 0 Depression Screening Interpretation: Negative Depression Screening Done: Yes Source: Developed by Drs. Alban Avalos, Arleen Solitario, Kenroy Mosher and colleagues, with an educational sudarshan from [employer]. Thrive Questionnaire Date Thrive assessed: 08/15/24 I am a: Patient What is your living situation today?: I have a steady place to live Within the past 12 months, did the food you bought not last and you didn't have the money to get more?: Sometimes True Within the past 12 months, did you worry whether your food would run out before you got money to buy more?: Sometimes True Do you have trouble paying for medicines?: No Do you have trouble getting transportation to medical appointments?: No Do you have trouble paying your heating and electricity bill?: No Do you have trouble taking care of your child, family member or friend?: No Do you have trouble with day-to-day activities such as bathing, preparing meals, shopping, managing finances, etc.?: No Are you currently unemployed and looking for a job?: No Are you interested in more education?: No Please select the resources that you would like help with: None Currently or been in a relationship where the following occur: No concerns reported THRIVE Score: 2 AUDIT C Alcohol Use Questionnaire (AUDIT-C) 1. How often do you have a drink containing alcohol?: Never Total Score: 0 NAGI-7 AMB Questionnaire NAGI-7 Date NAGI - 7 assessed: 08/20/24 Source: Developed by Drs. Alban Avalos, Arleen Solitario, Kenroy Mosher and colleagues, with an educational sudarshan from [employer]. Review of Systems Const Denies body aches, Denies chills, Denies fever(s), Denies headache(s) and Denies poor appetite Eyes Reports no additional complaints ENT Reports dysphagia, Denies dizziness, Denies headache(s) and Denies odynophagia Card Denies chest pain, Denies lightheadedness and Denies dyspnea Resp Denies cough and Denies dyspnea GI Denies abdominal pain, Reports dysphagia, Denies nausea, Denies odynophagia and Denies vomiting Reports no additional complaints Musc Reports no additional complaints and Denies abnormal gait Skin/Breast Reports system reviewed and no additional complaints, except as documented Neuro Denies abnormal gait, Denies dizziness and Denies headache(s) Psych Reports no additional complaints Physical exam (Primary Care) Vital Signs: Last Vital Signs Temp 97.3 F 01/22/25 11:35 Pulse 72 01/22/25 11:35 BP 126/78 01/22/25 11:35 Pulse Ox 99 01/22/25 11:35 Oxygen Delivery Method Room Air 01/22/25 11:35 BMI result Body Mass Index 23.8 Tobacco/Smoking Status: Tobacco use Status Tobacco use date assessed 10/22/24 01/22/25 11:38 Patient Tobacco Use Status Current everyday Tobacco 01/22/25 11:38 Tobacco use type Cigarette 01/22/25 11:38 e-Cigarette/Vaping Use Never Used 01/22/25 11:38 PHQ-9: PHQ-9 Score PHQ-9: Total score 0 01/22/25 12:49 Depression Screening Interpretation: Negative Thrive Assessment: Date of Thrive Assessment Date Thrive assessed 08/15/24 01/22/25 11:38 Currently or been in a relationship where the following occur: No concerns reported Const General: cooperative, healthy appearing, comfortable and no acute distress Orientation/consciousness: patient oriented x3 HENMT Head: Yes normocephalic Ears: hearing grossly normal bilaterally General nose exam: Normal external nose present Eyes General: appearance normal, both eyes and all related structures Conjunctivae: conjunctivae normal Neck Neck: Yes full ROM and Yes no lymphadenopathy Resp Effort & Inspection: normal respiratory effort Auscultation: clear to auscultation bilaterally, no crackles, no rales, no rhonchi and no wheezes Cardio Rate: regular rate Rhythm: regular rhythm Skin General skin exam: no rashes or lesions noted Neuro General: patient oriented x3 Gait exam (Neuro): Normal gait present Extrem Other: venous stasis dermatitis rabia without areas of ulceration or open skin General: Yes normal to inspection, Yes full ROM and Yes edema (1+ rabia ) Psych Affect: normal affect Attitude: cooperative Insight: Good insight present (Psych) Judgement: Good judgement present (Psych) Coding Level of Care Code Est Pt Level 3 (78333) Diagnoses Dysphagia R13.10 Hyperlipidemia E78.5 Cerebrovascular accident I63.9 CVA mechanism: unspecified COPD (chronic obstructive pulmonary disease) J44.9 Lymphedema I89.0 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 A barium swallow study will be ordered to determine the level of the swallowing problem. Based on the results, a referral may be made to gastroenterology or speech and language pathology. The option of using liquid thickeners was discussed as a potential management tool pending the results of the diagnostic study. (2) Hyperlipidemia: Code(s): E78.5 - Hyperlipidemia, unspecified Category: Medical Plan: Avoid foods that are high in cholesterol such as red meat, fried foods, eggs and baked goods. Triglyceride goal of less than 150 and LDL goal of less than 70. Plan for repeat blood work (3) Cerebrovascular accident: Code(s): I63.9 - Cerebral infarction, unspecified Category: Medical Qualifiers: CVA mechanism: unspecified Qualified Code(s): I63.9 - Cerebral infarction, unspecified Plan: For CVA patient LDL goal less than 70, blood pressure goal less than 130/80 and better control of blood sugars. Plan for repeat blood work. Declining Neurology (4) COPD (chronic obstructive pulmonary disease): Code(s): J44.9 - Chronic obstructive pulmonary disease, unspecified Category: Medical Plan: For COPD referral was placed to pulmonology. He was prescribed an albuterol inhaler to be used as needed for shortness of breath however he has not had to use it recently. (5) Lymphedema: Code(s): I89.0 - Lymphedema, not elsewhere classified Category: Medical Plan: For lymphedema patient has seen improvement since following with vascular surgery and is awaiting pneumatic compression boots. They were delivered to the day and patient will start therapy tomorrow. Density use ammonium lactate daily and follow up in 3 months. (6) Varicose veins of right lower extremity with inflammation: Comment: 11/30/2024 - right great saphenous vein radiofrequency ablation Code(s): I83.11 - Varicose veins of right lower extremity with inflammation Category: Medical Plan: Doing well postoperatively continue to follow with Dr. Oreilly as needed Plan This note was constructed using voice recognition software. While every effort has been made to ensure accuracy and transcription specialist, still areas may have been included sometimes these areas may affect the content or meeting of the given symptoms. Total time spent caring for the patient today was 25 minutes. This includes time spent before the visit reviewing the chart, time spent during the visit, and time spent after the visit and documentation. Patient was informed and verbally consented to the use of an ambient scribe for clinic note documentation during this visit. Orders: Orders FL barium swallow Today R13.10 - Dysphagia, unspecified TSH reflex Free T4 Today I63.9 - Cerebral infarction, unspecified, Z13.29 - Encounter for screening for other suspected endocrine disorder Vitamin D 25-OH Total Today I63.9 - Cerebral infarction, unspecified, Z13.21 - Encounter for screening for nutritional disorder Comprehensive Met. Panel Today I63.9 - Cerebral infarction, unspecified, Z00.00 - Encounter for general adult medical examination without abnormal findings Hemoglobin A1c Today I63.9 - Cerebral infarction, unspecified, Z13.1 - Encounter for screening for diabetes mellitus Lipid Panel Today E78.00 - Pure hypercholesterolemia, unspecified, I63.9 - Cerebral infarction, unspecified Vitamin B12 and Folate Today I63.9 - Cerebral infarction, unspecified, Z13.21 - Encounter for screening for nutritional disorder Complete Blood Count Auto Diff Today I63.9 - Cerebral infarction, unspecified, Z13.0 - Encounter for screening for diseases of the blood and blood-forming organs and certain disorders involving the immune mechanism Medications: Refilled ammonium lactate 12% (AmLactin) 1 appl topical DAILY 225 grams 1RF I63.9 - Cerebral infarction, unspecified
--- OUTSIDE RECORDS SUMMARY | 2025-01-22 13:35 | XMS_ITS | Patient Health Record ---
Author Organization [facility] Address [address] [place] [address] Care Team Providers Care Medical Staff Services Coordinator Name Role Phone Tello Minor MD Primary Care Provider Alban Harper [phone] Allergies Allergen (clinical drug ingredient) Drug/Non Drug [...] Risk Notes Problem Diverticular disease of colon (391628078) Diverticulosis of large intestine without perforation or abscess without bleeding (K57.30) Active confirmed Problem Abnormal feces (954261944) Positive colorectal cancer screening using Cologuard test (R19.5) Active confirmed Plan Of Treatment Future Test Test Name Order Date COLONOSCOPY 08/10/2023 Insurance Providers Payer Name Payer Address Payer Phone Subscriber Number Group Number Insured Name Patient Relationship to Insured Coverage Start Date Coverage End Date MEDICARE OF [place] [address] [place] [address] [id number] ANDREW JOHNSON Self - patient is the insured MEDICAID OF [facility] [address] [place] [address] [id number] ANDREW JOHNSON Self - patient is the insured Medical (General) History Medical History History ICD Code CVA in 2020--residual left hand weakness Denies [place],DM,Lung disease,renal disease + Cologuard in 03/2023 Lower extremity edema Periumbilical abdominal wall hernia Surgical History Surgery Date(Month/Year) Tonsils Hospitalization History Reason Date(Month/Year)
== END 2025-01-22 12:26 | disposition home or self-care (01) ==
LOC: HO.HMCH 11:28
DX: R13.10 Dysphagia, unspecified (principal); E78.5 Hyperlipidemia, unspecified; I63.9 Cerebral infarction, unspecified; J44.9 Chronic obstructive pulmonary disease, unspecified; I89.0 Lymphedema, not elsewhere classified; I83.11 Varicose veins of right lower extremity with inflammation

== ENCOUNTER → 2025-01-22 11:27 | Outpatient (BNVA) | payer MEDICARE, MEDICAID, SELFPAY | DX: R13.10 Dysphagia, unspecified (principal); E78.5 Hyperlipidemia, unspecified; I63.9 Cerebral infarction, unspecified; J44.9 Chronic obstructive pulmonary disease, unspecified; I89.0 Lymphedema, not elsewhere classified; I83.11 Varicose veins of right lower extremity with inflammation | CPT/HCPCS: 99212 ==

== ENCOUNTER 2025-02-25 11:08 | Outpatient (AMB) | payer MEDICARE, MEDICAID, SELFPAY ==
[2025-02-25 11:11] VITALS: BP 128/70; PULSE 69; O2SAT 98; BMI 23.7
--- NOTE | 2025-02-25 11:11 | A.OFFVIS_ITS ---
Vital Signs 02/25/25 11:11 Height 5 ft 10 in Weight 165 lb 5.547 oz BMI 23.7 BP 128/70 Blood Pressure Location Lt brachial Position Sitting Pulse 69 Pulse Source Pulse Oximeter Pulse Oximetry (%) 98 Oxygen Delivery Method Room Air Intake Visit Reasons: SOB, COPD, Allergies Penicillins Allergy (Unknown, Verified 02/25/25 11:14) Unknown HPI Comments Details: Jeremy is a pleasant 75-year-old male, current 100 pack year smoker, with underlying COPD and h/o CVA. He was referred by PCP for pulmonary evaluation. He recently underwent a PFT in October consistent with moderate COPD. He reports chronic symptoms including coughing, wheezing at night when lying down, and shortness of breath. The patient's dyspnea occurs with exertion, such as walking to the mailbox, but he is not symptomatic at rest. He produces a significant amount of clear mucus. He was prescribed an albuterol inhaler, which he has only used once with indeterminate effect, and previously used [id number] Primatene Mist. He has a significant smoking history, starting at age 15, with a peak of three packs per day, and currently smokes half a pack a day. He quit for three months following his stroke but resumed smoking. The patient has a history of possible asbestos exposure from a previous job. The patient also reports dysphagia, stating his epiglottis does not seem to work properly and that he must swallow three or four times for food to go down. He has a swallow study scheduled for May. This is associated with excessive salivation and drooling, which he states began after a stroke about four years ago. He denies any history of aspiration pneumonia. His past medical history is significant for a stroke four years ago, with re sidual dysfunction of his left index finger and thumb. A workup at the time included carotid ultrasounds, but the cause was not definitively identified. He recently underwent a vein procedure on his leg and now uses compression boots. He denies a history of childhood asthma, and his family history is positive for asthma in a nephew, otherwise no pertinent family history. Pulmonology History - Chronic Obstructive Pulmonary Disease: Diagnosed via breathing test in October, with findings indicating moderate severity. - Symptoms: Reports chronic cough productive of clear mucus, wheezing at night when lying down, and exertional dyspnea. - Tobacco Use: Smoker since age 15, formerly up to three packs per day, currently smokes half a pack per day. - Past Inhaler Use: Has an albuterol inhaler that has been used once, with past use of Primatene Mist. - Occupational Exposure: Possible past exposure to asbestos. - Imaging: Chest X-ray in August showed atelectasis. [facility] Medical History (Updated 02/25/25 @ 16:47 by Guerita Jarrell NP) COPD (chronic obstructive pulmonary disease) Hyperlipidemia Cerebral aneurysm Surgical History No history of previous surgery Family History Mother No problems noted. Other Stroke Social History Household Members: Family Housing: House Do you presently have visiting nurse or other home services: No Alcohol intake: never Patient Tobacco Use Status: Current everyday Tobacco user Tobacco use type: Cigarette Cigarette Packs Per Day: 0.5 Cigarettes Per Day: 10 Years Smoked: 55 e-Cigarette/Vaping Use: Never Used Second Hand Smoke Exposure: Yes service: No Current occupational status: retired Cognitive needs: No Hearing needs: No Vision needs: Yes (glasses) Review of Systems Narrative Const Denies chills, Denies excessive sweating, Denies fever(s), Denies headache(s) and Denies night sweats Eyes Denies dry eyes, Denies irritation and Denies itchy eyes ENT Reports Normal hearing present, Denies headache(s), Denies nasal congestion, Denies nasal discharge and Denies sore throat Card Denies chest pain, Denies chest pain at rest, Denies chest pain with activity, Denies claudication, Denies leg edema, Denies orthopnea and Denies paroxysmal nocturnal dyspnea Resp Denies chest congestion, Denies excessive phlegm production, Denies pain on inspiration, Denies pain with cough and Denies stridor Musc Denies myalgias Neuro Reports Normal hearing present and Denies headache(s) Endo Denies excessive sweating Jasson/Lymph Denies lymphadenopathy Aller/Immun Denies itchy eyes Physical Exam Exam Exam: Vital Signs: Last Vital Signs Pulse 69 02/25/25 11:11 BP 128/70 02/25/25 11:11 Pulse Ox 98 02/25/25 11:11 Oxygen Delivery Method Room Air 02/25/25 11:11 BMI result Body Mass Index 23.7 Const General: cooperative, healthy appearing, comfortable, no acute distress, well developed and alert Orientation/consciousness: patient oriented x3 Limitations: no limitations HEENT Head: Yes normal to inspection, Yes normocephalic and Yes atraumatic Ears: hearing grossly normal bilaterally and external ears normal Eyes General: appearance normal, both eyes and all related structures Eyelids: Yes eyelids normal Sclerae: sclerae normal EOM: EOMs intact bilaterally Neck Neck: Yes normal visual inspection and Yes no lymphadenopathy Lymphatic: no lymphadenopathy noted Chest Chest palpation & inspection: normal inspection of the chest Resp Effort & Inspection: normal respiratory effort, able to speak in complete sentences, no audible wheezes, no cough, no stridor, not tachypneic, no tripod positioning and no use of accessory muscles Auscultation: diminished lung sounds Cardio Jugular venous distension: no JVD Rate: regular rate Rhythm: regular rhythm Skin Other: warm, dry General skin exam: no rashes or lesions noted Neuro General: patient oriented x3 Cranial nerves: Yes Normal hearing present Cognition (Neuro): normal cognition Gait exam (Neuro): Normal gait present Extrem General: Yes normal to inspection, Yes capillary refill normal, Yes no clubbing, cyanosis or edema and Yes no pedal edema Psych Appearance: grossly normal and well kempt Speech and movement: Normal speech and movement present and Clear speech present Affect: normal affect Attitude: cooperative Thought process: Normal thought process present Thought content: Normal thought content present Insight: Good insight present (Psych) Judgement: Good judgement present (Psych) Results Reviewed Results Reviewed: [address] [address] XRay Report Signed Patient: Jeremy Winter MR#: [id number] : 1950 Acct:[id number] Age/Sex: 74 / M ADM Date: 08/20/24 Loc: [facility] Attending Dr: Juliette Rao PA-C Ordering Physician: Juliette Rao PA-C Date of Service: 08/20/24 Procedure(s): XR chest 2V Accession Number(s): [id number] cc: Juliette Rao PA-C~ EXAMINATION: XR CHEST CLINICAL INFORMATION: R06.02 - Shortness of breath COMPARISON: April 08, 2020 TECHNIQUE: 2 views of the chest were obtained. FINDINGS: Heart size is within normal limits. Density projecting over the lower lungs bilaterally is related to overlying soft tissue. There is minimal linear density in the left lung base. Osseous structures are otherwise unremarkable. XR/XR chest 2V IMPRESSION: Minimal left basilar atelectasis. Electronically signed by: Gilmer Fonseca MD 08/20/2024 11:45 AM EDT RP Dictated By: Gilmer Fonseca MD Signed By: <Electronically signed by Gilmer Fonseca MD in OV> 08/20/24 1145 DD/ 1120 TD/TT: 08/20/24 1126 Biochemical Engineer: Assessment & Plan Assessment & Plan (1) COPD (chronic obstructive pulmonary disease): Code(s): J44.9 - Chronic obstructive pulmonary disease, unspecified Category: Medical (2) Chronic cough: Code(s): R05.3 - Chronic cough Category: Medical (3) Tobacco use disorder: Code(s): F17.200 - Nicotine dependence, unspecified, uncomplicated Category: Medical Plan Discussed with the patient his recent diagnosis of moderate COPD, which is consistent with his symptoms of shortness of breath, wheezing, and cough. Recommended initiating a daily maintenance inhaler, Breo, which contains an inhaled steroid and a long-acting bronchodilator to help improve his lung function and reduce symptoms. Educated him on the proper use of the inhaler, emphasizing a slow, deep inhalation and the necessity of rinsing his mouth afterward to prevent oral thrush. Advised him to contact the office if the medication is too expensive, as alternatives are available. Given his extensive smoking history and chronic cough recommended a chest CT to assess for any underlying parenchymal conditions contributing to symptoms. We also discussed smoking cessation as the most effective treatment for his condition. Provided anticipatory guidance, instructing him to call if he experiences worsening dyspnea, persistent wheezing, or a change in sputum color. A follow-up visit is scheduled in 8-10 weeks to review his response to treatment and the CT scan results. All questions were answered and patient is in agreement of plan. Patient was informed and verbally consented to the use of an ambient scribe for clinic note documentation during this visit. Orders: Orders CT chest wo IV con Today R05.3 - Chronic cough Medications: New fluticasone furoate-vilanterol 100-25 mcg/dose (Breo Ellipta) 1 inh inhalation DAILY 60 ea 3RF Coding Level of Care Code New Pt Level 4 (26774) Diagnoses COPD (chronic obstructive pulmonary disease) J44.9 Chronic cough R05.3 Tobacco use disorder F17.200
== END 2025-02-25 11:58 | disposition home or self-care (01) ==
LOC: HO.HPS 11:09
PROVIDERS: Visit Provider Nurse Practitioner Family
DX: J44.9 Chronic obstructive pulmonary disease, unspecified (principal); R05.3 Chronic cough; F17.200 Nicotine dependence, unspecified, uncomplicated
CPT/HCPCS: 99204

== ENCOUNTER → 2025-02-25 11:08 | Outpatient (BNVA) | payer MEDICARE, MEDICAID, SELFPAY | PROVIDERS: Visit Provider Nurse Practitioner Family | DX: J44.9 Chronic obstructive pulmonary disease, unspecified (principal); R05.3 Chronic cough; F17.200 Nicotine dependence, unspecified, uncomplicated | CPT/HCPCS: 99202 ==